=== PATIENT | male | born 1930 | race Caucasian/White ===

== ENCOUNTER 2016-06-18 20:53 | Inpatient (IN) | payer OTHER, BC ==
[~2016-06-18] VITALS: Ht 180.3 cm; Wt 65.9 kg
[~2016-06-18 20:53] MED LIST: ALFU10TA30 PO; ASPEC81 PO; ATEN-173 PO; CLC100 PO; Centrum Silver PO; Ginseng PO; Lorazepam PO; ZINC PO; [UNRECOGNIZED DRUG - OTHER]
[2016-06-19] VITALS (15 sets, daily range): BP systolic 121–199; BP diastolic 72–120; PULSE 76–102; TEMP 36.6–37.1; O2SAT 94–98; Ht 180.3 cm; Wt 65.9 kg
[2016-06-19] MEDS ORDERED: ALUMINUM/MAGNESIUM/SIMETH (MAALOX MAX) 30 ML UDC PO PRN (02:00)
[2016-06-19] MEDS ORDERED: MAGNESIUM HYDROXIDE SUSP 30 ML UDC PO PRN (02:00)
[2016-06-19] MEDS ORDERED: ACETAMINOPHEN 325 MG TAB PO PRN (02:00)
[2016-06-19] MEDS ORDERED: POLYETHYLENE (MIRALAX) 17 GM PACK PO PRN (02:00)
[2016-06-19 02:16] LABS: HEMATOCRIT 25.9 % (42-52); MEAN CELL VOLUME 92.8 fL (80-100); PLATELET COUNT 216 K/uL (130-400); RED BLOOD COUNT 2.79 M/uL (4.7-6.1); WHITE BLOOD COUNT 7.74 K/uL (4.8-10.8)
[2016-06-19 02:25] LABS: INR 1.1 (0.9-1.1); PARTIAL THROMBOPLASTIN RATIO 1.1; PROTHROMBIN TIME (PATIENT) 11.7 SECONDS (9.0-12.0)
[2016-06-19 02:28] LABS: MEAN CORPUSCULAR HGB CONC 31.3 g/dl (32-36)
[2016-06-19 02:34] LABS: BASO % 0.1 %; BASO ABS # 0.01 K/uL (0-0.2); COMPLETE YES; EOS % 0.5 %; IG% 0.3 %; LYMPH ABS # 1.24 K/uL (1.2-3.4); MONO % 7.8 %; NEUT % 75.3 %; POLYCHROMASIA 1+
[2016-06-19] MEDS ORDERED: ONDANSETRON INJ 2 MG/ML 2 ML VIAL ONE (02:41)
[2016-06-19] MEDS: ONDANSETRON INJ 2 MG/ML 2 ML VIAL IV PRN ×2 (02:45→09:36)
[2016-06-19 02:47] LABS: ALB/GLOB RATIO 0.8 (0.9-2); BUN/CREATININE RATIO 20.1 (10-20); CALCIUM 8.2 mg/dl (8.5-10.1); POTASSIUM 4.5 mmol/L (3.5-5.1)
[2016-06-19] MEDS ORDERED: OXYCODONE/ACETAMINOPHEN 5-325 TAB PO PRN (03:00)
[2016-06-19] MEDS ORDERED: HydrALAZINE HCL 20 MG/ML VIAL IV. PRN ×2 (03:00→09:00)
[2016-06-19] MEDS ORDERED: HydrALAZINE HCL 20 MG/ML VIAL ONE (03:12)
[2016-06-19 03:17] LABS: CREATININE 1.9 mg/dl (0.60-1.40)
[2016-06-19] MEDS ORDERED: PANTOprazole INJ 80 MG in DEXTROSE 5% 100ML IV ONE (03:30)
[2016-06-19] MEDS: PANTOprazole INJ 40 MG in DEXTROSE 5% 100ML IV SCH ×5 (03:32→20:24)
[2016-06-19] MEDS: SODIUM CHLORIDE 0.9% 1000ML 1,000 ML IV SCH ×4 (03:32→22:17)
--- NOTE | 2016-06-19 03:57 | History and Physical ---
History & Physical Date & Time of Service: Jun 19, 2016 at 02:58 Chief Complaint: Diarrhea, Gi Bleed Primary Care Physician: Delonte Fragoso M.D. History of Present Illness Source: patient, hospital records ([facility] ER notes) Mr Sylvester is an 85 year old male who is a direct transfer from [facility] for GI bleed due to no colonoscopy suite at [facility]. Yesterday around 3am he started feeling constipated but was able to pass small amounts of formed stool. Around 7am this turned into diarrhea and he had 7 bowel movements from 7-12am. Around midday he noticed blood on wiping and was so weak he couldn't get off of the toilet. He therefore called his daughter in law to call for an ambulance to take him to the ER. He denies any abdominal pain. He is a non smoker, denies NSAIDs, but is on 81mg aspirin (no previous AL or stroke). He was recently admitted as per the [facility] ER notes in april with a duodenal ulcer (Dr Caal) requiring a blood transfusion. He has been having GI issues since Jan 2016. These episode of intermittent diarrhea and constipation last for around 2 days each time. He estimates he has lost about 10lb of weight in this time. He reports 7 admissions to [facility] for GI bleeding but is unsure how many EGDs he has had. He thinks his last colonoscopy was around 20 years previously. He tells me he was very active up until his 2 years previously after having Alzheimer's disease but also these episodes of diarrhea and his blood pressure medication mean he has no energy anymore. Past Medical/Surgical History Renal cell carcinoma s/p nephrectomy (15 year previously) - on Inlyta under Dr Stoner. Recently had iron infusions. Intermittent diarrhea and constipation since Jan 2016 - under Dr Caal, recently found ulcer. As per [facility] ER notes he was admitted there in april with duodenal bulb ulcer requiring a blood transfusion. HTN Anxiety PSHx Right nephrectomy (he report 15 years ago) Spinal surgery - he is unsure about the exact operation but possibly done due to bone mets from renal ca. Social History Smoking Status: Never Smoker Smokeless Tobacco Use: No Alcohol Use: none Drug Use: none Marital Status: Housing status: lives alone Occupational Status: retired Immunizations History of Influenza Vaccine: No Influenza Vaccine Date: Mar 02, 2005 History of Tetanus Vaccine?: Yes Tetanus Immunization Date: Jul 31, 2002 History of Pneumococcal: Yes Pneumococcal Date: Jul 31, 2001 History of Hepatitis B Vaccine: No Multi-Drug Resistant Organisms History of MDRO: No Allergies Coded Allergies: Penicillins (Verified Allergy, Mild, RASH, 05/27/09) Naproxen (Unverified Allergy, ., 10/31/10) Home Medications Scheduled Alfuzosin Hcl (Uroxatral), 10 MG PO DAILY Aspirin Enteric Coated (Ecotrin Or Generic *), 81 MG PO DAILY Atenolol (Tenormin), 25 MG PO DAILY Docusate Sodium (Colace *), 100 MG PO TID [Centrum Silver], 1 TABLET PO DAILY [Ginseng], 100 MG PO DAILY [Lorazepam], 0.5 MG PO PRN [Myrlax], PRN [Zinc], 50 MG PO DAILY Review of Systems Constitutional: No chills, No fever Eyes: No worsening of vision ENT: + hearing loss (chronic) Respiratory: + dyspnea on exertion, No cough, No dyspnea at rest, No hemoptysis , No sputum, No wheezing Cardiovascular: No PND, No chest pain, No claudication, No edema, No orthopnea , No palpitations Abdomen: + GI bleeding, + diarrhea, + nausea, No constipation, No pain, No vomiting Musculoskeletal: No joint pain, No muscle pain Genitourinary - Male: No dysuria, No hematuria, No urinary frequency Psychiatric: + anxiety, + depression symptoms Endocrine: No excessive thirst, No excessive urination Hematologic / Lymphatic: + abnormal bleeding/bruising Integumentary: No itch, No rash Physical Exam Vital Signs Date Time Temp Pulse Resp B/P Pulse Ox O2 Delivery O2 Flow Rate FiO2 06/19/16 02:42 99 171/103 06/19/16 01:20 36.6 91 18 199/120 94 Room Air General Appearance: no apparent distress, + thin Head: normocephalic, atraumatic Eyes: normal inspection, PERRL, EOMI ENT: normal ENT inspection, pharynx normal (dry mucus membranes) Neck: supple, no adenopathy, no JVD, no carotid bruits, trachea midline Respiratory/Chest: chest non-tender, lungs clear, normal breath sounds, no respiratory distress, no accessory muscle use Cardiovascular: regular rate, rhythm, no edema, no murmur, normal peripheral pulses Abdomen/GI: normal bowel sounds, non tender, soft Extremities/Musculoskelatal: no calf tenderness, normal capillary refill, no pedal edema, normal range of motion, + pertinent finding (left lower leg hematoma, (patient report a few weeks old and improving)) 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, no motor/sensory deficits, alert, normal mood/affect Skin: normal color, warm/dry, + pertinent finding (hematoma on left lower limb as above) Diagnostics Laboratory Results Results Past 24 Hours Test 06/19/16 02:05 Range/Units White Blood Count 7.74 4.8-10.8 K/uL Red Blood Count 2.79 4.7-6.1 M/uL Hemoglobin 8.1 14.0-18.0 g/dL Hematocrit 25.9 42-52 % Mean Corpuscular Volume 92.8 80-100 fL Mean Corpuscular Hemoglobin 29.0 25-34 pg Mean Corpuscular Hemoglobin Concent 31.3 32-36 g/dl Platelet Count 216 130-400 K/uL Mean Platelet Volume 9.0 7.4-10.4 fL Neutrophils (%) (Auto) 75.3 % Lymphocytes (%) (Auto) 16.0 % Monocytes (%) (Auto) 7.8 % Eosinophils (%) (Auto) 0.5 % Basophils (%) (Auto) 0.1 % Neutrophils # (Auto) 5.83 1.4-6.5 K/uL Lymphocytes # (Auto) 1.24 1.2-3.4 K/uL Monocytes # (Auto) 0.60 0.11-0.59 K/uL Eosinophils # (Auto) 0.04 0-0.5 K/uL Basophils # (Auto) 0.01 0-0.2 K/uL RDW Standard Deviation 53.1 36.4-46.3 fL RDW Coefficient of Variation 16.0 11.5-14.5 % Immature Granulocyte % (Auto) 0.3 % Immature Granulocyte # (Auto) 0.02 0.00-0.02 K/uL Polychromasia 1+ Prothrombin Time 11.7 9.0-12.0 SECONDS Prothromb Time International Ratio 1.1 0.9-1.1 Activated Partial Thromboplast Time 28.2 21.0-31.0 SECONDS Partial Thromboplastin Ratio 1.1 Sodium Level 143 136-145 mmol/L Potassium Level 4.5 3.5-5.1 mmol/L Chloride Level 106 98-107 mmol/L Carbon Dioxide Level 29 21-32 mmol/L Anion Gap 8.0 3-11 mmol/L Blood Urea Nitrogen 38 7-18 mg/dl BUN/Creatinine Ratio 20.1 10-20 Random Glucose 102 70-99 mg/dl Calcium Level 8.2 8.5-10.1 mg/dl Total Bilirubin 0.3 0.2-1 mg/dl Aspartate Amino Transf (AST/SGOT) 6 15-37 U/L Alanine Aminotransferase (ALT/SGPT) 11 12-78 U/L Alkaline Phosphatase 62 45-117 U/L Total Protein 5.7 6.4-8.2 gm/dl Albumin 2.5 3.4-5.0 gm/dl Globulin 3.2 2.5-4.0 gm/dl Albumin/Globulin Ratio 0.8 0.9-2 Diagnostic Radiology AXR @ [facility] - impression: moderate stool burden. No bowel obstruction. EKG Ordered for the morning Impression Assessment and Plan Documented By: Rajiv Dimas 85 yo male with GI bleed, Hx duodenal ulcer and renal ca. He is unsure about his medical problems and medications and his medication reconciliation from [facility] does not appear to be accurate therefore will request his outpatient records, GI Bleed, Hx duodenal ulcer - Hgb 8.1 - trend H&H - Pantoprazole drip - NPO + IVF @ 125 MLS/HR - Consult GI (previously under Dr Caal @ [facility]) Hx renal cell carcinoma - Hold Inlyta as has association with GI bleeding, perforation and fistula formation + may be cause of diarrhea and nausea - Consult Dr Stoner Anxiety - Continue PRN alprazolam - Continue clonidine 0.1mg BID Hypertension - Currently BP elevated (suspect due to patient not taking usual meds) - Add hydralazine 10 mg Q6H IV PRN for sBP > 180, dBP > 90 - Continue usual medications amlodipine and clonidine - Hold carvedilol 12.5 mg BID as he is having a GI bleed + he notes one of his blood pressure medications is making him feel tired and which may be the carvedilol. Glaucoma - Latanoprost 1 drop each eye daily - I suspect he is on brimonidine in addition but given the reconciled medications from [facility] show this as a powder will await for his outpatient records to prescribe this. Suspect BPH as he is on alfuzosin as per [facility] notes so will continue this pending O/P records Gabapentin 100 mg HS - unsure why he is on this small dose. Will hold currently as unclear indication and increased risk of drowsiness and balance issues. Miscellaneous - Falls risk due to light headedness and weakness secondary to GI bleed VTE prophylaxis - contraindicated chemical prophylaxis - SCDs + TEDs Code - Full, he is unsure about this however and may change his mind Disposition - admit to telemetry, may be able to step down if stable over next 24 hours. Resident Physician Supervision Note: I was present with [Name of resident] during the history and exam. I discussed the case with the resident and agree with the findings and plan as documented in the note. Any exceptions or clarifications are listed here: Ot seen/examined State that he had a GI bleed 6 weeks prior due to PUD and has had increasing bleeding for a few days. Became weak for and [facility] transferred as the endiscopy suite is under renovation O/E AAO x 2 S1,2 CTAB NTND P: Trend Hb Transfuse PRN - pt received 1/2 unit prior to arrival GI consult requested Above discussed with pt and resident Level of Care Telemetry Advanced Directives Existing Living Will: No Existing Power of Armored Service Technician: No Resuscitation Status FULL RESUSCITATION VTE Prophylaxis VTE Risk Assessment Done? Y/N: Yes Risk Level: Moderate Given or contraindicated: T.E.D. Stockings, SCD's, Contraindicated Additional Copies To Delonte Fragoso M.D. Resident Tracking Resident Involvement: Resident Care Provided Care Provided: Adult Hospital Medicine
[2016-06-19 08:27] LABS: HEMATOCRIT 23.4 % (42-52)
[2016-06-19 09:24] LABS: BUN/CREATININE RATIO 20.8 (10-20); CALCIUM 8.1 mg/dl (8.5-10.1); CREATININE 1.8 mg/dl (0.60-1.40); POTASSIUM 4.1 mmol/L (3.5-5.1)
[2016-06-19] MEDS: AMLODIPINE BESYLATE 5 MG TAB PO SCH (09:37)
[2016-06-19] MEDS: ALFUZosin TAB 10 MG TAB PO SCH (09:37)
[2016-06-19] MEDS: CLONIDINE HCL 0.1 MG TAB PO SCH ×2 (09:37→20:25)
--- NOTE | 2016-06-19 11:45 | Family Medicine Progress Note ---
Progress Note Date of Service Jun 19, 2016. Subjective Pt evaluation today including: conversation w/ patient, physical exam, chart review, lab review Pain: Denies PO Intake: NPO Voiding: no voiding problems No acute events overnight. Patient continues to have diarrhea. Had diarrhea this morning and states noticed dark red blood mixed with loose stool. Complains to fatigue and weakness. Denies abdominal pain, nausea, vomiting, chest pain, SOB, dizziness, or any other additional symptoms. Constitutional: + fatigue, + weakness, + weight loss, No chills, No fever Respiratory: No cough, No dyspnea on exertion, No shortness of breath, No sputum, No wheezing Cardiovascular: No chest pain, No edema Abdomen: + diarrhea, No constipation, No nausea, No pain, No vomiting Musculoskeletal: No muscle pain Male : No dysuria Skin: No rash Medications Current Inpatient Medications Medications (Trade) Dose Ordered Sig/Katherine Route Start Time Stop Time Status Last Admin Dose Admin Sodium Chloride (Nss 1000ml) 1,000 ml @ 125 mls/hr Q8H IV 06/19/16 01:53 07/19/16 01:52 06/19/16 03:32 125 MLS/HR Acetaminophen (Tylenol Tab) 650 mg Q4H PRN PO 06/19/16 02:00 07/19/16 01:59 Al Hydrox/Mg Hydrox/Simethicone (Maalox Max Susp) 15 ml Q4H PRN PO 06/19/16 02:00 07/19/16 01:59 Ondansetron HCl (Zofran Inj) 4 mg Q6H PRN IV 06/19/16 02:00 07/19/16 01:59 06/19/16 09:36 4 MG Clonidine HCl (Catapres Tab) 0.1 mg BID PO 06/19/16 09:00 07/19/16 08:59 06/19/16 09:37 0.1 MG Amlodipine Besylate (Norvasc Tab) 2.5 mg QAM PO 06/19/16 09:00 07/19/16 08:59 06/19/16 09:37 2.5 MG Latanoprost (Xalatan Oph Soln) 1 drops QPM OP 06/19/16 21:00 07/19/16 20:59 Alfuzosin HCl (Uroxatral Tab) 10 mg QAM PO 06/19/16 09:00 07/19/16 08:59 06/19/16 09:37 10 MG Alprazolam (Xanax Tab) 0.25 mg Q8H PRN PO 06/19/16 03:00 07/19/16 02:59 Oxycodone/ Acetaminophen 1 tab 1 tab Q4H PRN PO 06/19/16 03:00 07/03/16 02:59 Pantoprazole Sodium/Dextrose (Protonix Inj/D5 100ml) 100 ml @ 20 mls/hr Q5H IV 06/19/16 04:00 07/19/16 03:59 06/19/16 08:56 20 MLS/HR Hydralazine HCl (HydrALAZINE INJ) 5 mg Q6H PRN IV. 06/19/16 09:00 07/19/16 08:59 Objective Vital Signs Date Time Temp Pulse Resp B/P Pulse Ox O2 Delivery O2 Flow Rate FiO2 06/19/16 08:01 37.1 102 16 133/84 97 Room Air 06/19/16 04:00 Room Air 06/19/16 03:45 135/73 06/19/16 03:15 36.8 88 18 171/103 97 Room Air 06/19/16 02:42 99 171/103 06/19/16 01:20 36.6 91 18 199/120 94 Room Air Physical Exam General Appearance: WD/WN, no apparent distress, + cachetic, + thin Neck: supple, trachea midline Respiratory/Chest: chest non-tender, lungs clear, normal breath sounds, no respiratory distress Cardiovascular: regular rate, rhythm, no edema, no murmur Abdomen: normal bowel sounds, non tender, soft Extremities: non-tender, no pedal edema Neurologic/Psychiatric: alert, normal mood/affect, oriented x 3 Skin: normal color, warm/dry Laboratory Results Results Past 24 Hours Test 06/19/16 02:05 06/19/16 08:04 06/19/16 13:55 Range/Units White Blood Count 7.74 4.8-10.8 K/uL Red Blood Count 2.79 4.7-6.1 M/uL Hemoglobin 8.1 7.4 14.0-18.0 g/dL Hematocrit 25.9 23.4 42-52 % Mean Corpuscular Volume 92.8 80-100 fL Mean Corpuscular Hemoglobin 29.0 25-34 pg Mean Corpuscular Hemoglobin Concent 31.3 32-36 g/dl Platelet Count 216 130-400 K/uL Mean Platelet Volume 9.0 7.4-10.4 fL Neutrophils (%) (Auto) 75.3 % Lymphocytes (%) (Auto) 16.0 % Monocytes (%) (Auto) 7.8 % Eosinophils (%) (Auto) 0.5 % Basophils (%) (Auto) 0.1 % Neutrophils # (Auto) 5.83 1.4-6.5 K/uL Lymphocytes # (Auto) 1.24 1.2-3.4 K/uL Monocytes # (Auto) 0.60 0.11-0.59 K/uL Eosinophils # (Auto) 0.04 0-0.5 K/uL Basophils # (Auto) 0.01 0-0.2 K/uL RDW Standard Deviation 53.1 36.4-46.3 fL RDW Coefficient of Variation 16.0 11.5-14.5 % Immature Granulocyte % (Auto) 0.3 % Immature Granulocyte # (Auto) 0.02 0.00-0.02 K/uL Polychromasia 1+ Prothrombin Time 11.7 9.0-12.0 SECONDS Prothromb Time International Ratio 1.1 0.9-1.1 Activated Partial Thromboplast Time 28.2 21.0-31.0 SECONDS Partial Thromboplastin Ratio 1.1 Sodium Level 143 140 136-145 mmol/L Potassium Level 4.5 4.1 3.5-5.1 mmol/L Chloride Level 106 106 98-107 mmol/L Carbon Dioxide Level 29 25 21-32 mmol/L Anion Gap 8.0 9.0 3-11 mmol/L Blood Urea Nitrogen 38 38 7-18 mg/dl Creatinine 1.90 1.80 0.60-1.40 mg/dl Est Creatinine Clear Calc Drug Dose 24.2 26.0 ml/min Estimated GFR () 36.4 38.9 Estimated GFR (Non- 31.4 33.6 BUN/Creatinine Ratio 20.1 20.8 10-20 Random Glucose 102 96 70-99 mg/dl Calcium Level 8.2 8.1 8.5-10.1 mg/dl Total Bilirubin 0.3 0.2-1 mg/dl Aspartate Amino Transf (AST/SGOT) 6 15-37 U/L Alanine Aminotransferase (ALT/SGPT) 11 12-78 U/L Alkaline Phosphatase 62 45-117 U/L Total Protein 5.7 6.4-8.2 gm/dl Albumin 2.5 3.4-5.0 gm/dl Globulin 3.2 2.5-4.0 gm/dl Albumin/Globulin Ratio 0.8 0.9-2 Assessment and Plan 1. GI Bleed with hx of duodenal ulcer - Current Hgb is 7.4 - Continue to trend H&H - C/w Pantoprazole drip - NPO + IVF @ 125 MLS/HR - EGD was done in [facility] on 04/30/2016 and showed 1) A hiatus hernia 2) Normal stomach, biopsy was taken 3) Ulcers found in the distal duodenal bulb, Epinephrine injection therapy was applied to control bleeding. Argon beam coagulation was applied to control bleeding - Colonoscopy was done in [facility] (07/06/2009) and showed 1) Moderately severe diverticulosis found in the sigmoid colon 2) Internal hemorrhoids - Consult GI (previously under Dr Caal @ [facility]) and awaiting for their recommendation and EGD 2. Worsening Anemia - Patient Hgb is trending down - Continue to trend H&H - Transfuse 1 unit of PRBC 3. History of renal cell carcinoma - Continue to hold Inlyta as has association with GI bleeding, perforation and fistula formation + may be cause of diarrhea and nausea - Consult Dr Stoner (Heme/Onc) 4. Anxiety - Continue PRN alprazolam - Continue clonidine 0.1mg BID 5. Hypertension - Currently BP elevated (suspect due to patient not taking usual meds) - Add hydralazine 10 mg Q6H IV PRN for sBP > 180, dBP > 90 - Continue usual medications Amlodipine 2.5mg qam and Clonidine 0.1 BID - Continue to hold carvedilol 12.5 mg BID (GI bleed and he notes one of his blood pressure medications is making him feel tired and which may be the carvedilol). 6. Glaucoma - Latanoprost 1 drop each eye daily - I suspect he is on brimonidine in addition but given the reconciled medications from [facility] show this as a powder will await for his outpatient records to prescribe this. 7. BPH - C/w Alfuzosin 10mg qam 8. Currently holding Gabapentin 100mg given not sure why he is on such small dose. Will continue to hold as unclear indication and increased risk of drowsiness and balance issues. 9. DVT prophylaxis - SCDs and TEDs 10. Code Status - Full code Resident Physician Supervision Note: I interviewed and examined the patient. Discussed with Dr. Sanchez and agree with findings and plan as documented in the note. Any exceptions or clarifications are listed here: 85-year-old male admitted in transfer from [facility] for acute GI bleed. The endoscopy unit at [facility] temporary closed for renovations. I was able to speak with Dr. Orozco, [place] [facility], who had seen the patient previously, most recently for an EGD in April 2016. At that time a bleeding ulcer was found in the distal duodenal bulb. Upon my examination, the patient was tired but without complaints. He denied abdominal pain. At that time he was on intravenous fluids and protonic strip. The patient did have one heme-positive stool. Repeat hemoglobin today showed a continued drop and as such agree with transfusion 1 unit packed red blood cells. Awaiting gastroenterology consultation for EGD. Documented By: Wang Kirkpatrick Continued [facility] stay due to: multiple IV medications needed Discharge planning: uncertain
[2016-06-19 14:35] LABS: HEMATOCRIT 21.1 % (42-52)
[2016-06-19] MEDS ORDERED: SUCR1TAB29 PO (15:56)
[2016-06-19] MEDS ORDERED: AXIT5TAB PO (15:56)
[2016-06-19] MEDS ORDERED: AMLO2.5T PO (15:56)
[2016-06-19] MEDS ORDERED: ALPPOPS5 OPL (15:56)
[2016-06-19] MEDS ORDERED: PARO1TAB27 PO (15:56)
[2016-06-19] MEDS ORDERED: LATA0.5S OP (15:56)
[2016-06-19] MEDS ORDERED: PANT40TA PO (15:56)
[2016-06-19] MEDS ORDERED: ALPR-411 PO (15:56)
[2016-06-19] MEDS ORDERED: BNC/20125 PO (15:56)
[2016-06-19] MEDS ORDERED: MULT-845 PO (15:56)
[2016-06-19] MEDS ORDERED: GABA-112 PO (15:56)
[2016-06-19] MEDS ORDERED: CARV12.52 PO (15:56)
[2016-06-19] MEDS ORDERED: OXYC-643 PO (15:56)
[2016-06-19] MEDS ORDERED: ONDA4TAB46 PO (15:56)
[2016-06-19] MEDS ORDERED: ZINC1CAP PO (15:56)
[2016-06-19] MEDS ORDERED: PROPOFOL IV EMULSION 10 MG/ML 20 ML VIAL IV ONE (16:55)
[2016-06-19] MEDS ORDERED: LIDOCAINE HCL 2% 2 ML VIAL (20MG/ML) ONE (16:55)
[2016-06-19] MEDS ORDERED: FENTANYL CITRATE INJ 50 MCG/1 ML 2 ML VIAL ONE (16:56)
--- NOTE | 2016-06-19 17:03 | Endo History and Physical ---
History & Physical Date of Service: Jun 19, 2016. Chief Complaint: Referring Physician: History of Present Illness melena; diarrhea; acute blood loss anemia Past Surgical History Hx Cardiac Surgery: No Hx Abdominal Surgery: No Hx Post-Op Nausea and Vomiting: No Hx Cancer Surgery: Yes (Right nephrectomy) Hx Thoracic Surgery: Yes (2 lumbar vertebra removed) Hx Orthopedic: No Hx Urinary Tract Surgery: No Social History Smoking Status: Never Smoker Smokeless Tobacco Use: No Hx Substance Use: No Hx Alcohol Use: No Allergies Coded Allergies: Penicillins (Verified Allergy, Mild, RASH, 05/27/09) Naproxen (Unverified Allergy, ., 10/31/10) Current Medications Reported Home Medications Medications Dose Route/Sig Max Daily Dose Days Date Category Carafate (Sucralfate) 1 Gm Tab 1 Tab PO BID 30 06/19/16 Reported Xalatan 0.005% Oph Michelle (Latanoprost) 0.005 % Michelle 1 Drops OP HS 06/19/16 Reported Alphagan P (Brimonidine Tartrate) 75 Drops/5 Ml Soln 1 Drops OPL BID 06/19/16 Reported Zinc Sulfate 220 Mg Cap 50 Mg PO DAILY 06/19/16 Reported Protonix (Pantoprazole Sodium) 40 Mg Tab 80 Mg PO DAILY 06/19/16 Reported Centrum Silver Adult 50+ (Multiple Vitamins W/ Minerals) 1 Tab Tab 1 Tab PO DAILY 06/19/16 Reported Inlyta (Axitinib) 5 Mg Tab 5 Mg PO Q12 06/19/16 Reported Oxycodone/Acetaminophen 5MG/325MG (Oxycodone/Acetaminophen) 1 Tab Tab 2 Tablets PO Q4H PRN 06/19/16 Reported Neurontin (Gabapentin) 100 Mg Cap 100 Mg PO HS 06/19/16 Reported Paxil (Paroxetine HCl) 20 Mg Tab 20 Mg PO DAILY 06/19/16 Reported Xanax (Alprazolam) 0.5 Mg Tab 0.5 Mg PO Q8 PRN 06/19/16 Reported Zofran (Ondansetron HCl) 4 Mg Tab 4 Mg PO Q6H PRN 06/19/16 Reported Coreg (Carvedilol) 12.5 Mg Tab 1 Tab PO DAILY 90 06/19/16 Reported Norvasc (Amlodipine Besylate) 2.5 Mg Tab 2.5 Mg PO DAILY 06/19/16 Reported Benicar Hct 20/12.5 (Olmesartan/HCTZ) Tab 1 Tab PO DAILY 30 06/19/16 Reported Colace * (Docusate Sodium) 100 Mg Cap 100 Mg PO TID 03/01/11 Reported Uroxatral (Alfuzosin HCl) 10 Mg Tab 10 Mg PO DAILY 10/18/10 Reported Ecotrin Or Generic * (Aspirin) 81 Mg Ectab 81 Mg PO DAILY 10/18/10 Reported Vital Signs Weight (Kilograms): 61.200 Height (Feet): 5 Height (Inches): 11.00 Date Time Temp Pulse Resp B/P Pulse Ox O2 Delivery O2 Flow Rate FiO2 06/19/16 16:57 36.7 98 18 143/87 98 Room Air 06/19/16 16:50 36.7 89 18 132/91 98 06/19/16 16:34 36.6 90 19 128/72 97 06/19/16 15:15 36.7 92 18 121/80 96 Room Air 06/19/16 12:17 36.8 94 20 130/77 97 Room Air 06/19/16 12:00 95 Room Air 06/19/16 08:01 37.1 102 16 133/84 97 Room Air 06/19/16 08:00 97 Room Air 06/19/16 04:00 Room Air 06/19/16 03:45 135/73 06/19/16 03:15 36.8 88 18 171/103 97 Room Air 06/19/16 02:42 99 171/103 06/19/16 01:20 36.6 91 18 199/120 94 Room Air Physical Exam AAo x3 Nl S1 S2 Lungs CTA Abd soft NT/ND + BS - CCE Assessment and Plan EGD for melena/diarrhea now
--- NOTE | 2016-06-19 17:59 | GI REPORT ---
Procedure Date: 06/19/2016 5:30 PM Procedure: Upper GI endoscopy Indications: Acute post hemorrhagic anemia, Melena, Acute duodenal ulcer, Suspected acute duodenal ulcer with hemorrhage Medicines: Propofol per Anesthesia Complications: No immediate complications. Estimated blood loss: Minimal. Estimated Blood Loss: Estimated blood loss was minimal. Procedure: Pre-Anesthesia Assessment: - Prior to the procedure, a History and Physical was performed, and patient medications and allergies were reviewed. The patient's tolerance of previous anesthesia was also reviewed. The risks and benefits of the procedure and the sedation options and risks were discussed with the patient. All questions were answered, and informed consent was obtained. Prior Anticoagulants: The patient has taken no previous anticoagulant or antiplatelet agents. ASA Grade Assessment: III - A patient with severe systemic disease. After reviewing the risks and benefits, the patient was deemed in satisfactory condition to undergo the procedure. After obtaining informed consent, the endoscope was passed under direct vision. Throughout the procedure, the patient's blood pressure, pulse, and oxygen saturations were monitored continuously. The On-site loaner was introduced through the mouth, and advanced to the third part of duodenum. The upper GI endoscopy was accomplished without difficulty. The patient tolerated the procedure well. Findings: The examined esophagus was normal. A small hiatus hernia was found. The proximal extent of the gastric folds (end of tubular esophagus) was 39 cm from the incisors. The hiatal narrowing was 41 cm from the incisors. The Z-line was 39 cm from the incisors. A widely patent, non-obstructing and mild Schatzki ring (acquired) was found at the gastroesophageal junction. The entire examined stomach was normal. The gastric body and gastric antrum were normal. Biopsies were taken with a cold forceps for histology. Estimated blood loss was minimal. Verification of patient identification for the specimen was done by the physician and general maintenance technician using the patient's name and medical record number. One non-bleeding cratered duodenal ulcer with no stigmata of bleeding was found in the first part of the duodenum and in the second part of the duodenum. The lesion was 15 mm in largest dimension. This is proximal to ampulla and provided mild resistance ( stenosis) at this site. The 2nd part of the duodenum and 3rd part of the duodenum were normal. Biopsies for histology were taken with a cold forceps for evaluation of celiac disease. Biopsies were taken with a cold forceps for histology. Estimated blood loss was minimal. Verification of patient identification for the specimen was done by the physician and general maintenance technician using the patient's name and medical record number. The cardia and gastric fundus were normal on retroflexion. Retained gastric contents are not identified on this exam. Impression: - Normal esophagus. - Small hiatus hernia. - Widely patent, non-obstructing and mild Schatzki ring. - Normal stomach. - Normal gastric body and antrum. Biopsied. - One non-bleeding duodenal ulcer with no stigmata of bleeding. (see above) - Normal 2nd part of the duodenum and 3rd part of the duodenum. Biopsied. Recommendation: - [facility]. - Clear liquid diet. - Use a proton pump inhibitor IV BID. - Await pathology results. - If bleeding occurs, obtained tagged red cell scan. Also if bleeding recurs and for diarrhea, colonoscopy( once stable0 should be considered to exclude bleeding sources and sources of diarrhea. MD Misha Ahuja MD 06/19/2016 5:58:50 PM This report has been signed electronically. Note Initiated On: 06/19/2016 5:30 PM I attest to the content of the Intraoperative Record and orders documented therein, exceptions below
--- NOTE | 2016-06-19 18:03 | Anesthesiology Progress Note ---
Anesthesia Post Op Note Date & Time Jun 19, 2016 at 18:02 Vital Signs Vital Signs Past 12 Hours Date Time Temp Pulse Resp B/P Pulse Ox O2 Delivery O2 Flow Rate FiO2 06/19/16 18:00 36.6 90 20 120/71 100 Room Air 06/19/16 17:45 36.6 83 20 92/54 100 Mask 06/19/16 17:10 36.6 99 20 142/82 97 Room Air 06/19/16 16:57 36.7 98 18 143/87 98 Room Air 06/19/16 16:50 36.7 89 18 132/91 98 06/19/16 16:34 36.6 90 19 128/72 97 06/19/16 16:00 96 Room Air 06/19/16 15:15 36.7 92 18 121/80 96 Room Air 06/19/16 12:17 36.8 94 20 130/77 97 Room Air 06/19/16 12:00 95 Room Air 06/19/16 08:01 37.1 102 16 133/84 97 Room Air 06/19/16 08:00 97 Room Air Notes Mental Status: alert / awake / arousable, participated in evaluation Pt Amnestic to Procedure: Yes Nausea / Vomiting: adequately controlled Pain: adequately controlled Airway Patency, RR, SpO2: stable & adequate BP & HR: stable & adequate Hydration State: stable & adequate Anesthetic Complications: no major complications apparent
[2016-06-19] MEDS: LATANOPROST 0.005% OP SOLN 2.5 ML BTL OP SCH (20:26)
[2016-06-19 20:37] LABS: HEMATOCRIT 23.9 % (42-52)
[2016-06-19] MEDS ORDERED: GABAPENTIN 100 MG CAP PO SCH (21:00)
[2016-06-20] VITALS (15 sets, daily range): BP systolic 112–146; BP diastolic 71–94; PULSE 70–90; TEMP 36.3–36.8; O2SAT 90–98
[2016-06-20] MEDS: PANTOprazole INJ 40 MG in DEXTROSE 5% 100ML IV SCH (01:30)
[2016-06-20 02:26] LABS: BASO % 0.1 %; BASO ABS # 0.01 K/uL (0-0.2); EOS % 0.9 %; HEMATOCRIT 23.4 % (42-52); IG% 0.4 %; LYMPH % 12.1 %; LYMPH ABS # 0.81 K/uL (1.2-3.4); MEAN CELL VOLUME 90.3 fL (80-100); MEAN CORPUSCULAR HEMOGLOBIN 29.7 pg (25-34); MEAN CORPUSCULAR HGB CONC 32.9 g/dl (32-36); MEAN PLATELET VOLUME 9.1 fL (7.4-10.4); MONO % 6.4 %; NEUT % 80.1 %; PLATELET COUNT 169 K/uL (130-400); RED BLOOD COUNT 2.59 M/uL (4.7-6.1); WHITE BLOOD COUNT 6.69 K/uL (4.8-10.8)
--- NOTE | 2016-06-20 02:49 | GASTROINTESTINAL CONSULTATION ---
DATE OF CONSULTATION: 06/19/2016 REQUESTING PHYSICIAN: Dr. Patino. CHIEF COMPLAINT: Melena, diarrhea, acute GI blood loss. HISTORY OF PRESENT ILLNESS: Mr. Sylvester is an 85-year-old male who was transferred from [facility] for symptoms of GI bleeding. The patient actually had a history of GI bleeding in April for which a large ulcer in the duodenum was apparently treated. The patient received 3-4 units of blood at that time by his history and was discharged on acid-blocking medication. The patient developed symptoms of a bout of diarrhea with several bowel movements and then bloody stools with wiping. The patient denies NSAID use but takes 81 mg of aspirin daily. The patient reports the symptoms of GI issues since the Fall 2015 with a fluctuating diarrhea and constipation. The patient also reports a 10- to 15 -pound weight loss. The patient describes that he has had several admissions to [facility] for GI bleeding. He has not had a recent colonoscopy. PAST MEDICAL HISTORY: Includes renal cell carcinoma with nephrectomy 15 years ago and was on iron infusions. The patient reports intermittent diarrhea and constipation with the ulcer recently identified above. He also has hypertension and anxiety. PAST SURGICAL HISTORY: He had a right nephrectomy in approximately 2001 and spinal surgery. SOCIAL HISTORY: The patient denies tobacco or alcohol use, is , lives alone and is retired. ALLERGIES: TO PENICILLINS AND NAPROXEN. HOME MEDICATIONS: Include alfuzosin, enteric-coated aspirin 81 mg, atenolol, Colace, Centrum Silver, ginseng, lorazepam, MiraLax and zinc. REVIEW OF SYSTEMS: Otherwise noncontributory based on 14-point exam. The patient denies hematemesis, coffee-ground emesis, odynophagia, dysphagia. There is no significant abdominal pain. Only the fluctuating bowel habits which have tended to be more of diarrhea pattern lately. He denies dysuria or hematuria, reports no rashes, significant joint aches, disorders of skin or hair and has no focal neurologic defects such as abnormal gait or tremors. PHYSICAL EXAMINATION: VITAL SIGNS: On admission - afebrile at 36.6, heart rate 91, respirations 18, blood pressure 199/120. He is 94% on room air. GENERAL: The patient is awake, alert and oriented x3. HEENT: The sclerae are anicteric. Conjunctivae are moist. Pupils are round. NECK: There is no cervical or supraclavicular adenopathy. I do not appreciate thyromegaly. NEUROLOGIC: The patient has a slightly wasted appearance in the bitemporal area as well as in the intercostal spaces. HEART: Normal S1, S2 without rubs, gallops or murmurs. LUNGS: Showed decreased distant breath sounds. ABDOMEN: Soft, flat, nontender, nondistended with normal bowel sounds. There is no rebound or guarding. I do not appreciate abdominal bruits or masses, no hepatosplenomegaly. EXTREMITIES: Without clubbing, cyanosis or edema. RECTAL: Deferred at this time. IMAGING DATA: The patient reported a CT scan, perhaps at the outside hospital, but is unaware of the report results or when this was actually done. LABORATORY STUDIES: On admission - white count today 7.7, hemoglobin 8.1, hematocrit 25.9, the MCV is normal at 92, platelets 216,000. INR is 1.1. Potassium 4.5, the BUN and creatinine ratio is 20, and BUN is 38. ALT and AST are normal as is alkaline phosphatase, total protein at 5.7, although the albumin is diminished. Abdominal x-ray at [facility] revealed a stool burden, but no evidence of a bowel obstruction. IMPRESSION: The patient with history of duodenal ulcer with description of melena, diarrhea and a drop in his hemoglobin upon admission. Some of this may have been hydration. It is unclear what his discharge hemoglobin was at [facility] or prior to this admission. PLANS AND RECOMMENDATIONS: I made the following recommendations: Will proceed with upper endoscopy today to exclude an upper GI bleeding source and also to sample the duodenum and small bowel for his symptoms of diarrhea along with weight loss. In addition, samples for H. pylori will be taken. Depending on the results of upper endoscopy at some point colonoscopy, once able, and following bowel preparation is recommended not only to assess for proximal colon bleeding sources as well as the diarrhea and weight loss described ever since the Fall of 2016. Would continue IV PPI therapy. Follow hemoglobins every 12 hours today and then daily thereafter and further recommendations once upper endoscopy is completed. All questions answered. Thank you for allowing me to participate in this pleasant gentleman's care. AIME
[2016-06-20 02:56] LABS: COMPLETE YES; POLYCHROMASIA 1+
--- NOTE | 2016-06-20 06:53 | Clinical Documentation Query ---
CLINICAL DOCUMENTATION QUERY 85 year old male who is a direct transfer from [facility] for GI bleed due to no colonoscopy suite at [facility]. In your clinical opinion is this patient being managed for: ( ) NILO with CKD III in setting of GI bleed, anemia and solitary kidney treated with 1 unit of PRBC's and IVF's. ( ) CKD stage III ( ) Other explanation of clinical findings (Please Explain) ( ) Unable to determine (Please Define) ( ) Need to Discuss ( X) Not Agree The medical record reflects the following clinical findings, treatment, and risk factors. Clinical Indicators: Hgb 6.9, Hct 21.1, BUN 38, Creatinine 1.90, GFR 31.4, Treatment: IVF's, daily PRP's, 1 unit of PRBC's, Risk Factors: Age, HTN, solitary kidney, hx of renal cell carcinoma. Please clarify and document your clinical opinion in the progress notes and discharge summary. Terms such as "probable", "suspected", "likely", "questionable", "possible", or "still to be ruled out" are acceptable. IF IN AGREEMENT, YOU MUST DOCUMENT ABOVE DIAGNOSTIC STATEMENT IN DAILY PROGRESS NOTES AND DISCHARGE SUMMARY. This document is not part of the patient's record. Thank You, Harish Tracy, RN [phone]
[2016-06-20] MEDS: SODIUM CHLORIDE 0.9% 1000ML 1,000 ML IV SCH ×2 (07:17→14:42)
[2016-06-20] MEDS: ALFUZosin TAB 10 MG TAB PO SCH (08:30)
[2016-06-20] MEDS: ONDANSETRON INJ 2 MG/ML 2 ML VIAL IV PRN (08:30)
[2016-06-20] MEDS: AMLODIPINE BESYLATE 5 MG TAB PO SCH (08:31)
[2016-06-20] MEDS: CLONIDINE HCL 0.1 MG TAB PO SCH ×2 (08:31→21:06)
[2016-06-20 08:37] LABS: HEMATOCRIT 23.7 % (42-52)
[2016-06-20 08:41] LABS: INR 1.1 (0.9-1.1); PROTHROMBIN TIME (PATIENT) 12.1 SECONDS (9.0-12.0)
[2016-06-20] MEDS ORDERED: SUCRALFATE 1 GM TAB PO SCH (09:00)
--- NOTE | 2016-06-20 09:04 | Family Medicine Progress Note ---
Progress Note Date of Service Jun 20, 2016. Subjective Pt evaluation today including: conversation w/ patient, physical exam, chart review, lab review Pain: denies PO Intake: clear liquid diet Patient was seen at the bedside. He states that last night he had several bloody diarrhea and this morning had 2 episodes. He is nauseated this morning but denies vomiting. Denies abdominal pain, SOB. chest pain, cough, dizziness or any other additional symptoms. On tele this morning he had 1 episode of Afib (lasted for 6 secs) and SVT. His heart rate was mostly on 80s. Constitutional: + fatigue, + weight loss, No chills, No fever Respiratory: No cough, No dyspnea on exertion, No shortness of breath, No sputum, No wheezing Cardiovascular: No chest pain, No edema Abdomen: + GI bleeding, + diarrhea (bloody diarrhea), + nausea, No constipation, No pain, No vomiting Musculoskeletal: No muscle pain Male : No dysuria Skin: No rash Medications Current Inpatient Medications Medications (Trade) Dose Ordered Sig/Katherine Route Start Time Stop Time Status Last Admin Dose Admin Sodium Chloride (Nss 1000ml) 1,000 ml @ 125 mls/hr Q8H IV 06/19/16 01:53 07/19/16 01:52 06/20/16 07:17 125 MLS/HR Acetaminophen (Tylenol Tab) 650 mg Q4H PRN PO 06/19/16 02:00 07/19/16 01:59 Al Hydrox/Mg Hydrox/Simethicone (Maalox Max Susp) 15 ml Q4H PRN PO 06/19/16 02:00 07/19/16 01:59 Ondansetron HCl (Zofran Inj) 4 mg Q6H PRN IV 06/19/16 02:00 07/19/16 01:59 06/20/16 08:30 4 MG Clonidine HCl (Catapres Tab) 0.1 mg BID PO 06/19/16 09:00 07/19/16 08:59 06/20/16 08:31 0.1 MG Amlodipine Besylate (Norvasc Tab) 2.5 mg QAM PO 06/19/16 09:00 07/19/16 08:59 06/20/16 08:31 2.5 MG Latanoprost (Xalatan Oph Soln) 1 drops QPM OP 06/19/16 21:00 07/19/16 20:59 06/19/16 20:26 1 DROPS Alfuzosin HCl (Uroxatral Tab) 10 mg QAM PO 06/19/16 09:00 07/19/16 08:59 06/20/16 08:30 10 MG Alprazolam (Xanax Tab) 0.25 mg Q8H PRN PO 06/19/16 03:00 07/19/16 02:59 Oxycodone/ Acetaminophen (Percocet 5-325mg Tab) 1 tab Q4H PRN PO 06/19/16 03:00 07/03/16 02:59 Hydralazine HCl 5 mg 5 mg Q6H PRN IV. 06/19/16 09:00 07/19/16 08:59 Pantoprazole Sodium/Syringe (Protonix Inj/ Syringe) 10 ml @ 5 mls/min DAILY@ IV 06/20/16 09:00 07/20/16 08:59 Sucralfate (Carafate Tab) 1 gm BID PO 06/20/16 09:00 07/20/16 08:59 Objective Vital Signs Date Time Temp Pulse Resp B/P Pulse Ox O2 Delivery O2 Flow Rate FiO2 06/20/16 07:42 36.8 84 18 141/88 97 Room Air 06/20/16 04:00 36.5 85 18 123/71 97 Room Air 06/20/16 04:00 Room Air 06/20/16 00:00 36.7 90 17 121/76 96 Room Air 06/19/16 23:59 Room Air 06/19/16 20:00 Room Air 06/19/16 19:10 36.7 84 17 139/91 98 Room Air 06/19/16 18:25 36.7 77 18 126/91 98 Room Air 06/19/16 18:25 36.7 76 18 126/91 98 06/19/16 18:09 88 20 123/79 99 Room Air 06/19/16 18:00 36.6 90 20 120/71 100 Room Air 06/19/16 17:45 36.6 83 20 92/54 100 Mask 06/19/16 17:10 36.6 99 20 142/82 97 Room Air 06/19/16 16:57 36.7 98 18 143/87 98 Room Air 06/19/16 16:50 36.7 89 18 132/91 98 06/19/16 16:34 36.6 90 19 128/72 97 06/19/16 16:00 96 Room Air 06/19/16 15:15 36.7 92 18 121/80 96 Room Air 06/19/16 12:17 36.8 94 20 130/77 97 Room Air 06/19/16 12:00 95 Room Air Physical Exam General Appearance: WD/WN, no apparent distress, + cachetic, + thin Neck: supple, trachea midline Respiratory/Chest: chest non-tender, lungs clear, normal breath sounds, no respiratory distress, no accessory muscle use Cardiovascular: regular rate, rhythm, no edema Abdomen: normal bowel sounds, non tender, soft, no pulsatile mass Extremities: non-tender, no pedal edema Neurologic/Psychiatric: alert, normal mood/affect, oriented x 3 Skin: normal color, warm/dry Laboratory Results Results Past 24 Hours Test 06/19/16 13:55 06/19/16 20:20 06/20/16 01:50 06/20/16 08:16 Range/Units Hemoglobin 6.9 7.8 7.7 7.6 14.0-18.0 g/dL Hematocrit 21.1 23.9 23.4 23.7 42-52 % White Blood Count 6.69 4.8-10.8 K/uL Red Blood Count 2.59 4.7-6.1 M/uL Mean Corpuscular Volume 90.3 80-100 fL Mean Corpuscular Hemoglobin 29.7 25-34 pg Mean Corpuscular Hemoglobin Concent 32.9 32-36 g/dl Platelet Count 169 130-400 K/uL Mean Platelet Volume 9.1 7.4-10.4 fL Neutrophils (%) (Auto) 80.1 % Lymphocytes (%) (Auto) 12.1 % Monocytes (%) (Auto) 6.4 % Eosinophils (%) (Auto) 0.9 % Basophils (%) (Auto) 0.1 % Neutrophils # (Auto) 5.35 1.4-6.5 K/uL Lymphocytes # (Auto) 0.81 1.2-3.4 K/uL Monocytes # (Auto) 0.43 0.11-0.59 K/uL Eosinophils # (Auto) 0.06 0-0.5 K/uL Basophils # (Auto) 0.01 0-0.2 K/uL RDW Standard Deviation 55.0 36.4-46.3 fL RDW Coefficient of Variation 17.0 11.5-14.5 % Immature Granulocyte % (Auto) 0.4 % Immature Granulocyte # (Auto) 0.03 0.00-0.02 K/uL Polychromasia 1+ Prothrombin Time 12.1 9.0-12.0 SECONDS Prothromb Time International Ratio 1.1 0.9-1.1 Activated Partial Thromboplast Time 25.1 21.0-31.0 SECONDS Partial Thromboplastin Ratio 1.0 Microbiology Results 06/19/16 C.difficile Toxin B Gene (PCR) - Final, Complete No C. difficile toxin B gene detected Assessment and Plan 1. GI Bleed with hx of duodenal ulcer - Current Hgb is 7.7 - Continue to trend H&H - D/c Pantoprazole drip per GI recommendation - Start IV Protonix 40mg - IVF @ 125 MLS/HR - Start on liquid diet - EGD was done in [facility] on 04/30/2016 and showed 1) A hiatus hernia 2) Normal stomach, biopsy was taken 3) Ulcers found in the distal duodenal bulb, Epinephrine injection therapy was applied to control bleeding. Argon beam coagulation was applied to control bleeding - Colonoscopy was done in [facility] (07/06/2009) and showed 1) Moderately severe diverticulosis found in the sigmoid colon 2) Internal hemorrhoids - Consult GI (previously under Dr Caal @ [facility]) and awaiting for their recommendation and EGD - EGD (06/19): 1) Normal stomach 2) Normal gastric body and antrum (biopsied) 3) One non-bleeding duodenal ulcer with no stigmata of bleeding 4) Normal 2nd part of the duodenum and 3rd part of the duodenum ( biopsied) - GI was consulted (Dr. Barksdale) and recommended: Clear liquid diet, IV PPI BID, if bleeding occurs, obtained tagged red cell scan. Also if bleeding recurs and for diarrhea colonoscopy once patient is stable. - Possible colonoscopy tomorrow, will wait for GI recommendation 2. Diarrhea - Patient continues to have bloody diarrhea, etiology still unclear - EGD performed on 06/19 showed no bleeding duodenal ulcer - Possible colonoscopy tomorrow, will wait for GI recommendation - Currently on clear liquid diet - C. Diff is negative - GI was consulted and will continue to appreciate their recommendation 3. Worsening Anemia - Continue to trend Hgb - Transfused 1 unit of PRBC on 06/19 - Transfused second unit of blood (06/20) - Continue to monitor 4. Duodenal ulcers - D/c IV Protonix drip - Start IV Protonix 40mg BID - Resume home medication Sucralfate 1gm BID 5. History of renal cell carcinoma - Continue to hold Inlyta as has association with GI bleeding, perforation and fistula formation + may be cause of diarrhea and nausea - Consult Heme/Onc, awaiting for their recommendation about holding Inlyta 6. Anxiety - Continue PRN alprazolam - Continue clonidine 0.1mg BID 7. Hypertension - Currently BP elevated (suspect due to patient not taking usual meds) - Add hydralazine 10 mg Q6H IV PRN for sBP > 180, dBP > 90 - Continue usual medications Amlodipine 2.5mg qam and Clonidine 0.1 BID - Continue to hold carvedilol 12.5 mg BID (GI bleed and he notes one of his blood pressure medications is making him feel tired and which may be the carvedilol). 6. Glaucoma - Latanoprost 1 drop each eye daily - 8. BPH - C/w Alfuzosin 10mg qam 11. DVT prophylaxis - SCDs and TEDs 12. Code Status - Full code (not sure might change later) Currently holding Gabapentin 100mg given not sure why he is on such small dose. Will continue to hold as unclear indication and increased risk of drowsiness and balance issues. Resident Physician Supervision Note: I was present with Dr. Sanchez during the history and exam. I discussed the case with the resident and agree with the findings and plan as documented in the note. Any exceptions or clarifications are listed here: 85 y/o male admitted in transfer from [facility] with suspect acute GI bleed. GI consultation appreciated with EGD last evening with results as noted above. Patient has had continued dark black stools overnight, although remains hemodynamically stable at this point. Recommend transfusing of a second unit of PRBCs this morning. Potential colonoscopy tomorrow. Documented By: Wang Kirkpatrick
[2016-06-20 09:20] LABS: BUN/CREATININE RATIO 25.2 (10-20); CREATININE 1.7 mg/dl (0.60-1.40); POTASSIUM 3.8 mmol/L (3.5-5.1)
[2016-06-20] MEDS: PANTOprazole INJ 40 MG in SYRINGE 0 ML IV SCH ×2 (11:12→21:04)
[2016-06-20 16:11] LABS: HEMATOCRIT 27.9 % (42-52)
[2016-06-20 20:27] LABS: HEMATOCRIT 25.4 % (42-52)
[2016-06-20] MEDS: BRIMONIDINE TARTRATE 0.2% 5ML OPL SCH (21:05)
[2016-06-20] MEDS: LATANOPROST 0.005% OP SOLN 2.5 ML BTL OP SCH (21:05)
[2016-06-20] MEDS: SUCRALFATE 1 GM/10 ML UDC PO SCH (21:05)
[2016-06-20] MEDS: GABAPENTIN 100 MG CAP PO SCH (21:06)
[2016-06-21] VITALS (11 sets, daily range): BP systolic 97–148; BP diastolic 69–87; PULSE 70–127; TEMP 36.3–36.7; O2SAT 96–98
[2016-06-21] MEDS: SODIUM CHLORIDE 0.9% 1000ML 1,000 ML IV SCH ×3 (01:53→18:11)
[2016-06-21] MEDS ORDERED: METOPROLOL TARTRATE 1 MG/ML VIAL IV STA ×2 (05:42→06:29)
[2016-06-21 06:25] LABS: BLOOD UREA NITROGEN 44 mg/dl (7-18); BUN/CREATININE RATIO 29.4 (10-20); CALCIUM 7.4 mg/dl (8.5-10.1); CARBON DIOXIDE 23 mmol/L (21-32); CHLORIDE 114 mmol/L (98-107); MAGNESIUM 1.8 mg/dl (1.8-2.4); PHOSPHORUS 2.9 mg/dl (2.5-4.9); POTASSIUM 3.6 mmol/L (3.5-5.1); SODIUM 146 mmol/L (136-145)
[2016-06-21 06:27] LABS: GLUCOSE 82 mg/dl (70-99)
[2016-06-21] MEDS ORDERED: MAGNESIUM SULFATE 1GM / D5W 1 GM in PREMIXED IN D5W 100 ML IV STA (06:35)
[2016-06-21 06:36] LABS: THYROID STIMULATING HORMONE 2.57 uIu/ml (0.300-4.500)
[2016-06-21] MEDS ORDERED: DILTIAZEM BOLUS / DRIP IV STA (06:47)
[2016-06-21 06:51] LABS: HEMATOCRIT 26.3 % (42-52); MEAN CORPUSCULAR HEMOGLOBIN 28.4 pg (25-34); MEAN CORPUSCULAR HGB CONC 32.3 g/dl (32-36); MEAN PLATELET VOLUME 9.1 fL (7.4-10.4); PLATELET COUNT 169 K/uL (130-400); RED BLOOD COUNT 2.99 M/uL (4.7-6.1); WHITE BLOOD COUNT 5.89 K/uL (4.8-10.8)
[2016-06-21] MEDS ORDERED: DILTIAZEM HCL INJ 125 MG in DEXTROSE 5% 100ML IV PRN (07:15)
[2016-06-21] MEDS ORDERED: DIGOXIN 0.25 MG TAB PO ONE (07:30)
[2016-06-21] MEDS ORDERED: DILTIAZEM HCL 5 MG/ML 5 ML VIAL IV SCH (07:30)
[2016-06-21] MEDS: PANTOprazole INJ 40 MG in SYRINGE 0 ML IV SCH ×2 (08:07→20:42)
[2016-06-21] MEDS: POTASSIUM CHLR 10 MEQ / WTR 10 MEQ in PREMIXED WATER 100 ML IV SCH ×2 (08:07→09:13)
[2016-06-21] MEDS: SUCRALFATE 1 GM/10 ML UDC PO SCH ×2 (08:08→20:43)
[2016-06-21] MEDS: MEGESTROL ACETATE 800 MG/20 ML UDP PO SCH (08:08)
[2016-06-21] MEDS: BRIMONIDINE TARTRATE 0.2% 5ML OPL SCH ×2 (08:08→20:42)
[2016-06-21] MEDS: ALFUZosin TAB 10 MG TAB PO SCH (08:09)
--- NOTE | 2016-06-21 09:36 | ECHOCARDIOGRAM REPORT ---
*NOTICE TO RECEIVING [employer] This information is strictly Confidential and protected under [place] law. [place] law prohibits you from making any further disclosure of this information unless further disclosure is expressly permitted by the written consent of the person to whom it pertains or is authorized by law. A general authorization for the release of medical or other information is not sufficient for this purpose. Hospital accepts no responsibility if the information is made available to any other person, INCLUDING THE PATIENT. Interpretation Summary * Name: BLE HAQ Study Date: 06/21/2016 06:51 AM BP: 95/66 mmHg * Patient Location: C.2E\S\E203\S\1 HR: 135 * : 1930 (M/d/yyyy) Gender: Male Height: 71 in * Age: 85 yrs Ethnicity: CA Weight: 138 lb * Ordering Physician: Rashard Rodríguez * Performed By: Chantelle Bennett * * Reason For Study: A-FIB, NEW ONSET A-FIB * BSA: 1.8 m2 * -- Conclusions -- * Left ventricular systolic function is normal. * Trace pericardial effusion Procedure Details * A complete two-dimensional transthoracic echocardiogram was performed (2D, M-mode, Doppler and color flow Doppler). * The study was technically difficult. * There were technical limitations due to patient'sPoor acoustic windows secondary to severe lung disease. Left Ventricle * The left ventricle is normal in size. * There is mild asymmetric left ventricular hypertrophy. * septal thickening * Ejection Fraction = 65-70%. * Left ventricular systolic function is normal. * The left ventricular wall motion is normal. Right Ventricle * The right ventricle is not well visualized. * The right ventricular systolic function is normal. Atria * The left atrial size is normal. * Right atrial size is normal. Mitral Valve * The mitral valve is grossly normal. * Significant mitral regurgitation is absent. Tricuspid Valve * The tricuspid valve is not well visualized, but is grossly normal. * There is mild tricuspid regurgitation. * Right ventricular systolic pressure is normal. Aortic Valve * The aortic valve is not well visualized. * No hemodynamically significant valvular aortic stenosis. * Trace aortic regurgitation. Pulmonic Valve * The pulmonic valve is not well visualized. Pericardium/Pleural * Trace pericardial effusion Left Ventricular Diastolic Function * Indeterminate MMode 2D Measurements and Calculations IVSd 1.9 cm IVSs 2.4 cm LVIDd 4.0 cm LVIDs 2.6 cm LVPWd 1.3 cm LVPWs 2.2 cm IVS/LVPW 1.5 FS 34.0 % EDV(Teich) 69.7 ml ESV(Teich) 25.4 ml EF(Teich) 63.5 % EDV(cubed) 63.6 ml ESV(cubed) 18.3 ml EF(cubed) 71.2 % % IVS thick 25.2 % % LVPW thick 72.1 % LV mass(C)d 252.7 grams LV mass(C)dI 140.3 grams/m\S\2 LV mass(C)s 295.6 grams LV mass(C)sI 164.1 grams/m\S\2 CO(Teich) 4.9 l/min CI(Teich) 2.7 l/min/m\S\2 SV(Teich) 44.2 ml SI(Teich) 24.6 ml/m\S\2 CO(cubed) 5.0 l/min CI(cubed) 2.8 l/min/m\S\2 SV(cubed) 45.3 ml SI(cubed) 25.2 ml/m\S\2 ACS 0.78 cm LA dimension 2.9 cm LVOT diam 1.9 cm LVOT area 3.0 cm\S\2 LVAd ap4 18.3 cm\S\2 LVLd ap4 6.3 cm EDV(MOD-sp4) 45.8 ml LVAs ap4 9.7 cm\S\2 LVLs ap4 5.7 cm ESV(MOD-sp4) 14.0 ml EF(MOD-sp4) 69.4 % LVAd ap2 23.6 cm\S\2 LVLd ap2 6.9 cm EDV(MOD-sp2) 69.9 ml LVAs ap2 12.4 cm\S\2 LVLs ap2 6.3 cm ESV(MOD-sp2) 21.4 ml EF(MOD-sp2) 69.4 % CO(MOD-sp4) 3.5 l/min CI(MOD-sp4) 2.0 l/min/m\S\2 SV(MOD-sp4) 31.8 ml SI(MOD-sp4) 17.7 ml/m\S\2 CO(MOD-sp2) 5.4 l/min CI(MOD-sp2) 3.0 l/min/m\S\2 SV(MOD-sp2) 48.5 ml SI(MOD-sp2) 26.9 ml/m\S\2 Doppler Measurements and Calculations MV E max abi 86.8 cm/sec MV dec time 0.11 sec Ao V2 max 125.1 cm/sec Ao max PG 6.3 mmHg Ao max PG (full) 0.61 mmHg ADRIEL(V,A) 2.8 cm\S\2 ADRIEL(V,D) 2.8 cm\S\2 AI max abi 301.4 cm/sec AI max PG 36.4 mmHg AI dec slope 312.1 cm/sec\S\2 AI P1/2t 282.9 msec LV V1 max PG 5.6 mmHg LV V1 mean PG 2.3 mmHg LV V1 max 118.8 cm/sec LV V1 mean 67.3 cm/sec LV V1 VTI 18.0 cm SV(LVOT) 53.7 ml SI(LVOT) 29.8 ml/m\S\2 PA V2 max 85.9 cm/sec PA max PG 2.9 mmHg TR max abi 256.5 cm/sec
--- NOTE | 2016-06-21 10:56 | CARDIOLOGY CONSULTATION ---
DATE OF CONSULTATION: 06/21/2016 CHIEF COMPLAINT: Atrial fibrillation. HISTORY OF PRESENT ILLNESS: Mr. Manish Sylvester is an 85-year-old gentleman with no known history of significant cardiac disease. He was admitted to [facility] with symptoms of gastrointestinal hemorrhage. During the course of this hospitalization, the patient was noted to have a rapid heart rate and atrial fibrillation. When speaking with the patient today, he denies any sense of palpitations or rapid heartbeat. He is feeling weak primarily. He states that he has been feeling weak for approximately 1 year. His symptoms of weakness and generalized fatigue have worsened significantly in the days leading up to his recent admission. Normally, he is able to ambulate around his home with minimal symptoms. More recently, he has had difficulty even ambulating to the bathroom due to weakness. He states that on occasion he will have some mild dyspnea associated with activity. He denies symptoms of chest discomfort. He was told by a physician in the past 3 weeks that he may have a heart condition but could not provide more details regarding that evaluation or any subsequent evaluation. Once again, the patient has not experienced symptoms of palpitations as an outpatient. He is not aware of any racing or rapid heartbeats. He generally does not have symptoms of dizziness, lightheadedness, and has not recently had any syncopal episodes. PAST MEDICAL HISTORY: Significant for: 1. Renal cell carcinoma diagnosed in 2005, status post nephrectomy. The patient was noted to have metastatic disease involving the thoracic cavity and spine. He had hemothorax associated with this malady, is currently on outpatient chemotherapy for treatment. 2. Chronic renal insufficiency. 3. History of gastrointestinal hemorrhage due to duodenal ulcers. 4. Hypertension. 5. Anxiety. PAST SURGICAL HISTORY: Includes the aforementioned nephrectomy and a history of spinal surgery. OUTPATIENT MEDICATIONS: Included: 1. Alfuzosin. 2. Daily aspirin. 3. Atenolol. 4. Colace. 5. A variety of supplements. 7. Amlodipine. 8. Gabapentin. 9. Latanoprost. 10. Benicar. 11. Ondansetron. 12. Pantoprazole. 13. Paroxetine. 14. Sucralfate. MEDICAL ALLERGIES: 1. RASH WITH PENICILLIN. 2. NAPROXEN, POSSIBLY ASSOCIATED WITH GASTROINTESTINAL HEMORRHAGE. SOCIAL HISTORY: The patient is a lifelong nonsmoker. He denies significant alcohol use. His approximately 2 years ago. Currently lives alone. FAMILY HISTORY: No family history of premature coronary disease, the remainder being noncontributory. REVIEW OF SYSTEMS: Complete 10-system review of systems was performed. The pertinent positives are noted in the history of present illness. He has felt poorly for up to a year. He has been "sick" over that period of time with profound gastrointestinal symptoms on occasion. He denied any recent fevers or chills; however, he has not noticed any swelling in his lower extremities or development of any rash. PHYSICAL EXAMINATION: GENERAL: The patient did not appear to be in any acute distress. He is a pleasant individual who is alert and oriented. His mood and affect appear normal. Answered all questions appropriately. VITAL SIGNS: Include a blood pressure of 129/85, his pulse is 105. HEENT: Sclerae are anicteric. Pupils are equal, reactive to light and accommodation. Extraocular movements are intact. Palpation of submandibular region did not reveal any significant lymphadenopathy. The carotids are palpable bilaterally. I do not appreciate any bruits on auscultation. There is no evidence of jugular venous distention. The thyroid is not enlarged. LUNGS: Auscultation of both lung cho reveals them to be clear. There are no rales, wheezes or rhonchi. He has normal respiratory effort without use of accessory muscles. CARDIAC: Reveals him to be in an irregularly irregular rhythm. I did not appreciate any murmurs on examination. PMI did not appear to be displaced on palpation. ABDOMEN: Soft. EXTREMITIES: Palpation of both wrists reveals radial pulses that are equal in intensity. There is no evidence of cyanosis or clubbing. Evaluation of lower extremities did not reveal any significant peripheral edema. I did not appreciate any rashes on examination today. LABORATORY STUDIES: Obtained during this admission included a white cell count 5.8, hemoglobin of 8.5, platelet count of 169. Sodium is 146, potassium is 3.6, BUN is 44, creatinine is 1.5. TSH is 2.5. Cardiac biomarkers are less than detectable limit. 12-lead EKG was obtained which revealed atrial fibrillation and rapid ventricular response. There were some nonspecific ST- and T-wave changes. Echocardiogram was performed today and reviewed personally by me. This revealed preserved left ventricular systolic function without significant valvular disease. Pulmonary pressures appear to be normal. There is no significant chamber dilation. ASSESSMENT AND PLAN: 1. Atrial fibrillation. It is unclear whether this is the patient's first episode of atrial fibrillation given the absence of notable symptoms. It is very likely that he has had additional episodes that were asymptomatic. This is likely to be paroxysmal and may have been precipitated by his current illness including associated volume changes, and in the absence of hemodynamic embarrassment or symptoms, rate control as initiated seems most appropriate. The patient has been placed on diltiazem infusion and administered digoxin. He was on a beta kassy as an outpatient as well, which has been held during this admission. It would seem reasonable to continue the infusion and transition him to oral diltiazem based on his response. This could be substituted for some of his other antihypertensives such as amlodipine and possibly his beta kassy. It is very likely that the patient will convert back to normal at some point, will need to monitor his heart rate at that time, adjusting his medical regimen as necessary. One additional alternative would be use of amiodarone for rhythm control. This is generally not advised in the absence of symptoms; however, given the patient's age and additional comorbidities, this could be considered a reasonable treatment and would likely provide additional rate control if that becomes problematic. At this point, it seems premature to recommend antiarrhythmic therapy such as amiodarone. With respect to anticoagulation, appears to have a notable contraindication currently. Do not feel that reinitiation of daily aspirin is necessary, and in the absence of approval by gastroenterology service, initiation of more potent anticoagulants should be deferred to a later date at least. The option of left atrial appendage occlusion exists; however, this would still necessitate a brief period of anticoagulation with dual antiplatelet agents which still may be contraindicated given his history of gastrointestinal hemorrhage. At this point, I think a decision regarding anticoagulation can be deferred until his bleeding issues have resolved. With respect to the etiology of his atrial fibrillation, most likely age related. Thyroid studies are normal, and he has essentially structurally normal heart. I do not believe any additional diagnostic tests are warranted. We will continue to follow his daily progress and make additional recommendations as necessary. AIME
[2016-06-21] MEDS: DIGOXIN 0.25 MG TAB PO SCH ×2 (13:06→18:59)
[2016-06-21] MEDS: DILTIAZEM HCL 30 MG TAB PO SCH ×2 (14:05→20:43)
[2016-06-21 14:11] LABS: HEMATOCRIT 25.3 % (42-52)
--- NOTE | 2016-06-21 16:40 | Family Medicine Progress Note ---
Progress Note Date of Service Jun 21, 2016. Subjective Pt evaluation today including: conversation w/ patient, physical exam, lab review Pain: Denies PO Intake: Clear liquid diet Voiding: no voiding problems Patient was seen at the bedside. He was sleeping when I enter his room, he woke up upon calling his name. He denies any problem today. Continues to have diarrhea with dark stool. Denies chest pain, SOB, dizziness, heart palpitation, nausea, vomiting, abdominal pain or any other additional symptoms. Constitutional: + fatigue, + weakness, + weight loss, No fever Respiratory: No cough, No dyspnea on exertion, No shortness of breath, No sputum, No wheezing Cardiovascular: No chest pain, No edema Abdomen: + GI bleeding, + diarrhea, No constipation, No nausea, No pain, No vomiting Musculoskeletal: No muscle pain Male : No dysuria Skin: No rash Medications Current Inpatient Medications Medications (Trade) Dose Ordered Sig/Katherine Route Start Time Stop Time Status Last Admin Dose Admin Sodium Chloride (Nss 1000ml) 1,000 ml @ 125 mls/hr Q8H IV 06/19/16 01:53 07/19/16 01:52 06/21/16 01:53 125 MLS/HR Acetaminophen (Tylenol Tab) 650 mg Q4H PRN PO 06/19/16 02:00 07/19/16 01:59 Al Hydrox/Mg Hydrox/Simethicone (Maalox Max Susp) 15 ml Q4H PRN PO 06/19/16 02:00 07/19/16 01:59 Ondansetron HCl (Zofran Inj) 4 mg Q6H PRN IV 06/19/16 02:00 07/19/16 01:59 06/20/16 08:30 4 MG Amlodipine Besylate (Norvasc Tab) 2.5 mg QAM PO 06/19/16 09:00 07/19/16 08:59 Future Hold 06/20/16 08:31 2.5 MG Latanoprost (Xalatan Oph Soln) 1 drops QPM OP 06/19/16 21:00 07/19/16 20:59 06/20/16 21:05 1 DROPS Alfuzosin HCl (Uroxatral Tab) 10 mg QAM PO 06/19/16 09:00 07/19/16 08:59 06/21/16 08:09 10 MG Alprazolam (Xanax Tab) 0.25 mg Q8H PRN PO 06/19/16 03:00 07/19/16 02:59 Oxycodone/ Acetaminophen (Percocet 5-325mg Tab) 1 tab Q4H PRN PO 06/19/16 03:00 07/03/16 02:59 Hydralazine HCl 5 mg 5 mg Q6H PRN IV. 06/19/16 09:00 07/19/16 08:59 Pantoprazole Sodium/Syringe (Protonix Inj/ Syringe) 10 ml @ 5 mls/min DAILY@, IV 06/20/16 09:00 07/20/16 08:59 06/21/16 08:07 5 MLS/MIN Sucralfate (Carafate Susp) 1 gm BID PO 06/20/16 21:00 07/20/16 20:59 06/21/16 08:08 1 GM Megestrol Acetate (Megace Susp) 800 mg QAM PO 06/21/16 09:00 07/21/16 08:59 06/21/16 08:08 800 MG Clonidine HCl (Catapres Tab) 0.2 mg BID PO 06/20/16 21:00 07/20/16 20:59 Future Hold 06/20/16 21:06 0.2 MG Gabapentin (Neurontin Cap) 100 mg HS PO 06/20/16 21:00 07/20/16 20:59 06/20/16 21:06 100 MG Brimonidine Tartrate (Alphagan 0.2% Soln) 1 drops BID OPL 06/20/16 21:00 07/20/16 20:59 06/21/16 08:08 1 DROPS Digoxin 0.25 mg 0.25 mg Q6H PO 06/21/16 13:00 06/21/16 19:01 06/21/16 13:06 0.25 MG Diltiazem HCl/ Dextrose (Cardizem Inj/D5 100ml) 125 ml @ 0 mls/hr Q0M PRN IV 06/21/16 07:15 07/21/16 07:14 06/21/16 08:00 5 MLS/HR Diltiazem HCl (Cardizem Tab) 30 mg TID PO 06/21/16 14:00 07/21/16 13:59 06/21/16 14:05 30 MG Objective Vital Signs Date Time Temp Pulse Resp B/P Pulse Ox O2 Delivery O2 Flow Rate FiO2 06/21/16 15:25 36.7 76 18 127/70 97 Room Air 06/21/16 13:06 82 06/21/16 12:21 36.3 102 19 106/70 97 Room Air 06/21/16 12:00 Room Air 06/21/16 09:00 115 102/76 06/21/16 08:45 111 97/75 06/21/16 08:37 36.4 86 18 110/69 96 Room Air 06/21/16 08:30 106 110/69 06/21/16 08:15 111 104/78 06/21/16 08:07 123 06/21/16 08:00 Room Air 06/21/16 08:00 127 97/72 06/21/16 06:29 135 95/66 06/21/16 05:47 140 135/78 06/21/16 04:00 Room Air 06/21/16 03:58 36.7 70 20 129/85 96 Room Air 06/20/16 23:59 95 Room Air 06/20/16 23:43 36.6 70 16 112/78 96 Room Air 06/20/16 20:00 93 Room Air 06/20/16 18:54 36.7 81 16 141/91 97 Room Air Physical Exam General Appearance: WD/WN, no apparent distress, + cachetic, + thin Neck: supple, trachea midline Respiratory/Chest: chest non-tender, lungs clear, normal breath sounds, no respiratory distress Cardiovascular: regular rate, rhythm, no edema, no murmur Abdomen: normal bowel sounds, non tender, soft Extremities: non-tender, no pedal edema Neurologic/Psychiatric: alert, normal mood/affect, oriented x 3 Skin: normal color, warm/dry Laboratory Results Results Past 24 Hours Test 06/20/16 20:20 06/21/16 05:25 06/21/16 11:35 06/21/16 14:05 Range/Units Hemoglobin 8.4 8.5 8.2 14.0-18.0 g/dL Hematocrit 25.4 26.3 25.3 42-52 % White Blood Count 5.89 4.8-10.8 K/uL Red Blood Count 2.99 4.7-6.1 M/uL Mean Corpuscular Volume 88.0 80-100 fL Mean Corpuscular Hemoglobin 28.4 25-34 pg Mean Corpuscular Hemoglobin Concent 32.3 32-36 g/dl RDW Standard Deviation 55.2 36.4-46.3 fL RDW Coefficient of Variation 17.5 11.5-14.5 % Platelet Count 169 130-400 K/uL Mean Platelet Volume 9.1 7.4-10.4 fL Sodium Level 146 136-145 mmol/L Potassium Level 3.6 3.5-5.1 mmol/L Chloride Level 114 98-107 mmol/L Carbon Dioxide Level 23 21-32 mmol/L Anion Gap 9.0 3-11 mmol/L Blood Urea Nitrogen 44 7-18 mg/dl Creatinine 1.50 0.60-1.40 mg/dl Est Creatinine Clear Calc Drug Dose 32.2 ml/min Estimated GFR () 48.5 Estimated GFR (Non- 41.9 BUN/Creatinine Ratio 29.4 10-20 Random Glucose 82 70-99 mg/dl Calcium Level 7.4 8.5-10.1 mg/dl Phosphorus Level 2.9 2.5-4.9 mg/dl Magnesium Level 1.8 1.8-2.4 mg/dl Troponin I < 0.015 0.036 0-0.045 ng/ml Thyroid Stimulating Hormone (TSH) 2.570 0.300-4.500 uIu/ml Free Thyroxine 1.10 0.80-1.60 ng/dl Assessment and Plan This is a 85 y/o male with PMHx of duodenal ulcer and metastatic renal cell carcinoma presented to the with GI bleeding and diarrhea. Today around 5:00am patient had an onset of Afib and was given metoprolol, digoxin, and diltiazem drip. He converted into sinus rhythm this afternoon. 1. GI Bleed with hx of duodenal ulcer - Current Hgb is 8.2 - Continue to trend H&H - D/c Pantoprazole drip per GI recommendation - Start IV Protonix 40mg - IVF @ 125 MLS/HR - Start on liquid diet - EGD was done in [facility] on 04/30/2016 and showed 1) A hiatus hernia 2) Normal stomach, biopsy was taken 3) Ulcers found in the distal duodenal bulb, Epinephrine injection therapy was applied to control bleeding. Argon beam coagulation was applied to control bleeding - Colonoscopy was done in [facility] (07/06/2009) and showed 1) Moderately severe diverticulosis found in the sigmoid colon 2) Internal hemorrhoids - Consult GI (previously under Dr Caal @ [facility]) and awaiting for their recommendation and EGD - EGD (06/19): 1) Normal stomach 2) Normal gastric body and antrum (biopsied) 3) One non-bleeding duodenal ulcer with no stigmata of bleeding 4) Normal 2nd part of the duodenum and 3rd part of the duodenum ( biopsied) - GI was consulted (Dr. Barksdale) and recommended: Clear liquid diet, IV PPI BID, if bleeding occurs, obtained tagged red cell scan. Also if bleeding recurs and for diarrhea colonoscopy once patient is stable. - Patient will need colonoscopy, no plan as of now, will wait for GI recommendation 2. Onset of A. fib - Patient had A fib starting this morning around (5:00am). Could be 2/2 volume depletion and/or anemia in the sitting of chronic bloody diarrhea. - S/p 5mg of Metoprolol, Digoxin 0.5mg and 2 doses of 0.25mg q6h (total 3 doses) - S/p Diltiazem drip - Troponin was normal, TSH and free T4 were also normal - Cardiology was consulted and I spoke with Dr. Madrigal and he agreed with the rate controlled. - Patient converted into normal sinus rhythm in the afternoon - Patient was started on Diltiazem 30mg TID - Continue to monitor in Tele - Will continue to appreciate Cardiology recommendation 2. Diarrhea - Patient continues to have bloody diarrhea, etiology still unclear - EGD performed on 06/19 showed no bleeding duodenal ulcer - Possible colonoscopy tomorrow, will wait for GI recommendation - Currently on clear liquid diet - C. Diff is negative - GI was consulted and will continue to appreciate their recommendation 3. Worsening Anemia - Continue to trend Hgb - Transfused 1 unit of PRBC on 06/19 - Transfused second unit of blood (06/20) - Continue to monitor 4. Duodenal ulcers - D/c IV Protonix drip - Start IV Protonix 40mg BID - Resume home medication Sucralfate 1gm BID 5. History of renal cell carcinoma - Continue to hold Inlyta as has association with GI bleeding, perforation and fistula formation + may be cause of diarrhea and nausea - Consult Heme/Onc, awaiting for their recommendation about holding Inlyta - I spoke with Dr. Roque today (06/21) and briefly discussed the case with him. I informed him that we are currently holding Inlyta and he received 2 units of blood (non irradiated blood). He states that at this moment it is ok to hold Inlyta and wait for further recommendation by Dr. Stoner. - Will wait for Dr. Stoner recommendation 6. Anxiety - Continue PRN alprazolam - Continue clonidine 0.1mg BID 7. Hypertension - Currently BP elevated (suspect due to patient not taking usual meds) - Add hydralazine 10 mg Q6H IV PRN for sBP > 180, dBP > 90 - Continue usual medications Amlodipine 2.5mg qam and Clonidine 0.2 BID - Continue to hold carvedilol 12.5 mg BID (GI bleed and he notes one of his blood pressure medications is making him feel tired and which may be the carvedilol). 6. Glaucoma - Latanoprost 1 drop each eye daily 8. BPH - C/w Alfuzosin 10mg qam 11. DVT prophylaxis - SCDs and TEDs 12. Code Status - Full code (not sure might change later) Resident Physician Supervision Note: I was present with Dr. Sanchez during the history and exam. I discussed the case with the resident and agree with the findings and plan as documented in the note. Any exceptions or clarifications are listed here: 85-year-old male admitted in transfer from [facility] with acute GI bleed. He is hemodynamically stable status post transfusion 2 units of packed red blood cells. His EGD did not reveal a source of active bleeding though he continues to have dark, black stools. Unfortunately this morning, the patient had an onset of atrial fibrillation with rapid ventricular response. He was started on a Cardizem drip and fortunately he converted to normal sinus rhythm. Upon my examination today the patient in discussion with the patient's son, he was comfortable and had no complaints except for the continued loose stools. We 'll wait for the recommendation of gastroenterology. 2 to monitor hemogenic status and hemoglobin. Documented By: Wang Kirkpatrick
[2016-06-21] MEDS ORDERED: LAVAGE SOLUTION 4000ML PO SCH (18:30)
[2016-06-21 20:30] LABS: HEMATOCRIT 27.1 % (42-52)
[2016-06-21] MEDS: LATANOPROST 0.005% OP SOLN 2.5 ML BTL OP SCH (20:42)
[2016-06-21] MEDS: GABAPENTIN 100 MG CAP PO SCH (20:43)
[2016-06-21] MEDS: ALPRAZOLAM 0.25 MG TAB PO PRN (20:53)
[2016-06-21] MEDS ORDERED: LAVAGE SOLUTION 4000ML PO PRN (21:00)
[2016-06-22] VITALS (10 sets, daily range): BP systolic 113–163; BP diastolic 74–99; PULSE 76–102; TEMP 36.3–37; O2SAT 96–99
[2016-06-22] MEDS ORDERED: DILTIAZEM HCL 30 MG TAB PO STA (01:16)
[2016-06-22] MEDS: ONDANSETRON INJ 2 MG/ML 2 ML VIAL IV PRN ×2 (01:30→21:09)
[2016-06-22] MEDS: SODIUM CHLORIDE 0.9% 1000ML 1,000 ML IV SCH ×3 (01:33→16:36)
[2016-06-22 06:10] LABS: HEMATOCRIT 26.4 % (42-52); MEAN CELL VOLUME 87.7 fL (80-100); MEAN CORPUSCULAR HEMOGLOBIN 28.2 pg (25-34); MEAN CORPUSCULAR HGB CONC 32.2 g/dl (32-36); MEAN PLATELET VOLUME 8.8 fL (7.4-10.4); PLATELET COUNT 164 K/uL (130-400); RED BLOOD COUNT 3.01 M/uL (4.7-6.1)
[2016-06-22 06:47] LABS: BUN/CREATININE RATIO 26.7 (10-20); CALCIUM 7.6 mg/dl (8.5-10.1); CREATININE 1.3 mg/dl (0.60-1.40); POTASSIUM 3.3 mmol/L (3.5-5.1)
[2016-06-22] MEDS: PANTOprazole INJ 40 MG in SYRINGE 0 ML IV SCH ×2 (08:42→21:08)
--- NOTE | 2016-06-22 08:51 | GASTROENTEROLOGY PROGRESS NOTE ---
DATE: 06/21/2016 DATE: 06/21/2016. Brief progress note SUBJECTIVE: I spoke with the patient this evening. The patient with continued diarrhea and dark appearing stools. Hemoglobin is overall stable. Will plan for colonoscopy. The patient is agreeable. Will begin bowel prep this evening with anticipation for colonoscopy by Dr. Maldonado tomorrow (Saturday), n.p.o. after midnight except meds. MTDD
[2016-06-22] MEDS: MEGESTROL ACETATE 800 MG/20 ML UDP PO SCH (09:00)
--- NOTE | 2016-06-22 09:40 | Gastroenterology Progress Note ---
Progress Note Date of Service: Jun 22, 2016 Subjective Pt evaluation today including: conversation w/ patient, physical exam, chart review, lab review, review of studies, review of inpatient medication list CC F/u gi bleeding HPI Pt denies abd pain. States prep worked overall but not sure completely. Review of Systems Respiratory: No shortness of breath Cardiac: No chest pain Medications Current Inpatient Medications Medications (Trade) Dose Ordered Sig/Katherine Route Start Time Stop Time Status Last Admin Dose Admin Sodium Chloride (Nss 1000ml) 1,000 ml @ 125 mls/hr Q8H IV 06/19/16 01:53 07/19/16 01:52 06/22/16 01:33 125 MLS/HR Acetaminophen (Tylenol Tab) 650 mg Q4H PRN PO 06/19/16 02:00 07/19/16 01:59 Al Hydrox/Mg Hydrox/Simethicone (Maalox Max Susp) 15 ml Q4H PRN PO 06/19/16 02:00 07/19/16 01:59 Ondansetron HCl (Zofran Inj) 4 mg Q6H PRN IV 06/19/16 02:00 07/19/16 01:59 06/22/16 01:30 4 MG Amlodipine Besylate (Norvasc Tab) 2.5 mg QAM PO 06/19/16 09:00 07/19/16 08:59 Future Hold 06/20/16 08:31 2.5 MG Latanoprost (Xalatan Oph Soln) 1 drops QPM OP 06/19/16 21:00 07/19/16 20:59 06/21/16 20:42 1 DROPS Alfuzosin HCl (Uroxatral Tab) 10 mg QAM PO 06/19/16 09:00 07/19/16 08:59 06/21/16 08:09 10 MG Alprazolam (Xanax Tab) 0.25 mg Q8H PRN PO 06/19/16 03:00 07/19/16 02:59 06/21/16 20:53 0.25 MG Oxycodone/ Acetaminophen (Percocet 5-325mg Tab) 1 tab Q4H PRN PO 06/19/16 03:00 07/03/16 02:59 Hydralazine HCl 5 mg 5 mg Q6H PRN IV. 06/19/16 09:00 07/19/16 08:59 Pantoprazole Sodium/Syringe (Protonix Inj/ Syringe) 10 ml @ 5 mls/min DAILY@, IV 06/20/16 09:00 07/20/16 08:59 06/22/16 08:42 5 MLS/MIN Sucralfate (Carafate Susp) 1 gm BID PO 06/20/16 21:00 07/20/16 20:59 06/21/16 20:43 1 GM Megestrol Acetate (Megace Susp) 800 mg QAM PO 06/21/16 09:00 07/21/16 08:59 06/21/16 08:08 800 MG Clonidine HCl (Catapres Tab) 0.2 mg BID PO 06/20/16 21:00 07/20/16 20:59 Future Hold 06/20/16 21:06 0.2 MG Gabapentin (Neurontin Cap) 100 mg HS PO 06/20/16 21:00 07/20/16 20:59 06/21/16 20:43 100 MG Brimonidine Tartrate 1 drops 1 drops BID OPL 06/20/16 21:00 07/20/16 20:59 06/21/16 20:42 1 DROPS Diltiazem HCl/ Dextrose (Cardizem Inj/D5 100ml) 125 ml @ 0 mls/hr Q0M PRN IV 06/21/16 07:15 07/21/16 07:14 06/21/16 08:00 5 MLS/HR Diltiazem HCl (Cardizem Tab) 30 mg TID PO 06/21/16 14:00 07/21/16 13:59 06/21/16 20:43 30 MG Objective Vital Signs Date Time Temp Pulse Resp B/P Pulse Ox O2 Delivery O2 Flow Rate FiO2 06/22/16 09:09 36.3 80 18 167/95 97 Room Air 06/22/16 08:44 36.6 85 18 147/86 99 Room Air 06/22/16 07:26 36.6 85 18 147/86 99 Room Air 06/22/16 04:05 36.5 76 18 141/83 96 Room Air 06/22/16 04:00 Room Air 06/21/16 23:59 Room Air 06/21/16 23:50 36.4 90 18 148/87 98 06/21/16 20:00 Room Air 06/21/16 19:31 36.6 76 18 136/77 98 Room Air 06/21/16 18:59 77 06/21/16 16:00 Room Air 06/21/16 15:25 36.7 76 18 127/70 97 Room Air 06/21/16 13:06 82 06/21/16 12:21 36.3 102 19 106/70 97 Room Air 06/21/16 12:00 Room Air Physical Exam General Appearance: WD/WN, no apparent distress Cardiovascular: no murmur Abdomen: normal bowel sounds, non tender, soft, no organomegaly Neurologic/Psych: normal mood/affect, oriented x 3 Laboratory Results Last 24 Hours Test 06/21/16 11:35 06/21/16 14:05 06/21/16 20:16 06/22/16 05:20 Troponin I 0.036 ng/ml Hemoglobin 8.2 g/dL 8.8 g/dL 8.5 g/dL Hematocrit 25.3 % 27.1 % 26.4 % White Blood Count 6.20 K/uL Red Blood Count 3.01 M/uL Mean Corpuscular Volume 87.7 fL Mean Corpuscular Hemoglobin 28.2 pg Mean Corpuscular Hemoglobin Concent 32.2 g/dl RDW Standard Deviation 53.4 fL RDW Coefficient of Variation 17.2 % Platelet Count 164 K/uL Mean Platelet Volume 8.8 fL Sodium Level 146 mmol/L Potassium Level 3.3 mmol/L Chloride Level 115 mmol/L Carbon Dioxide Level 22 mmol/L Anion Gap 9.0 mmol/L Blood Urea Nitrogen 35 mg/dl Creatinine 1.30 mg/dl Est Creatinine Clear Calc Drug Dose 38.5 ml/min Estimated GFR () 57.7 Estimated GFR (Non- 49.8 BUN/Creatinine Ratio 26.7 Random Glucose 82 mg/dl Calcium Level 7.6 mg/dl Assessment and Plan recurrent GI bleeding--EGD this admit with non bleeding DU. Colonoscopy today. Procedure and risks explained to patient which include but not limited to medication reaction, bleeding, perforation, aspiration and missed lesions DU--continue PPI. Diarrhea--will do random biopsies at time of colo unless pathology seen to explain diarrhea. Acute blood loss anemia--Hgb stable.
--- NOTE | 2016-06-22 09:47 | ONCOLOGY CONSULTATION ---
DATE OF CONSULTATION: 06/22/2016 CONSULTATION REQUESTED BY: Dr. Rodríguez. REASON FOR CONSULTATION: GI bleeding, renal cancer, on Inlyta, question cause. HISTORY OF PRESENT ILLNESS: Mr. Sylvester is an 85-year-old gentleman whom I have followed since 07/2010. He was diagnosed with a clear cell carcinoma of the right kidney in 07/2005, undergoing nephrectomy. In 2010, his urologist ordered a CT scan of his abdomen and pelvis for followup of his kidney cancer. That scan showed a destructive lesion at L3. I subsequently ordered a PET CT scan which showed a left upper lobe mass in addition to the L3 lesion. He underwent biopsy of the left upper lobe mass which was consistent with metastatic renal cell cancer. He was referred to Dr. Grigsby at [facility] for possible kyphoplasty and was referred to radiation oncology at [facility] for palliative radiation to L3 in case kyphoplasty was not an option. He subsequently was transferred to the [facility] in [place] where he underwent surgery to stabilize the destructive process at L3. Pathology confirmed metastatic renal cell carcinoma. He then underwent palliative radiation therapy to L3. In 03/2011, I saw him in followup and he was essentially pain free. A followup PET CT scan in 09/2011 showed a stable appearance of the pleural based nodule in the left lung. A new small lymph node in the right pretracheal region was noted. I continued to follow him expectantly without systemic therapy. In 01/2012, he was seen as an outpatient. Prior to that visit, he was admitted to [facility] in [place] after undergoing a spontaneous left hemothorax. He underwent surgery with removal and fulguration of a solitary pleural-based metastasis. At that time, his hemoglobin was 8.4. I transfused him with 2 units of packed red blood cells. I then started him on Sutent 50 mg daily for 4 weeks in a row, followed by a 2-week break, and systemic therapy for his metastatic kidney cancer. When seen in 04/2012, he was feeling generally well. A followup PET CT scan in 06/2012 showed continued improvement with no sign of worsening disease. He continued on Sutent. A followup PET CT scan in 05/2013 showed no evidence of cancer. He continued on his Sutent. He continued to do well. Due to slight worsening of disease on followup scanning, I switched his therapy from Sutent to Inlyta in 03/2014. He tolerated the Inlyta well. A followup PET CT scan in 09/2014 showed no evidence of disease. Another PET CT scan in 01/2015 showed no evidence of disease and I held his Inlyta at that time. A subsequent PET CT scan in 07/2015 showed increasing activity in a paratracheal lymph node and progressive destruction in left 4th rib as well as a new right hilar lymph node. He went back on his Inlyta at that time. A followup PET CT scan in 02/2016 showed improvement in his disease. He continued on the Inlyta. Unfortunately, in February, his renal function was noted to be worse. He was referred to nephrology. In 05/2016, I added Procrit for treatment of his anemia which was assumed to be due to his worsening renal function. At that time, his hemoglobin was 8.8. After starting Procrit, his hemoglobin improved to 9.8 on 06/13/2016. He is now admitted to [facility] with melena and diarrhea. Hemoglobin on admission was 8.1. His estimated GFR on admission was 49.8 mL/minute. No iron studies have been obtained during this admission. He was transfused with 2 units of packed red blood cells. I should note that in April a large duodenal ulcer was diagnosed at [facility] and he received 3-4 units of blood at that time. He was seen by gastroenterology after admission to [facility] and underwent a repeat EGD. The EGD done during his admission showed a normal stomach, 1 nonbleeding duodenal ulcer, and an otherwise normal second and third part of the duodenum. He is receiving treatment for his GI bleeding, presumably from his ulcer. A colonoscopy is being planned at some point once he is medically stable. Also, during the admission, he developed atrial fibrillation, requiring medical treatment. The Inlyta is on hold at this time due to concern that it may have contributed to his ulcer formation and GI bleeding. At the present time, I have not seen the patient yet in followup. I do not have any other recommendations regarding his current medical management. His hemoglobin on 06/22/2016 is 8.5. I would consider transfusing him with another 2 units of packed red blood cells at this time. I will check iron studies. I will continue to follow along while he remains hospitalized. Further recommendations are to follow. [facility]
[2016-06-22 09:56] LABS: FERRITIN 99.7 ng/ml (8.0-388.0)
[2016-06-22] MEDS ORDERED: LIDOCAINE HCL 2% 2 ML VIAL (20MG/ML) ONE (10:27)
[2016-06-22] MEDS ORDERED: PROPOFOL IV EMULSION 10 MG/ML 20 ML VIAL IV ONE (10:27)
--- NOTE | 2016-06-22 10:35 | Anesthesiology Progress Note ---
Anesthesia Post Op Note Date & Time Jun 22, 2016 at 10:35 Vital Signs Pain Intensity: 0.0 Vital Signs Past 12 Hours Date Time Temp Pulse Resp B/P Pulse Ox O2 Delivery O2 Flow Rate FiO2 06/22/16 10:28 75 20 165/94 93 Room Air 06/22/16 10:17 81 20 145/83 99 Room Air 06/22/16 09:09 36.3 80 18 167/95 97 Room Air 06/22/16 08:44 36.6 85 18 147/86 99 Room Air 06/22/16 07:26 36.6 85 18 147/86 99 Room Air 06/22/16 04:05 36.5 76 18 141/83 96 Room Air 06/22/16 04:00 Room Air 06/21/16 23:59 Room Air 06/21/16 23:50 36.4 90 18 148/87 98 Notes Mental Status: alert / awake / arousable, participated in evaluation Pt Amnestic to Procedure: Yes Nausea / Vomiting: adequately controlled Pain: adequately controlled Airway Patency, RR, SpO2: stable & adequate BP & HR: stable & adequate Hydration State: stable & adequate Anesthetic Complications: no major complications apparent
[2016-06-22] MEDS: DILTIAZEM HCL 30 MG TAB PO SCH ×3 (12:39→21:07)
[2016-06-22] MEDS: BRIMONIDINE TARTRATE 0.2% 5ML OPL SCH ×2 (12:44→21:14)
[2016-06-22] MEDS: SUCRALFATE 1 GM/10 ML UDC PO SCH ×2 (12:44→21:07)
[2016-06-22] MEDS: ALFUZosin TAB 10 MG TAB PO SCH (12:45)
[2016-06-22] MEDS ORDERED: NURSING VERBAL MED ORDER ONE (13:15)
[2016-06-22] MEDS ORDERED: POTASSIUM CHLORIDE 20 MEQ TABCR PO ONE ×4 (13:30→17:00)
--- NOTE | 2016-06-22 15:35 | Family Medicine Progress Note ---
Progress Note Date of Service Jun 22, 2016. Subjective Pt evaluation today including: conversation w/ patient, physical exam, chart review, lab review Pain: Denies Voiding: no voiding problems Patient was seen at the bedside. He states that he continues to have diarrhea with dark black stool. Denies headache, dizziness, nausea, vomiting, abdominal pain, SOB, chest pain or any other problems. Patient was NPO overnight for colonoscopy today. Patient had multiple of episodes of Afib today with heart rate ranging from 140- 150. BP was elevated also. Patient was asymptomatic. Constitutional: + chills, + fatigue, + weight loss, No fever Respiratory: No cough, No dyspnea at rest, No dyspnea on exertion, No shortness of breath, No sputum, No wheezing Cardiovascular: No chest pain, No edema Abdomen: + GI bleeding, + diarrhea, No constipation, No nausea, No pain, No vomiting Musculoskeletal: No muscle pain Skin: No rash Medications Current Inpatient Medications Medications (Trade) Dose Ordered Sig/Katherine Route Start Time Stop Time Status Last Admin Dose Admin Sodium Chloride (Nss 1000ml) 1,000 ml @ 125 mls/hr Q8H IV 06/19/16 01:53 07/19/16 01:52 06/22/16 12:46 125 MLS/HR Acetaminophen (Tylenol Tab) 650 mg Q4H PRN PO 06/19/16 02:00 07/19/16 01:59 Al Hydrox/Mg Hydrox/Simethicone (Maalox Max Susp) 15 ml Q4H PRN PO 06/19/16 02:00 07/19/16 01:59 Ondansetron HCl (Zofran Inj) 4 mg Q6H PRN IV 06/19/16 02:00 07/19/16 01:59 06/22/16 01:30 4 MG Amlodipine Besylate (Norvasc Tab) 2.5 mg QAM PO 06/19/16 09:00 07/19/16 08:59 Future Hold 06/20/16 08:31 2.5 MG Latanoprost (Xalatan Oph Soln) 1 drops QPM OP 06/19/16 21:00 07/19/16 20:59 06/21/16 20:42 1 DROPS Alfuzosin HCl (Uroxatral Tab) 10 mg QAM PO 06/19/16 09:00 07/19/16 08:59 06/22/16 12:45 10 MG Alprazolam (Xanax Tab) 0.25 mg Q8H PRN PO 06/19/16 03:00 07/19/16 02:59 06/21/16 20:53 0.25 MG Oxycodone/ Acetaminophen (Percocet 5-325mg Tab) 1 tab Q4H PRN PO 06/19/16 03:00 07/03/16 02:59 Hydralazine HCl 5 mg 5 mg Q6H PRN IV. 06/19/16 09:00 07/19/16 08:59 Pantoprazole Sodium/Syringe (Protonix Inj/ Syringe) 10 ml @ 5 mls/min DAILY@ IV 06/20/16 09:00 07/20/16 08:59 06/22/16 08:42 5 MLS/MIN Sucralfate (Carafate Susp) 1 gm BID PO 06/20/16 21:00 07/20/16 20:59 06/22/16 12:44 1 GM Megestrol Acetate (Megace Susp) 800 mg QAM PO 06/21/16 09:00 07/21/16 08:59 06/22/16 09:00 800 MG Clonidine HCl (Catapres Tab) 0.2 mg BID PO 06/20/16 21:00 07/20/16 20:59 Future hold 06/20/16 21:06 0.2 MG Gabapentin (Neurontin Cap) 100 mg HS PO 06/20/16 21:00 07/20/16 20:59 06/21/16 20:43 100 MG Brimonidine Tartrate 1 drops 1 drops BID OPL 06/20/16 21:00 07/20/16 20:59 06/22/16 12:44 1 DROPS Diltiazem HCl/ Dextrose (Cardizem Inj/D5 100ml) 125 ml @ 0 mls/hr Q0M PRN IV 06/21/16 07:15 07/21/16 07:14 06/21/16 08:00 5 MLS/HR Diltiazem HCl (Cardizem Tab) 30 mg TID PO 06/21/16 14:00 07/21/16 13:59 06/22/16 12:39 30 MG Potassium Chloride (Klor-Con Tab) 20 meq 1700 ONCE PO 06/22/16 17:00 06/22/16 17:01 Objective Vital Signs Date Time Temp Pulse Resp B/P Pulse Ox O2 Delivery O2 Flow Rate FiO2 06/22/16 12:49 Room Air 06/22/16 11:51 36.3 87 16 163/93 98 Room Air 06/22/16 10:43 75 20 180/91 97 Room Air 06/22/16 10:28 75 20 165/94 93 Room Air 06/22/16 10:17 81 20 145/83 99 Room Air 06/22/16 09:09 36.3 80 18 167/95 97 Room Air 06/22/16 08:44 36.6 85 18 147/86 99 Room Air 06/22/16 08:00 Room Air 06/22/16 07:26 36.6 85 18 147/86 99 Room Air 06/22/16 04:05 36.5 76 18 141/83 96 Room Air 06/22/16 04:00 Room Air 06/21/16 23:59 Room Air 06/21/16 23:50 36.4 90 18 148/87 98 06/21/16 20:00 Room Air 06/21/16 19:31 36.6 76 18 136/77 98 Room Air 06/21/16 18:59 77 06/21/16 16:00 Room Air Physical Exam General Appearance: WD/WN, no apparent distress, + cachetic, + thin Neck: supple, trachea midline Respiratory/Chest: chest non-tender, lungs clear, normal breath sounds, no respiratory distress Cardiovascular: no edema, no murmur, + irregularly irregular Abdomen: normal bowel sounds, non tender, soft Extremities: non-tender, no pedal edema Neurologic/Psychiatric: alert, normal mood/affect, oriented x 3 Skin: normal color, warm/dry Laboratory Results Results Past 24 Hours Test 06/21/16 20:16 06/22/16 05:20 Range/Units Hemoglobin 8.8 8.5 14.0-18.0 g/dL Hematocrit 27.1 26.4 42-52 % White Blood Count 6.20 4.8-10.8 K/uL Red Blood Count 3.01 4.7-6.1 M/uL Mean Corpuscular Volume 87.7 80-100 fL Mean Corpuscular Hemoglobin 28.2 25-34 pg Mean Corpuscular Hemoglobin Concent 32.2 32-36 g/dl RDW Standard Deviation 53.4 36.4-46.3 fL RDW Coefficient of Variation 17.2 11.5-14.5 % Platelet Count 164 130-400 K/uL Mean Platelet Volume 8.8 7.4-10.4 fL Sodium Level 146 136-145 mmol/L Potassium Level 3.3 3.5-5.1 mmol/L Chloride Level 115 98-107 mmol/L Carbon Dioxide Level 22 21-32 mmol/L Anion Gap 9.0 3-11 mmol/L Blood Urea Nitrogen 35 7-18 mg/dl Creatinine 1.30 0.60-1.40 mg/dl Est Creatinine Clear Calc Drug Dose 38.5 ml/min Estimated GFR () 57.7 Estimated GFR (Non- 49.8 BUN/Creatinine Ratio 26.7 10-20 Random Glucose 82 70-99 mg/dl Calcium Level 7.6 8.5-10.1 mg/dl Iron Level 22 35-175 mcg/dl Total Iron Binding Capacity 125 250-450 mcg/dl Ferritin 99.7 8.0-388.0 ng/ml Assessment and Plan This is a 85 y/o male with PMHx of duodenal ulcer and metastatic renal cell carcinoma presented to the with GI bleeding and diarrhea. Patient had multiple episodes of A fib today with heart rate in 140s and 150s. He remains asymptomatic. 1. GI Bleed with hx of duodenal ulcer - Current Hgb is 8.2 - Continue to trend H&H - D/c Pantoprazole drip per GI recommendation - Start IV Protonix 40mg - IVF @ 125 MLS/HR - Start on liquid diet - EGD was done in [facility] on 04/30/2016 and showed 1) A hiatus hernia 2) Normal stomach, biopsy was taken 3) Ulcers found in the distal duodenal bulb, Epinephrine injection therapy was applied to control bleeding. Argon beam coagulation was applied to control bleeding - Colonoscopy was done in [facility] (07/06/2009) and showed 1) Moderately severe diverticulosis found in the sigmoid colon 2) Internal hemorrhoids - Consult GI (previously under Dr Caal @ [facility]) and awaiting for their recommendation and EGD - EGD (06/19): 1) Normal stomach 2) Normal gastric body and antrum (biopsied) 3) One non-bleeding duodenal ulcer with no stigmata of bleeding 4) Normal 2nd part of the duodenum and 3rd part of the duodenum ( biopsied) - GI was consulted (Dr. Barksdale) and recommended: Clear liquid diet, IV PPI BID, if bleeding occurs, obtained tagged red cell scan. Also if bleeding recurs and for diarrhea colonoscopy once patient is stable. - Patient had colonoscopy (06/22) by Dr. Maldonado today and will wait for the result, treatment will be based on the findings 2. Onset of A. fib - Patient had multiple episodes of Afib today with heart heart ranging between 140-150. - Patient had episode of A fib on 06/21 around 5:00am. Converter to sinus rhythm later in the afternoon. Could be 2/2 volume depletion and/or anemia in the sitting of chronic bloody diarrhea. - S/p 5mg of Metoprolol, Digoxin 0.5mg and 2 doses of 0.25mg q6h (total 3 doses) - S/p Diltiazem drip - Troponin was normal, TSH and free T4 were also normal - Cardiology was consulted and I spoke with Dr. Madrigal and he agreed with the rate controlled. - Patient converted into normal sinus rhythm in the afternoon - Patient was started on Diltiazem 30mg TID - Continue to monitor in Tele - Echo was performed on 06/21 and showed mild asymmetric left ventricular hypertrophy with EF 65-70%. No valvular abnormalities and other significant findings was noted. - Spoke with Dr. Madrigal and he recommended at this point to continue with Diltiazem and monitor. - Given 20meq KCL in the afternoon and 20 meq at dinner. - Continue to monitor in Tele 4. Diarrhea - Patient continues to have bloody diarrhea, etiology still unclear - EGD performed on 06/19 showed no bleeding duodenal ulcer - Possible colonoscopy tomorrow, will wait for GI recommendation - Currently on clear liquid diet - C. Diff is negative - Coloscopy was performed today, result is pending - GI was consulted and will continue to appreciate their recommendation 5. Worsening Anemia - Transfused 1 unit of PRBC today per ID recommendation - Patient received total 3 units of blood - F/u H&H after transfusion today - Continue to monitor 6. Electrolytes abnormalities - Patient had low potassium, given 40 meq KCl - Current Mg level is 1.8, f/u tomorrow Mg and consider supplement if drops more. - BMP tomorrow am 7. Duodenal ulcers - D/c IV Protonix drip - C/w Protonix 40mg BID - Resume home medication Sucralfate 1gm BID 8. History of renal cell carcinoma - Continue to hold Inlyta as has association with GI bleeding, perforation and fistula formation + may be cause of diarrhea and nausea - Consult Heme/Onc, awaiting for their recommendation about holding Inlyta - I spoke with Dr. Roque on 06/21 and briefly discussed the case with him. I informed him that we are currently holding Inlyta and he received 2 units of blood (non irradiated blood). He states that at this moment it is ok to hold Inlyta and wait for further recommendation by Dr. Stoner. - Dr. Stoner saw the patient today and recommended to transfuse 2 unit of blood. He will continue to follow and will appreciate his recommendations. - At this time we will transfuse 1 unit of PRBC and f/u H&H. 9. Anxiety - Continue PRN alprazolam 10. Hypertension - BP is elevated - C/w Diltiazem 30mg TID and adjust accordingly - Resume Clonidine 0.2mg - C/w hydralazine 10 mg Q6H IV PRN for sBP > 180, dBP > 90 - hold Amlodipine 2.5mg since he is already in Diltiazem 30mg TID - Continue to hold carvedilol 12.5 mg BID (GI bleed and he notes one of his blood pressure medications is making him feel tired and which may be the carvedilol). 11. Glaucoma - Latanoprost 1 drop each eye daily 12. BPH - C/w Alfuzosin 10mg qam 13. DVT prophylaxis - SCDs and TEDs - Chemical prophylaxis is contraindicated given GI bleeding 14. Code Status - Changed to DNR - Had long conversation with the patient and his son and they decided they don't want any intervention if anything happens. Resident Physician Supervision Note: I was present with Dr. Sanchez during the history and exam. I discussed the case with the resident and agree with the findings and plan as documented in the note. Any exceptions or clarifications are listed here: 85-year-old male with gastrointestinal bleed now status post EGD and colonoscopy. Coloscopy report is pending, although it sounds as if there is some degree of colitis. The patient has had recurrent atrial fibrillation, although he was asymptomatic. He had some ventricular ectopy on the monitor weight this morning with activity but this has seemed to lessen this afternoon. Upon exam he voices no complaints. He reported eating lunch without difficulty. Oncology consultation appreciated. They recommended initial blood transfusion. PLAN #1 transfuse - as suggested by oncology - additional unit of packed red blood cells and monitor hemoglobin. #2 restart the patient's home dose of clonidine. #3 we can titrate the oral Cardizem, using short acting formulation, and transitioning to a long acting upon discharge. We'll hold the patient's home amlodipine since he is now on the Cardizem. #4 continue IV Protonix #5 replete potassium and check magnesium #6 will keep on telemetry given his atrial dysrhythmias and occasional ventricular ectopy. Documented By: Wang Kirkpatrick
--- NOTE | 2016-06-22 18:47 | GASTROENTEROLOGY PROGRESS NOTE ---
DATE: 06/21/2016 GASTROINTESTINAL INPATIENT PROGRESS NOTE SUBJECTIVE: The patient doing well overall. The patient's hemoglobin is stable. Thyroid level is normal, free T4 1.1, TSH 2.57. Coagulations - INR is 1.1 on June 20. The patient with continued diarrhea and dark stools by his description. He denies any abdominal pain. Historically, he has had weight loss. There is no suspected further brisk upper GI bleeding from the duodenal ulcer identified yesterday. I suspect this is in the process feeling. REVIEW OF SYSTEMS: Otherwise noncontributory PHYSICAL EXAMINATION: VITAL SIGNS: Today - afebrile 36.7, blood pressure 127/70, room air 97%, respirations 18, heart rate 76. GENERAL: The patient is awake and alert, although slightly fatigued. Generally, there is an appearance of wasting. HEENT: His sclerae anicteric. LUNGS: Overall, clear to auscultation, although diminished breath sounds at bases. HEART: Normal S1, S2. ABDOMEN: Soft, flat, nontender, nondistended with good bowel sounds. EXTREMITIES: Without edema. IMPRESSION AND PLAN: The patient with diarrhea and dark stools. Upper endoscopy did not reveal an obvious upper gastrointestinal bleeding source. We will plan to perform a colonoscopy tomorrow with a bowel prep. The patient should be n.p.o. after midnight except meds. Follow hemoglobin serially. Continue proton pump inhibitor for peptic ulcer disease. The biopsies from the 06/19/2016 upper endoscopy during hospitalization shows no evidence for Helicobacter pylori infection, there is evidence of chronic gastritis in the antrum with moderate activity And the duodenal biopsies show no evidence for amyloid and otherwise normal duodenal mucosa.
--- NOTE | 2016-06-22 19:12 | CARDIOLOGY PROGRESS NOTE ---
DATE: 06/22/2016 CARDIOLOGY FOLLOWUP REPORT SUBJECTIVE: I was able to see Mr. Manish Sylvester this evening after he returned from his procedure. He claims to be feeling much better, his appetite has returned, he feels like he has much more energy, he was able to ambulate to the bathroom somewhat independently today. PHYSICAL EXAMINATION: GENERAL: He was alert and oriented. His mood and affect appeared normal. He answered all questions appropriately. VITAL SIGNS: Currently included blood pressure 132/77 with a pulse of 102. CARDIAC: Unremarkable. He had a regular rhythm. There were no murmurs. LUNGS: Clear to auscultation bilaterally. LABORATORY STUDIES: Today included a sodium of 146, potassium of 3.3, BUN was 26 and creatinine was 1.3. Hemoglobin most recently was 8.5, white count was 6.2, and platelet count was 164. DATA: Review of the patient's telemetry reveals generally sinus rhythm with occasional periods of atrial fibrillation. ASSESSMENT AND PLAN: 1. Atrial fibrillation. On generally speaking, the patient's rhythm for most of the day has been sinus rhythm and sinus tachycardia. He has very brief episodes of atrial arrhythmia. He did have some periods of atrial fibrillation earlier in the day with rapid ventricular rate. Overall, he is seemingly to be doing better. At this point, I think I will continue the oral diltiazem, switching to a long-acting preparation, perhaps tomorrow, according to his response and it does not appear to be overtly symptomatic with the atrial fibrillation. The issues surrounding anticoagulation have been addressed and are likely contraindicated at this time.
[2016-06-22] MEDS: LATANOPROST 0.005% OP SOLN 2.5 ML BTL OP SCH (21:05)
[2016-06-22] MEDS: CLONIDINE HCL 0.1 MG TAB PO SCH (21:06)
[2016-06-22] MEDS: GABAPENTIN 100 MG CAP PO SCH (21:07)
[2016-06-23] VITALS (10 sets, daily range): BP systolic 119–144; BP diastolic 75–87; PULSE 64–87; TEMP 36.3–36.7; O2SAT 97–99
--- NOTE | 2016-06-23 00:44 | GI REPORT ---
Procedure Date: 06/22/2016 9:44 AM Procedure: Colonoscopy Indications: Chronic diarrhea, Gastrointestinal bleeding Medicines: Monitored Anesthesia Care Complications: No immediate complications. Estimated Blood Loss: Estimated blood loss was minimal. Procedure: Pre-Anesthesia Assessment: - The risks and benefits of the procedure and the sedation options and risks were discussed with the patient. All questions were answered and informed consent was obtained. - Patient identification and proposed procedure were verified prior to the procedure by the physician, the nurse and the acid tank cleaner. The procedure was verified in the procedure room. After I obtained informed consent, the scope was passed under direct vision. Throughout the procedure, the patient's blood pressure, pulse, and oxygen saturations were monitored continuously. The scope was introduced through the anus and advanced to the terminal ileum, with identification of the appendiceal orifice and IC valve. The colonoscopy was technically difficult and complex due to significant looping and a tortuous colon. Successful completion of the procedure was aided by straightening and shortening the scope to obtain bowel loop reduction. The patient tolerated the procedure well. The quality of the bowel preparation was good. Procedure and risks explained to patient which include but not limited to med reaction, bleeding, perforation, aspiration and missed lesions. Judicious gas insufflation and gas removal done on the way out. The lumen always well visualized when advancing the scope. Washes and suctioning used as needed for good visuzlization of mucosa. Prep was good. Retroflexion in the rectum to look at the distal rectum and anal canal done. Findings: The terminal ileum appeared normal. Multiple small and large-mouthed diverticula were found in the left colon. The ascending colon appeared normal. Biopsies for histology were taken with a cold forceps from the ascending colon for evaluation of microscopic colitis. Estimated blood loss was minimal. Nonbleeding linear ulcerated mucosa were present at the hepatic flexure. Biopsies were taken with a cold forceps for histology. Estimated blood loss was minimal. The exam was otherwise without abnormality on direct and retroflexion views. No fresh nor old blood noted during examination except post biopsy Impression: - The examined portion of the ileum was normal. - Diverticulosis in the left colon. - The ascending colon is normal. Biopsied. - Mucosal ulceration. Biopsied. - The examination was otherwise normal on direct and retroflexion views. Recommendation: - [facility]. - Await path on colon ulceration. This ulceration can cause bleeding. NSAIDs and ASA can cause colon ulceration. Ischemia atypical in this location. Bo Maldonado M.D. Bo Maldonado MD 06/22/2016 10:17:46 AM This report has been signed electronically. Note Initiated On: 06/22/2016 9:44 AM I attest to the content of the Intraoperative Record and orders documented therein, exceptions below
[2016-06-23] MEDS: SODIUM CHLORIDE 0.9% 1000ML 1,000 ML IV SCH ×2 (01:00→09:28)
[2016-06-23 05:55] LABS: HEMATOCRIT 27.4 % (42-52); MEAN CELL VOLUME 88.4 fL (80-100); MEAN CORPUSCULAR HEMOGLOBIN 28.4 pg (25-34); MEAN CORPUSCULAR HGB CONC 32.1 g/dl (32-36); MEAN PLATELET VOLUME 8.9 fL (7.4-10.4); PLATELET COUNT 149 K/uL (130-400); WHITE BLOOD COUNT 5.76 K/uL (4.8-10.8)
[2016-06-23 06:07] LABS: INR 1.2 (0.9-1.1); PARTIAL THROMBOPLASTIN RATIO 1.2; PROTHROMBIN TIME (PATIENT) 12.8 SECONDS (9.0-12.0)
[2016-06-23 06:27] LABS: BUN/CREATININE RATIO 18.1 (10-20); CALCIUM 7.2 mg/dl (8.5-10.1); CREATININE 1.6 mg/dl (0.60-1.40); POTASSIUM 3.8 mmol/L (3.5-5.1)
[2016-06-23] MEDS: PANTOprazole INJ 40 MG in SYRINGE 0 ML IV SCH (09:28)
[2016-06-23] MEDS: BRIMONIDINE TARTRATE 0.2% 5ML OPL SCH ×2 (09:28→20:00)
[2016-06-23] MEDS: DILTIAZEM HCL 30 MG TAB PO SCH ×3 (09:28→20:57)
[2016-06-23] MEDS: SUCRALFATE 1 GM/10 ML UDC PO SCH ×2 (09:28→20:58)
[2016-06-23] MEDS: CLONIDINE HCL 0.1 MG TAB PO SCH ×2 (09:29→20:58)
[2016-06-23] MEDS: ALFUZosin TAB 10 MG TAB PO SCH (09:29)
[2016-06-23] MEDS: MEGESTROL ACETATE 800 MG/20 ML UDP PO SCH (09:29)
--- NOTE | 2016-06-23 14:33 | Family Medicine Progress Note ---
Progress Note Date of Service Jun 23, 2016. Subjective Pt evaluation today including: conversation w/ patient, physical exam, chart review, lab review, review of studies Pain: No pain reported this morning Patient is an 85 year old male with a past medical history of Renal Cell Carcinoma and Bleeding Duodenal Ulcer that presented to [facility] with GI Bleed. Patient states he is doing well today and has no complaints of abdominal pain or diarrhea. States that his appetite is much improved. Patient able to walk around the unit with nurse and heart rate was not excessively tachycardic. Denies fever, chills, shortness of breath, nausea and vomiting. Constitutional: No chills, No fever, No sweats Respiratory: No cough, No sputum, No wheezing Cardiovascular: No chest pain, No edema Abdomen: No diarrhea, No nausea, No pain, No vomiting Male : No dysuria Skin: No rash Medications Current Inpatient Medications Medications (Trade) Dose Ordered Sig/Katherine Route Start Time Stop Time Status Last Admin Dose Admin Sodium Chloride (Nss 1000ml) 1,000 ml @ 125 mls/hr Q8H IV 06/19/16 01:53 07/19/16 01:52 06/23/16 09:28 125 MLS/HR Acetaminophen (Tylenol Tab) 650 mg Q4H PRN PO 06/19/16 02:00 07/19/16 01:59 Al Hydrox/Mg Hydrox/Simethicone (Maalox Max Susp) 15 ml Q4H PRN PO 06/19/16 02:00 07/19/16 01:59 Ondansetron HCl (Zofran Inj) 4 mg Q6H PRN IV 06/19/16 02:00 07/19/16 01:59 06/22/16 21:09 4 MG Amlodipine Besylate (Norvasc Tab) 2.5 mg QAM PO 06/19/16 09:00 07/19/16 08:59 Future Hold 06/20/16 08:31 2.5 MG Latanoprost (Xalatan Oph Soln) 1 drops QPM OP 06/19/16 21:00 07/19/16 20:59 06/22/16 21:05 1 DROPS Alfuzosin HCl (Uroxatral Tab) 10 mg QAM PO 06/19/16 09:00 07/19/16 08:59 06/23/16 09:29 10 MG Alprazolam (Xanax Tab) 0.25 mg Q8H PRN PO 06/19/16 03:00 07/19/16 02:59 06/21/16 20:53 0.25 MG Oxycodone/ Acetaminophen (Percocet 5-325mg Tab) 1 tab Q4H PRN PO 06/19/16 03:00 07/03/16 02:59 Hydralazine HCl 5 mg 5 mg Q6H PRN IV. 06/19/16 09:00 07/19/16 08:59 Pantoprazole Sodium/Syringe (Protonix Inj/ Syringe) 10 ml @ 5 mls/min DAILY@ IV 06/20/16 09:00 07/20/16 08:59 06/23/16 09:28 5 MLS/MIN Sucralfate (Carafate Susp) 1 gm BID PO 06/20/16 21:00 07/20/16 20:59 06/23/16 09:28 1 GM Megestrol Acetate (Megace Susp) 800 mg QAM PO 06/21/16 09:00 07/21/16 08:59 06/23/16 09:29 800 MG Clonidine HCl (Catapres Tab) 0.2 mg BID PO 06/20/16 21:00 07/20/16 20:59 Future hold 06/23/16 09:29 0.2 MG Gabapentin (Neurontin Cap) 100 mg HS PO 06/20/16 21:00 07/20/16 20:59 06/22/16 21:07 100 MG Brimonidine Tartrate 1 drops 1 drops BID OPL 06/20/16 21:00 07/20/16 20:59 06/23/16 09:28 1 DROPS Diltiazem HCl/ Dextrose (Cardizem Inj/D5 100ml) 125 ml @ 0 mls/hr Q0M PRN IV 06/21/16 07:15 07/21/16 07:14 06/21/16 08:00 5 MLS/HR Diltiazem HCl (Cardizem Tab) 30 mg TID PO 06/21/16 14:00 07/21/16 13:59 06/23/16 09:28 30 MG Objective Vital Signs Date Time Temp Pulse Resp B/P Pulse Ox O2 Delivery O2 Flow Rate FiO2 06/23/16 10:57 36.3 71 20 119/75 98 Room Air 06/23/16 08:00 97 Room Air 06/23/16 07:24 36.7 75 20 141/79 97 Room Air 06/23/16 04:00 73 16 128/78 98 Room Air 06/23/16 04:00 Room Air 06/23/16 04:00 Room Air 06/23/16 00:00 97 Room Air 06/23/16 00:00 36.3 87 19 135/87 97 Room Air 06/22/16 20:29 36.7 95 18 138/86 97 Room Air 06/22/16 20:00 97 Room Air 06/22/16 17:25 37.0 102 19 132/77 06/22/16 16:34 36.7 98 18 140/99 97 06/22/16 16:28 36.6 91 20 113/74 97 Room Air 06/22/16 16:19 36.9 94 12 126/91 06/22/16 16:00 Room Air Physical Exam General Appearance: WD/WN, no apparent distress Neck: supple, no JVD, no carotid bruits Respiratory/Chest: chest non-tender, lungs clear, normal breath sounds Cardiovascular: regular rate, rhythm, no edema, no gallop Abdomen: normal bowel sounds, non tender, soft Neurologic/Psychiatric: alert, normal mood/affect, oriented x 3 Skin: no rash Laboratory Results Results Past 24 Hours Test 06/23/16 05:24 Range/Units White Blood Count 5.76 4.8-10.8 K/uL Red Blood Count 3.10 4.7-6.1 M/uL Hemoglobin 8.8 14.0-18.0 g/dL Hematocrit 27.4 42-52 % Mean Corpuscular Volume 88.4 80-100 fL Mean Corpuscular Hemoglobin 28.4 25-34 pg Mean Corpuscular Hemoglobin Concent 32.1 32-36 g/dl RDW Standard Deviation 53.3 36.4-46.3 fL RDW Coefficient of Variation 17.0 11.5-14.5 % Platelet Count 149 130-400 K/uL Mean Platelet Volume 8.9 7.4-10.4 fL Prothrombin Time 12.8 9.0-12.0 SECONDS Prothromb Time International Ratio 1.2 0.9-1.1 Activated Partial Thromboplast Time 30.9 21.0-31.0 SECONDS Partial Thromboplastin Ratio 1.2 Sodium Level 148 136-145 mmol/L Potassium Level 3.8 3.5-5.1 mmol/L Chloride Level 118 98-107 mmol/L Carbon Dioxide Level 20 21-32 mmol/L Anion Gap 10.0 3-11 mmol/L Blood Urea Nitrogen 29 7-18 mg/dl Creatinine 1.60 0.60-1.40 mg/dl Est Creatinine Clear Calc Drug Dose 31.3 ml/min Estimated GFR () 44.9 Estimated GFR (Non- 38.7 BUN/Creatinine Ratio 18.1 10-20 Random Glucose 96 70-99 mg/dl Calcium Level 7.2 8.5-10.1 mg/dl Assessment and Plan Patient is an 85 year old male with a history of Renal Cell Carcinoma with end stage metastasis that was transfered from [facility] on 06/20/16 with a GI bleed 1) GI Bleeding - Colonoscopy: Nonbleeding linear ulcerating mucosa at hepatic flexure as well as multiple diverticula in the left colon - Past history of duodenal ulcer - Patient has received 3 units of transfused blood - EGD: Small hiatal hernia and Duodenal ulcer spanning first and second part of duodenum - Hgb 8.8 today - Protonix 40mg IV Daily - Zofran 4mg q6h PRN - IV NS 125ml/hr - C. Diff toxin assay negative - In April a large duodenal ulcer was diagnosed at [facility] and he received 3-4 units of blood at that time - Holding Inlyta chemotherapy from fear it caused the duodenal ulcer 2) Renal Cell Carcinoma - Currently Holding Inlyta due to concern it may be cause of GI bleed - Heme/Onc on board - Total of 3 Units of Transfused PRBC 3) Atrial Fibrillation - Currently in NSR with HR in 70s-80s - Cardizem 30mg TID, will convert to extended release formulation - Initially treated with Digoxin and Metoprolol - Cardiology Following - Monitoring on tele 4) Hypokalemia - Resolved - K+ 3.8, continue to monitor 5) Hypomagnesemia - Resolved 6) Anemia - Hgb 8.8 - Received 3 units PRBC on current admission - Heme/Onc on board 7) Duodenal Ulcer - Continue PPI Prophylaxis with Protonix 40mg IV - Sucralfate 1gm BID 8) Hypertension - Clonidine 0.2mg BID - Hydralazine 5mg IV q6h PRN - Cardizem 30mg TID --> Holding Amlodipine - Holding Carvedilil 12.5mg BID home dose (some concern it is causing fatigue) 9) Home Medications - Anxiety - Xanax PRN - Glaucoma - Latanoprost 1 drop QAM - BPH - Uroxatal 10mg qAm 10) DVT - SCD - No AC due to GI bleed 11) Code Status - DNR Resident Physician Supervision Note: I was present with Dr. Mcneal during the history and exam. I discussed the case with the resident and agree with the findings and plan as documented in the note. Any exceptions or clarifications are listed here: GI Bleed Best guess is the nonbleeding linear area of ulcerating mucosa at hepatic flexure may have been culprit source, especially in light of no concerning findings on EGD. Will await GI follow up. HgB remains stabl S/P three units PRBCs. Change Protonix to PO. Renal Cell Carcinoma Currently Holding Inlyta due to concern it may be cause of GI bleed Oncology consult appreciated Atrial Fibrillation If does not recur with activity, could be moved to the floor. Continue Cardizem, would D/C on long acting formulation D/C home Norvasc. Documented By: Wang Kirkpatrick
--- NOTE | 2016-06-23 16:41 | Gastroenterology Progress Note ---
Progress Note Date of Service: Jun 23, 2016 Subjective Pt evaluation today including: conversation w/ patient, physical exam, chart review, lab review, review of studies, review of inpatient medication list CC f/u diarrhea, GI bleed, wt loss HPI Pt states appetite good today. No stools since colonoscopy. NO abd pain. Review of Systems Respiratory: No shortness of breath Cardiac: No chest pain Medications Current Inpatient Medications Medications (Trade) Dose Ordered Sig/Katherine Route Start Time Stop Time Status Last Admin Dose Admin Acetaminophen (Tylenol Tab) 650 mg Q4H PRN PO 06/19/16 02:00 07/19/16 01:59 Al Hydrox/Mg Hydrox/Simethicone (Maalox Max Susp) 15 ml Q4H PRN PO 06/19/16 02:00 07/19/16 01:59 Ondansetron HCl (Zofran Inj) 4 mg Q6H PRN IV 06/19/16 02:00 07/19/16 01:59 06/22/16 21:09 4 MG Latanoprost (Xalatan Oph Soln) 1 drops QPM OP 06/19/16 21:00 07/19/16 20:59 06/22/16 21:05 1 DROPS Alfuzosin HCl (Uroxatral Tab) 10 mg QAM PO 06/19/16 09:00 07/19/16 08:59 06/23/16 09:29 10 MG Alprazolam (Xanax Tab) 0.25 mg Q8H PRN PO 06/19/16 03:00 07/19/16 02:59 06/21/16 20:53 0.25 MG Oxycodone/ Acetaminophen (Percocet 5-325mg Tab) 1 tab Q4H PRN PO 06/19/16 03:00 07/03/16 02:59 Hydralazine HCl (HydrALAZINE INJ) 5 mg Q6H PRN IV. 06/19/16 09:00 07/19/16 08:59 Sucralfate (Carafate Susp) 1 gm BID PO 06/20/16 21:00 07/20/16 20:59 06/23/16 09:28 1 GM Megestrol Acetate (Megace Susp) 800 mg QAM PO 06/21/16 09:00 07/21/16 08:59 06/23/16 09:29 800 MG Clonidine HCl (Catapres Tab) 0.2 mg BID PO 06/20/16 21:00 07/20/16 20:59 Future hold 06/23/16 09:29 0.2 MG Gabapentin (Neurontin Cap) 100 mg HS PO 06/20/16 21:00 07/20/16 20:59 06/22/16 21:07 100 MG Brimonidine Tartrate (Alphagan 0.2% Soln) 1 drops BID OPL 06/20/16 21:00 07/20/16 20:59 06/23/16 09:28 1 DROPS Diltiazem HCl (Cardizem Tab) 30 mg TID PO 06/21/16 14:00 07/21/16 13:59 06/23/16 14:16 30 MG Pantoprazole Sodium (Protonix Tab) 40 mg BID PO 06/23/16 21:00 07/23/16 20:59 Objective Vital Signs Date Time Temp Pulse Resp B/P Pulse Ox O2 Delivery O2 Flow Rate FiO2 06/23/16 16:02 36.6 68 20 127/78 98 Room Air 06/23/16 12:00 98 Room Air 06/23/16 10:57 36.3 71 20 119/75 98 Room Air 06/23/16 08:00 97 Room Air 06/23/16 07:24 36.7 75 20 141/79 97 Room Air 06/23/16 04:00 73 16 128/78 98 Room Air 06/23/16 04:00 Room Air 06/23/16 04:00 Room Air 06/23/16 00:00 97 Room Air 06/23/16 00:00 36.3 87 19 135/87 97 Room Air 06/22/16 20:29 36.7 95 18 138/86 97 Room Air 06/22/16 20:00 97 Room Air 06/22/16 17:25 37.0 102 19 132/77 Physical Exam General Appearance: WD/WN, no apparent distress Respiratory/Chest: lungs clear, no respiratory distress Abdomen: normal bowel sounds, non tender, soft, no organomegaly Neurologic/Psych: normal mood/affect, oriented x 3 Laboratory Results Last 24 Hours Test 06/23/16 05:24 White Blood Count 5.76 K/uL Red Blood Count 3.10 M/uL Hemoglobin 8.8 g/dL Hematocrit 27.4 % Mean Corpuscular Volume 88.4 fL Mean Corpuscular Hemoglobin 28.4 pg Mean Corpuscular Hemoglobin Concent 32.1 g/dl RDW Standard Deviation 53.3 fL RDW Coefficient of Variation 17.0 % Platelet Count 149 K/uL Mean Platelet Volume 8.9 fL Prothrombin Time 12.8 SECONDS Prothromb Time International Ratio 1.2 Activated Partial Thromboplast Time 30.9 SECONDS Partial Thromboplastin Ratio 1.2 Sodium Level 148 mmol/L Potassium Level 3.8 mmol/L Chloride Level 118 mmol/L Carbon Dioxide Level 20 mmol/L Anion Gap 10.0 mmol/L Blood Urea Nitrogen 29 mg/dl Creatinine 1.60 mg/dl Est Creatinine Clear Calc Drug Dose 31.3 ml/min Estimated GFR () 44.9 Estimated GFR (Non- 38.7 BUN/Creatinine Ratio 18.1 Random Glucose 96 mg/dl Calcium Level 7.2 mg/dl Assessment and Plan recurrent GI bleeding--EGD this admit with non bleeding DU. Colonoscopy showed ulceration which could be source Colon ulceration---- in hepatic flexure differential medication (Inlyta, ASA), crohns, less likely ischemia given distribution. DU--continue PPI bid po Diarrhea--could be from the colon ulceration wt loss--no definite etiology on scopes unless he had poor appetite as etiology , given kidney cancer diagnosis check CT chest /abdomen/pelvics (no IV contrast since Cr borderline) to look for worsening cancer as explanation Acute blood loss anemia--Hgb stable.
[2016-06-23] MEDS: PANTOprazole SOD 40 MG TAB PO SCH (20:57)
[2016-06-23] MEDS: LATANOPROST 0.005% OP SOLN 2.5 ML BTL OP SCH (20:58)
[2016-06-23] MEDS: GABAPENTIN 100 MG CAP PO SCH (20:58)
[2016-06-24 06:56] LABS: HEMATOCRIT 27.6 % (42-52); MEAN CORPUSCULAR HEMOGLOBIN 29.4 pg (25-34); MEAN PLATELET VOLUME 8.9 fL (7.4-10.4); PLATELET COUNT 140 K/uL (130-400); WHITE BLOOD COUNT 6.01 K/uL (4.8-10.8)
[2016-06-24 07:13] VITALS: BP 130/79; PULSE 64; TEMP 36.7; O2SAT 97
[2016-06-24] MEDS: DILTIAZEM HCL 30 MG TAB PO SCH ×4 (08:00→20:55)
[2016-06-24] MEDS: PANTOprazole SOD 40 MG TAB PO SCH ×2 (08:00→20:55)
[2016-06-24 08:07] LABS: BUN/CREATININE RATIO 15.5 (10-20); CALCIUM 7.8 mg/dl (8.5-10.1); CREATININE 1.7 mg/dl (0.60-1.40); MAGNESIUM 1.7 mg/dl (1.8-2.4); POTASSIUM 3.9 mmol/L (3.5-5.1)
[2016-06-24] MEDS ORDERED: MAGNESIUM SULFATE 1GM / D5W 1 GM in PREMIXED IN D5W 100 ML IV ONE (09:00)
--- NOTE | 2016-06-24 10:27 | DIAGNOSTIC IMAGING REPORT ---
CHEST CT WITHOUT CONTRAST CT DOSE: 960.21 mGy.cm HISTORY: weight loss, hx renal cancer TECHNIQUE: Multiaxial CT images of the chest were performed without contrast. COMPARISON: None. FINDINGS: Fibrotic frame changer the pulmonary apices. Lungs are considered generally clear. There are small bilateral pleural effusions. Findings of mild basilar atelectasis. Atherosclerotic change and ectasia thoracic aorta. No significant or bulky hilar or mediastinal adenopathy. IMPRESSION: 1. Moderate emphysematous change. 2. 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 3. Small bilateral pleural effusions with mild bibasilar atelectatic change. Electronically signed by: Jian Giles M.D. 06/24/2016 10:26 AM Dictated Date/Time: 06/24/2016 10:24 AM
--- NOTE | 2016-06-24 10:28 | Family Medicine Progress Note ---
Progress Note Date of Service Jun 24, 2016. Subjective Pt evaluation today including: conversation w/ patient, physical exam, chart review, lab review, review of studies Pain: No pain reported this morning Voiding: no voiding problems Patient is doing well this morning and has no acute complaints other than his dislike of his liquid diet and request to be on a regular diet. He also mentions how his [id number] will be living with him when he does go home. The patient will be evaluated today for PT/OT and the patient has been in rehab before for knee surgery and is open to going to a SNF for rehab at discharge. Also he would like to get up and move around more today because he has been "sitting in bed" for the last 5 days and wants to move around. Constitutional: No chills, No fever, No sweats Respiratory: No cough, No shortness of breath, No wheezing Cardiovascular: No chest pain, No edema, No palpitations Abdomen: No nausea, No pain, No vomiting Male : No dysuria, No incontinence Medications Current Inpatient Medications Medications (Trade) Dose Ordered Sig/Katherine Route Start Time Stop Time Status Last Admin Dose Admin Acetaminophen (Tylenol Tab) 650 mg Q4H PRN PO 06/19/16 02:00 07/19/16 01:59 Al Hydrox/Mg Hydrox/Simethicone (Maalox Max Susp) 15 ml Q4H PRN PO 06/19/16 02:00 07/19/16 01:59 Ondansetron HCl (Zofran Inj) 4 mg Q6H PRN IV 06/19/16 02:00 07/19/16 01:59 06/22/16 21:09 4 MG Latanoprost (Xalatan Oph Soln) 1 drops QPM OP 06/19/16 21:00 07/19/16 20:59 06/23/16 20:58 1 DROPS Alfuzosin HCl (Uroxatral Tab) 10 mg QAM PO 06/19/16 09:00 07/19/16 08:59 06/23/16 09:29 10 MG Alprazolam (Xanax Tab) 0.25 mg Q8H PRN PO 06/19/16 03:00 07/19/16 02:59 06/21/16 20:53 0.25 MG Oxycodone/ Acetaminophen (Percocet 5-325mg Tab) 1 tab Q4H PRN PO 06/19/16 03:00 07/03/16 02:59 Hydralazine HCl (HydrALAZINE INJ) 5 mg Q6H PRN IV. 06/19/16 09:00 07/19/16 08:59 Sucralfate (Carafate Susp) 1 gm BID PO 06/20/16 21:00 07/20/16 20:59 06/23/16 20:58 1 GM Megestrol Acetate (Megace Susp) 800 mg QAM PO 06/21/16 09:00 07/21/16 08:59 06/23/16 09:29 800 MG Clonidine HCl (Catapres Tab) 0.2 mg BID PO 06/20/16 21:00 07/20/16 20:59 Future hold 06/23/16 20:58 0.2 MG Gabapentin (Neurontin Cap) 100 mg HS PO 06/20/16 21:00 07/20/16 20:59 06/23/16 20:58 100 MG Brimonidine Tartrate (Alphagan 0.2% Soln) 1 drops BID OPL 06/20/16 21:00 07/20/16 20:59 06/23/16 20:00 1 DROPS Diltiazem HCl (Cardizem Tab) 30 mg TID PO 06/21/16 14:00 07/21/16 13:59 06/23/16 20:57 30 MG Pantoprazole Sodium (Protonix Tab) 40 mg BID PO 06/23/16 20:00 07/23/16 20:59 06/23/16 20:57 40 MG Objective Vital Signs Date Time Temp Pulse Resp B/P Pulse Ox O2 Delivery O2 Flow Rate FiO2 06/24/16 09:43 Room Air 06/24/16 07:13 36.7 64 20 130/79 97 Room Air 06/24/16 00:00 Room Air 06/23/16 23:06 36.6 64 18 127/75 98 Room Air 06/23/16 20:00 Room Air 06/23/16 18:43 36.5 74 18 144/82 99 Room Air 06/23/16 18:22 36.6 68 20 98 06/23/16 16:02 36.6 68 20 127/78 98 Room Air 06/23/16 16:00 98 Room Air 06/23/16 12:00 98 Room Air 06/23/16 10:57 36.3 71 20 119/75 98 Room Air Physical Exam General Appearance: WD/WN, no apparent distress Neck: supple, no carotid bruits, trachea midline Respiratory/Chest: chest non-tender, lungs clear, normal breath sounds, no respiratory distress Cardiovascular: regular rate, rhythm, no edema, no gallop, no JVD, no murmur Abdomen: normal bowel sounds, non tender, soft, no organomegaly Extremities: non-tender, no calf tenderness Neurologic/Psychiatric: alert, normal mood/affect, oriented x 3 Laboratory Results Results Past 24 Hours Test 06/24/16 06:04 Range/Units White Blood Count 6.01 4.8-10.8 K/uL Red Blood Count 3.10 4.7-6.1 M/uL Hemoglobin 9.1 14.0-18.0 g/dL Hematocrit 27.6 42-52 % Mean Corpuscular Volume 89.0 80-100 fL Mean Corpuscular Hemoglobin 29.4 25-34 pg Mean Corpuscular Hemoglobin Concent 33.0 32-36 g/dl RDW Standard Deviation 55.8 36.4-46.3 fL RDW Coefficient of Variation 17.3 11.5-14.5 % Platelet Count 140 130-400 K/uL Mean Platelet Volume 8.9 7.4-10.4 fL Sodium Level 146 136-145 mmol/L Potassium Level 3.9 3.5-5.1 mmol/L Chloride Level 116 98-107 mmol/L Carbon Dioxide Level 22 21-32 mmol/L Anion Gap 8.0 3-11 mmol/L Blood Urea Nitrogen 26 7-18 mg/dl Creatinine 1.70 0.60-1.40 mg/dl Est Creatinine Clear Calc Drug Dose 29.6 ml/min Estimated GFR () 41.7 Estimated GFR (Non- 36.0 BUN/Creatinine Ratio 15.5 10-20 Random Glucose 96 70-99 mg/dl Calcium Level 7.8 8.5-10.1 mg/dl Magnesium Level 1.7 1.8-2.4 mg/dl Assessment and Plan Patient is an 85 year old male with a history of Renal Cell Carcinoma with end stage metastasis that was transferred from [facility] on 3/1/17 with a GI bleed 1) GI Bleeding - Colonoscopy: Nonbleeding linear ulcerating mucosa at hepatic flexure as well as multiple diverticula in the left colon - Past history of duodenal ulcer - Patient has received 3 units of transfused blood - EGD: Small hiatal hernia and Duodenal ulcer spanning first and second part of duodenum - Hgb 9.1 today, increased from 8.8 yesterday - Protonix 40mg PO BID Daily - Zofran 4mg q6h PRN - C. Diff toxin assay negative - In April a large duodenal ulcer was diagnosed at [facility] and he received 3-4 units of blood at that time - Holding Inlyta chemotherapy from fear it caused the duodenal ulcer - CT Abd/Pelvis this mornin. Mild/moderate edema in the soft tissues consistent with nonspecific anasarca. 2. Mild generalized nonobstructive ileus. 3. Prior right kidney resection with several left renal parapelvic cyst. 4. Mild perirectal wall thickening with endoscopic evaluation to exclude a lesion is recommended. 5. Bilateral pleural effusions with mild bibasilar atelectatic change. 2) Fluid Status - Patient has gained 4kg since admission, pleural effusions on CT - Cut fluids to IV NS 75ml/hr - Add 20mg Lasix now - Re-evaluate fluid status tomorrow 3) Renal Cell Carcinoma - Currently Holding Inlyta due to concern it may be cause of GI bleed - Heme/Onc on board - Total of 3 Units of Transfused PRBC 4) Atrial Fibrillation - Currently in NSR with HR in 70s-80s - Cardizem 30mg TID, will convert to extended release formulation - Initially treated with Digoxin and Metoprolol - Cardiology Following - Monitoring on tele 5) Hypokalemia - Resolved - K+ 3.9, continue to monitor 6) Hypomagnesemia - Mg 1.7 - Gave 1mg IV Magnesium today - Continue to monitor 7) Anemia - Stable - Hgb 9.1 - Received 3 units PRBC on current admission - Heme/Onc on board 8) Duodenal Ulcer - Continue PPI Prophylaxis with Protonix, Switched to Protonix 40mg PO BID yesterday - Sucralfate 1gm BID 9) Hypertension - Clonidine 0.2mg BID - Hydralazine 5mg IV q6h PRN - Cardizem 30mg TID --> Holding Amlodipine, Convert to ER formulation of Cardizem on d/c - Holding Carvedilol 12.5mg BID home dose (some concern it is causing fatigue) 10) Home Medications - Anxiety - Xanax PRN - Glaucoma - Latanoprost 1 drop QAM - BPH - Uroxatal 10mg qAm 11) DVT - SCD - No AC due to GI bleed 12) Code Status - DNR Resident Physician Supervision Note: I was present with Dr. Mcneal during the history and exam. I discussed the case with the resident and agree with the findings and plan as documented in the note. Any exceptions or clarifications are listed here: [None] GI Bleed Best guess is the nonbleeding linear area of ulcerating mucosa at hepatic flexure may have been culprit source, especially in light of no concerning findings on EGD. HgB remains stabl S/P three units PRBCs. Discharge on Protonix BID. Renal Cell Carcinoma Holding Inlyta due to concern it may be cause of GI bleed Oncology consult appreciated Atrial Fibrillation Remains in NSR Continue Cardizem, would D/C on long acting formulation D/C home Norvasc. Disposition Likely inpatient rehabilitation Documented By: Wang Kirkpatrick
--- NOTE | 2016-06-24 10:33 | DIAGNOSTIC IMAGING REPORT ---
ABDOMEN AND PELVIS CT WITH ORAL CONTRAST CT DOSE: HISTORY: weight loss, hx of renal cancer TECHNIQUE: Multiaxial CT images of the abdomen and pelvis were performed following the use of oral contrast. COMPARISON STUDY: None. FINDINGS: Small bilateral pleural effusions. Mild bibasilar atelectasis. Within limitations of an unenhanced scan liver is grossly unremarkable. Patient status post right fracture. There are several left renal parapelvic cysts. Considerable postoperative changes to the thoracolumbar spine. There is increased fecal load within the a sending colon. There may be a mild nonobstructive ileus. There is no evidence pneumatosis. Findings of mild chronic sigmoid diverticulosis. Mild thickening over the presacral fascial planes is present. Moderate perirectal wall thickening is present. Mild nonspecific edema and/or anasarca of the associated soft tissues. IMPRESSION: 1. Mild/moderate edema in the soft tissues consistent with nonspecific anasarca.] 2. Mild generalized nonobstructive ileus. 3. Prior right kidney resection with several left renal parapelvic cyst. 4. Mild perirectal wall thickening with endoscopic evaluation to exclude a lesion is recommended. 5. Bilateral pleural effusions with mild bibasilar atelectatic change. Electronically signed by: Jian Giles M.D. 06/24/2016 10:32 AM Dictated Date/Time: 06/24/2016 10:29 AM
[2016-06-24] MEDS: SUCRALFATE 1 GM/10 ML UDC PO SCH ×2 (12:00→20:54)
[2016-06-24] MEDS: BRIMONIDINE TARTRATE 0.2% 5ML OPL SCH ×2 (12:00→20:54)
[2016-06-24] MEDS: CLONIDINE HCL 0.1 MG TAB PO SCH (12:01)
[2016-06-24] MEDS: MEGESTROL ACETATE 800 MG/20 ML UDP PO SCH (12:02)
[2016-06-24] MEDS: ALFUZosin TAB 10 MG TAB PO SCH (12:02)
[2016-06-24 14:46] VITALS: BP 93/58; PULSE 78; TEMP 36.8; O2SAT 97
[2016-06-24] MEDS ORDERED: FUROSEMIDE 20 MG TAB PO ONE (15:00)
[2016-06-24 15:33] VITALS: BP 78/56
[2016-06-24] MEDS ORDERED: SODIUM CHLORIDE 0.9% 500ML 500 ML IV SCH (15:45)
--- NOTE | 2016-06-24 16:16 | Gastroenterology Progress Note ---
Progress Note Date of Service: Jun 24, 2016 Subjective Pt evaluation today including: conversation w/ patient, physical exam, chart review, lab review, review of studies, review of inpatient medication list CC F/u GI bleed, diarrhea HPI Pt has chest ct and A/P CT today showed copd, small bilateral pleural effusions, fecal load ascending colon, ? ileus, rectal thickening. Pt just had colonoscopy and no rectal thickening noted. No abd pain. Had oral contrast with CT which may explaine diarrhea this afternoon. NO blood in diarrheal stool per nursing brown. Review of Systems Respiratory: No shortness of breath Cardiac: No chest pain Medications Current Inpatient Medications Medications (Trade) Dose Ordered Sig/Katherine Route Start Time Stop Time Status Last Admin Dose Admin Acetaminophen (Tylenol Tab) 650 mg Q4H PRN PO 06/19/16 02:00 07/19/16 01:59 Al Hydrox/Mg Hydrox/Simethicone (Maalox Max Susp) 15 ml Q4H PRN PO 06/19/16 02:00 07/19/16 01:59 Ondansetron HCl (Zofran Inj) 4 mg Q6H PRN IV 06/19/16 02:00 07/19/16 01:59 06/22/16 21:09 4 MG Latanoprost (Xalatan Oph Soln) 1 drops QPM OP 06/19/16 21:00 07/19/16 20:59 06/23/16 20:58 1 DROPS Alfuzosin HCl (Uroxatral Tab) 10 mg QAM PO 06/19/16 09:00 07/19/16 08:59 06/24/16 12:02 10 MG Alprazolam (Xanax Tab) 0.25 mg Q8H PRN PO 06/19/16 03:00 07/19/16 02:59 06/21/16 20:53 0.25 MG Oxycodone/ Acetaminophen (Percocet 5-325mg Tab) 1 tab Q4H PRN PO 06/19/16 03:00 07/03/16 02:59 Hydralazine HCl (HydrALAZINE INJ) 5 mg Q6H PRN IV. 06/19/16 09:00 07/19/16 08:59 Sucralfate (Carafate Susp) 1 gm BID PO 06/20/16 21:00 07/20/16 20:59 06/24/16 12:00 1 GM Megestrol Acetate (Megace Susp) 800 mg QAM PO 06/21/16 09:00 07/21/16 08:59 06/24/16 12:02 800 MG Clonidine HCl (Catapres Tab) 0.2 mg BID PO 06/20/16 21:00 07/20/16 20:59 Future hold 06/24/16 12:01 0.2 MG Gabapentin (Neurontin Cap) 100 mg HS PO 06/20/16 21:00 07/20/16 20:59 06/23/16 20:58 100 MG Brimonidine Tartrate (Alphagan 0.2% Soln) 1 drops BID OPL 06/20/16 21:00 07/20/16 20:59 06/24/16 12:00 1 DROPS Diltiazem HCl (Cardizem Tab) 30 mg TID PO 06/21/16 14:00 07/21/16 13:59 06/24/16 12:04 30 MG Pantoprazole Sodium 40 mg 40 mg BID PO 06/23/16 20:00 07/23/16 20:59 06/24/16 08:00 40 MG Sodium Chloride (Nss 500ml) 500 ml @ 999 mls/hr Q31M IV 06/24/16 15:45 06/24/16 16:15 06/24/16 15:52 999 MLS/HR Objective Vital Signs Date Time Temp Pulse Resp B/P Pulse Ox O2 Delivery O2 Flow Rate FiO2 06/24/16 15:33 78/56 06/24/16 14:46 36.8 78 20 93/58 97 Room Air 06/24/16 09:43 Room Air 06/24/16 07:13 36.7 64 20 130/79 97 Room Air 06/24/16 00:00 Room Air 06/23/16 23:06 36.6 64 18 127/75 98 Room Air 06/23/16 20:00 Room Air 06/23/16 18:43 36.5 74 18 144/82 99 Room Air 06/23/16 18:22 36.6 68 20 98 Physical Exam General Appearance: WD/WN, no apparent distress Respiratory/Chest: normal breath sounds, no respiratory distress Cardiovascular: no murmur Abdomen: normal bowel sounds, non tender, soft, no organomegaly Laboratory Results Last 24 Hours Test 06/24/16 06:04 06/24/16 15:36 White Blood Count 6.01 K/uL Red Blood Count 3.10 M/uL Hemoglobin 9.1 g/dL Hematocrit 27.6 % Mean Corpuscular Volume 89.0 fL Mean Corpuscular Hemoglobin 29.4 pg Mean Corpuscular Hemoglobin Concent 33.0 g/dl RDW Standard Deviation 55.8 fL RDW Coefficient of Variation 17.3 % Platelet Count 140 K/uL Mean Platelet Volume 8.9 fL Sodium Level 146 mmol/L Potassium Level 3.9 mmol/L Chloride Level 116 mmol/L Carbon Dioxide Level 22 mmol/L Anion Gap 8.0 mmol/L Blood Urea Nitrogen 26 mg/dl Creatinine 1.70 mg/dl Est Creatinine Clear Calc Drug Dose 29.6 ml/min Estimated GFR () 41.7 Estimated GFR (Non- 36.0 BUN/Creatinine Ratio 15.5 Random Glucose 96 mg/dl Calcium Level 7.8 mg/dl Magnesium Level 1.7 mg/dl Assessment and Plan recurrent GI bleeding----resolved-----EGD this admit with non bleeding DU. Colonoscopy showed ulceration which could be source Colon ulceration---- in hepatic flexure differential medication (Inlyta, ASA), crohns, less likely ischemia given distribution. DU--continue PPI bid po Diarrhea--could be from the colon ulceration--diarrhea today could be from oral contrast also wt loss--no obvious cancer on chest CT/ A/P CT. Acute blood loss anemia--Hgb stable.
[2016-06-24 16:22] LABS: HEMATOCRIT 27.2 % (42-52); MEAN CELL VOLUME 91.3 fL (80-100); MEAN CORPUSCULAR HEMOGLOBIN 29.5 pg (25-34); MEAN PLATELET VOLUME 8.8 fL (7.4-10.4); PLATELET COUNT 134 K/uL (130-400); RED BLOOD COUNT 2.98 M/uL (4.7-6.1); WHITE BLOOD COUNT 7.43 K/uL (4.8-10.8)
[2016-06-24 16:36] VITALS: BP 106/64; PULSE 72
[2016-06-24 16:43] LABS: MEAN CORPUSCULAR HGB CONC 32.4 g/dl (32-36)
[2016-06-24 16:48] LABS: BUN/CREATININE RATIO 13.7 (10-20); CALCIUM 7.5 mg/dl (8.5-10.1); CREATININE 1.8 mg/dl (0.60-1.40)
[2016-06-24 16:59] LABS: ANISOCYTOSIS PRESENT; BASO % 0.1 %; BASO ABS # 0.01 K/uL (0-0.2); COMPLETE YES; EOS % 1.1 %; IG% 0.9 %; LYMPH % 8.6 %; LYMPH ABS # 0.64 K/uL (1.2-3.4); MONO % 5.9 %; NEUT % 83.4 %
[2016-06-24 20:53] VITALS: BP 109/69; PULSE 72; O2SAT 97
[2016-06-24] MEDS: GABAPENTIN 100 MG CAP PO SCH (20:56)
[2016-06-24] MEDS: LATANOPROST 0.005% OP SOLN 2.5 ML BTL OP SCH (20:57)
[2016-06-24 23:40] VITALS: BP 103/65; PULSE 74; TEMP 36.7; O2SAT 98
[2016-06-25 07:16] VITALS: BP 152/88; PULSE 67; TEMP 36.7; O2SAT 99
[2016-06-25] MEDS: MEGESTROL ACETATE 800 MG/20 ML UDP PO SCH (07:23)
[2016-06-25] MEDS: DILTIAZEM HCL 30 MG TAB PO SCH ×2 (07:23→13:34)
[2016-06-25] MEDS: ALFUZosin TAB 10 MG TAB PO SCH (07:23)
[2016-06-25] MEDS: PANTOprazole SOD 40 MG TAB PO SCH ×2 (07:24→21:38)
[2016-06-25] MEDS: BRIMONIDINE TARTRATE 0.2% 5ML OPL SCH ×2 (07:24→21:37)
[2016-06-25] MEDS: SUCRALFATE 1 GM/10 ML UDC PO SCH ×2 (07:24→21:38)
[2016-06-25 07:42] LABS: HEMATOCRIT 27.7 % (42-52); MEAN CELL VOLUME 89.4 fL (80-100); MEAN CORPUSCULAR HGB CONC 32.5 g/dl (32-36); MEAN PLATELET VOLUME 8.9 fL (7.4-10.4); PLATELET COUNT 159 K/uL (130-400); WHITE BLOOD COUNT 7.23 K/uL (4.8-10.8)
[2016-06-25] MEDS: CLONIDINE HCL 0.1 MG TAB PO SCH (08:09)
[2016-06-25 08:45] LABS: BUN/CREATININE RATIO 13.8 (10-20); CREATININE 1.9 mg/dl (0.60-1.40); MAGNESIUM 1.9 mg/dl (1.8-2.4); POTASSIUM 4.2 mmol/L (3.5-5.1)
[2016-06-25 08:53] LABS: BASO % 0.1 %; BASO ABS # 0.01 K/uL (0-0.2); COMPLETE YES; EOS % 1.4 %; LYMPH ABS # 1.01 K/uL (1.2-3.4); MONO % 6.5 %
[2016-06-25] MEDS ORDERED: FUROSEMIDE 20 MG TAB PO ONE (10:30)
--- NOTE | 2016-06-25 10:40 | CARDIOLOGY PROGRESS NOTE ---
DATE: 06/25/2016 SUBJECTIVE: This morning, Mr. Manish Sylvestre reports feeling quite well. He reports continued fatigue and weakness, but did not report symptoms of dizziness, lightheadness, shortness of breath, chest pain or palpitations. He has not had any additional bowel movements or bleeding. He has been minimally ambulatory around the room, but does get up to the bathroom with assistance and does not report rosales problems with the exception of the aforementioned weakness. PHYSICAL EXAMINATION: GENERAL: He was alert and oriented, mood and affect appeared normal. He answered all questions appropriately. CURRENT VITAL SIGNS: Include blood pressure of 123/69 with a pulse of 67. LUNGS: Auscultation of both lung cho reveal the apices to be clear. CARDIAC: Noted to be in a regular rhythm and I did not appreciate any murmurs on examination. EXTREMITIES: Evaluation of the lower extremities did reveal marked peripheral edema on both extremities past the knee bilaterally. LABORATORY STUDIES: Obtained included a sodium was 143, potassium of 4.2, BUN was 26, and creatinine was 1.9. White cell count was 7.3, hemoglobin was 9.0, platelet count of 159. ASSESSMENT AND PLAN: 1. Atrial fibrillation, appears to be paroxysmal in nature, currently in a sinus rhythm. The true etiology is likely age related plus possible volume shifts. At this point, it seems reasonable to convert the patient short-acting diltiazem to a long-acting formulation, probably 120 mg daily. As noted in the other records, this will substitute for his amlodipine that he was taking as an outpatient. The patient is also on carvedilol as an outpatient, this has been discontinued due to concerns over fatigue in the event patient is no longer taking carvedilol at the time of discharge. Consideration could be given to increasing the dose of long-acting diltiazem to 180 or 240 mg daily. With respect to his anticoagulation, he seems to have a relative contraindication currently given his history of gastrointestinal hemorrhage; however, in the future this problem appears to be resolved. He should be considered for true prophylaxis with full anticoagulation. I do not think there is any particular efficacy with aspirin in this role, given his comorbidities. 2. Peripheral edema. The patient has generalized anasarca; he has scrotal edema as well as lower extremity edema. His left ventricular systolic function was normal, diastolic function could not be well evaluated; however, given his relatively well controlled heart rate currently and overall normal BP , this would be unlikely to cause a significant edema seen. As noted in the other notes, this may in fact be related to his poor nutritional status and hypoalbuminemia. At this point, cardiology will sign off. Please call with additional questions or concerns. I will make arrangements to see Mr. Sylvester on an outpatient basis. AIME
[2016-06-25 13:31] VITALS: BP 100/65; PULSE 82
--- NOTE | 2016-06-25 14:20 | Gastroenterology Progress Note ---
Progress Note Date of Service: Jun 25, 2016 Subjective Pt evaluation today including: conversation w/ patient, physical exam, chart review, lab review, review of studies, review of inpatient medication list CC f/u diarrhrea, GI bleeding HPI Son with patient. No stools since yesterday. He is eating well. No abd pain Review of Systems Respiratory: No shortness of breath Cardiac: No chest pain Medications Current Inpatient Medications Medications (Trade) Dose Ordered Sig/Katherine Route Start Time Stop Time Status Last Admin Dose Admin Acetaminophen (Tylenol Tab) 650 mg Q4H PRN PO 06/19/16 02:00 07/19/16 01:59 Al Hydrox/Mg Hydrox/Simethicone (Maalox Max Susp) 15 ml Q4H PRN PO 06/19/16 02:00 07/19/16 01:59 Ondansetron HCl (Zofran Inj) 4 mg Q6H PRN IV 06/19/16 02:00 07/19/16 01:59 06/22/16 21:09 4 MG Latanoprost (Xalatan Oph Soln) 1 drops QPM OP 06/19/16 21:00 07/19/16 20:59 06/24/16 20:57 1 DROPS Alfuzosin HCl (Uroxatral Tab) 10 mg QAM PO 06/19/16 09:00 07/19/16 08:59 06/25/16 07:23 10 MG Alprazolam (Xanax Tab) 0.25 mg Q8H PRN PO 06/19/16 03:00 07/19/16 02:59 06/21/16 20:53 0.25 MG Oxycodone/ Acetaminophen (Percocet 5-325mg Tab) 1 tab Q4H PRN PO 06/19/16 03:00 07/03/16 02:59 Hydralazine HCl (HydrALAZINE INJ) 5 mg Q6H PRN IV. 06/19/16 09:00 07/19/16 08:59 Sucralfate (Carafate Susp) 1 gm BID PO 06/20/16 21:00 07/20/16 20:59 06/25/16 07:24 1 GM Megestrol Acetate (Megace Susp) 800 mg QAM PO 06/21/16 09:00 07/21/16 08:59 06/25/16 07:23 800 MG Clonidine HCl (Catapres Tab) 0.2 mg BID PO 06/20/16 21:00 07/20/16 20:59 Future Hold 06/25/16 08:09 0.2 MG Gabapentin (Neurontin Cap) 100 mg HS PO 06/20/16 21:00 07/20/16 20:59 06/24/16 20:56 100 MG Brimonidine Tartrate (Alphagan 0.2% Soln) 1 drops BID OPL 06/20/16 21:00 07/20/16 20:59 06/25/16 07:24 1 DROPS Diltiazem HCl (Cardizem Tab) 30 mg TID PO 06/21/16 14:00 07/21/16 13:59 06/25/16 07:23 30 MG Pantoprazole Sodium (Protonix Tab) 40 mg BID PO 06/23/16 20:00 07/23/16 20:59 06/25/16 07:24 40 MG Objective Vital Signs Date Time Temp Pulse Resp B/P Pulse Ox O2 Delivery O2 Flow Rate FiO2 06/25/16 13:31 82 100/65 06/25/16 08:00 Room Air 06/25/16 07:16 36.7 67 20 152/88 99 Room Air 06/25/16 00:00 Room Air 06/24/16 23:40 36.7 74 20 103/65 98 Room Air 06/24/16 20:53 72 109/69 97 Room Air 06/24/16 20:00 Room Air 06/24/16 16:36 72 106/64 06/24/16 15:33 78/56 06/24/16 15:30 Room Air 06/24/16 14:46 36.8 78 20 93/58 97 Room Air Physical Exam General Appearance: WD/WN, no apparent distress Respiratory/Chest: lungs clear, no respiratory distress Cardiovascular: no murmur Abdomen: normal bowel sounds, non tender, soft, no organomegaly Neurologic/Psych: normal mood/affect, oriented x 3 Laboratory Results Last 24 Hours Test 06/24/16 16:10 06/25/16 06:38 White Blood Count 7.43 K/uL 7.23 K/uL Red Blood Count 2.98 M/uL 3.10 M/uL Hemoglobin 8.8 g/dL 9.0 g/dL Hematocrit 27.2 % 27.7 % Mean Corpuscular Volume 91.3 fL 89.4 fL Mean Corpuscular Hemoglobin 29.5 pg 29.0 pg Mean Corpuscular Hemoglobin Concent 32.4 g/dl 32.5 g/dl Platelet Count 134 K/uL 159 K/uL Mean Platelet Volume 8.8 fL 8.9 fL Neutrophils (%) (Auto) 83.4 % 77.0 % Lymphocytes (%) (Auto) 8.6 % 14.0 % Monocytes (%) (Auto) 5.9 % 6.5 % Eosinophils (%) (Auto) 1.1 % 1.4 % Basophils (%) (Auto) 0.1 % 0.1 % Neutrophils # (Auto) 6.19 K/uL 5.57 K/uL Lymphocytes # (Auto) 0.64 K/uL 1.01 K/uL Monocytes # (Auto) 0.44 K/uL 0.47 K/uL Eosinophils # (Auto) 0.08 K/uL 0.10 K/uL Basophils # (Auto) 0.01 K/uL 0.01 K/uL RDW Standard Deviation 56.8 fL 56.9 fL RDW Coefficient of Variation 17.5 % 17.6 % Immature Granulocyte % (Auto) 0.9 % 1.0 % Immature Granulocyte # (Auto) 0.07 K/uL 0.07 K/uL Anisocytosis PRESENT Sodium Level 143 mmol/L 143 mmol/L Potassium Level 4.0 mmol/L 4.2 mmol/L Chloride Level 113 mmol/L 111 mmol/L Carbon Dioxide Level 20 mmol/L 20 mmol/L Anion Gap 10.0 mmol/L 12.0 mmol/L Blood Urea Nitrogen 25 mg/dl 26 mg/dl Creatinine 1.80 mg/dl 1.90 mg/dl Est Creatinine Clear Calc Drug Dose 28.0 ml/min 26.5 ml/min Estimated GFR () 38.9 36.4 Estimated GFR (Non- 33.6 31.4 BUN/Creatinine Ratio 13.7 13.8 Random Glucose 135 mg/dl 89 mg/dl Calcium Level 7.5 mg/dl 8.0 mg/dl Magnesium Level 1.9 mg/dl Assessment and Plan recurrent GI bleeding----resolved-----EGD this admit with non bleeding DU path negative for H.pylori. Colonoscopy showed ulceration which could be source-- path pending. Colon ulceration---- in hepatic flexure differential medication (Inlyta, ASA), crohns, less likely ischemia given distribution. DU--continue PPI bid po Diarrhea--could be from the colon ulceration--resolved wt loss--no obvious cancer on chest CT/ A/P CT. Pts appetite is good in the hospital. Acute blood loss anemia--Hgb stable as of yesterday. Todays labs cancelled for some reason. OK for DC from GI standpoint. .
[2016-06-25 14:53] VITALS: BP 96/63; PULSE 87; TEMP 36.3; O2SAT 99
--- NOTE | 2016-06-25 15:52 | Family Medicine Progress Note ---
Progress Note Date of Service Jun 25, 2016. Subjective Pt evaluation today including: conversation w/ patient, physical exam, chart review, lab review Voiding: no voiding problems Patient was seen at the bedside. He was comfortably lying down on her bed. He states that today he noticed swelling on his scrotum, he is not sure if he had that yesterday. Denies any pain or urinary incontinence. Tolerating food well. Denies any diarrhea, melena, hematochezia, nausea, vomiting, abdominal pain, SOB , chest pain, palpitation or any other additional symptoms. Constitutional: No fever, No weight loss Respiratory: No cough, No dyspnea on exertion, No shortness of breath, No sputum, No wheezing Cardiovascular: No chest pain, No palpitations Abdomen: No GI bleeding, No diarrhea, No nausea, No pain, No vomiting Musculoskeletal: + problem reported (b/l leg swelling), No muscle pain Male : + problem reported (scrotal swelling), No dysuria Skin: No rash Medications Current Inpatient Medications Medications (Trade) Dose Ordered Sig/Katherine Route Start Time Stop Time Status Last Admin Dose Admin Acetaminophen (Tylenol Tab) 650 mg Q4H PRN PO 06/19/16 02:00 07/19/16 01:59 Al Hydrox/Mg Hydrox/Simethicone (Maalox Max Susp) 15 ml Q4H PRN PO 06/19/16 02:00 07/19/16 01:59 Ondansetron HCl (Zofran Inj) 4 mg Q6H PRN IV 06/19/16 02:00 07/19/16 01:59 06/22/16 21:09 4 MG Latanoprost (Xalatan Oph Soln) 1 drops QPM OP 06/19/16 21:00 07/19/16 20:59 06/24/16 20:57 1 DROPS Alfuzosin HCl (Uroxatral Tab) 10 mg QAM PO 06/19/16 09:00 07/19/16 08:59 06/25/16 07:23 10 MG Alprazolam (Xanax Tab) 0.25 mg Q8H PRN PO 06/19/16 03:00 07/19/16 02:59 06/21/16 20:53 0.25 MG Oxycodone/ Acetaminophen (Percocet 5-325mg Tab) 1 tab Q4H PRN PO 06/19/16 03:00 07/03/16 02:59 Hydralazine HCl (HydrALAZINE INJ) 5 mg Q6H PRN IV. 06/19/16 09:00 07/19/16 08:59 Sucralfate (Carafate Susp) 1 gm BID PO 06/20/16 21:00 07/20/16 20:59 06/25/16 07:24 1 GM Megestrol Acetate (Megace Susp) 800 mg QAM PO 06/21/16 09:00 07/21/16 08:59 06/25/16 07:23 800 MG Clonidine HCl (Catapres Tab) 0.2 mg BID PO 06/20/16 21:00 07/20/16 20:59 Future Hold 06/25/16 08:09 0.2 MG Gabapentin (Neurontin Cap) 100 mg HS PO 06/20/16 21:00 07/20/16 20:59 06/24/16 20:56 100 MG Brimonidine Tartrate (Alphagan 0.2% Soln) 1 drops BID OPL 06/20/16 21:00 07/20/16 20:59 06/25/16 07:24 1 DROPS Diltiazem HCl (Cardizem Tab) 30 mg TID PO 06/21/16 14:00 07/21/16 13:59 06/25/16 07:23 30 MG Pantoprazole Sodium (Protonix Tab) 40 mg BID PO 06/23/16 20:00 07/23/16 20:59 06/25/16 07:24 40 MG Objective Vital Signs Date Time Temp Pulse Resp B/P Pulse Ox O2 Delivery O2 Flow Rate FiO2 06/25/16 14:53 36.3 87 20 96/63 99 Room Air 06/25/16 13:31 82 100/65 06/25/16 08:00 Room Air 06/25/16 07:16 36.7 67 20 152/88 99 Room Air 06/25/16 00:00 Room Air 06/24/16 23:40 36.7 74 20 103/65 98 Room Air 06/24/16 20:53 72 109/69 97 Room Air 06/24/16 20:00 Room Air 06/24/16 16:36 72 106/64 Physical Exam General Appearance: WD/WN, no apparent distress, + cachetic Neck: supple, trachea midline Respiratory/Chest: chest non-tender, lungs clear, normal breath sounds, no respiratory distress Cardiovascular: regular rate, rhythm, no murmur Abdomen: normal bowel sounds, non tender, soft, no pulsatile mass Extremities: non-tender, no calf tenderness, + pedal edema (b/l 1+ pitting edema noted) Neurologic/Psychiatric: alert, normal mood/affect, oriented x 3 Laboratory Results Results Past 24 Hours Test 06/24/16 16:10 06/25/16 06:38 Range/Units White Blood Count 7.43 7.23 4.8-10.8 K/uL Red Blood Count 2.98 3.10 4.7-6.1 M/uL Hemoglobin 8.8 9.0 14.0-18.0 g/dL Hematocrit 27.2 27.7 42-52 % Mean Corpuscular Volume 91.3 89.4 80-100 fL Mean Corpuscular Hemoglobin 29.5 29.0 25-34 pg Mean Corpuscular Hemoglobin Concent 32.4 32.5 32-36 g/dl Platelet Count 134 159 130-400 K/uL Mean Platelet Volume 8.8 8.9 7.4-10.4 fL Neutrophils (%) (Auto) 83.4 77.0 % Lymphocytes (%) (Auto) 8.6 14.0 % Monocytes (%) (Auto) 5.9 6.5 % Eosinophils (%) (Auto) 1.1 1.4 % Basophils (%) (Auto) 0.1 0.1 % Neutrophils # (Auto) 6.19 5.57 1.4-6.5 K/uL Lymphocytes # (Auto) 0.64 1.01 1.2-3.4 K/uL Monocytes # (Auto) 0.44 0.47 0.11-0.59 K/uL Eosinophils # (Auto) 0.08 0.10 0-0.5 K/uL Basophils # (Auto) 0.01 0.01 0-0.2 K/uL RDW Standard Deviation 56.8 56.9 36.4-46.3 fL RDW Coefficient of Variation 17.5 17.6 11.5-14.5 % Immature Granulocyte % (Auto) 0.9 1.0 % Immature Granulocyte # (Auto) 0.07 0.07 0.00-0.02 K/uL Anisocytosis PRESENT Sodium Level 143 143 136-145 mmol/L Potassium Level 4.0 4.2 3.5-5.1 mmol/L Chloride Level 113 111 98-107 mmol/L Carbon Dioxide Level 20 20 21-32 mmol/L Anion Gap 10.0 12.0 3-11 mmol/L Blood Urea Nitrogen 25 26 7-18 mg/dl Creatinine 1.80 1.90 0.60-1.40 mg/dl Est Creatinine Clear Calc Drug Dose 28.0 26.5 ml/min Estimated GFR () 38.9 36.4 Estimated GFR (Non- 33.6 31.4 BUN/Creatinine Ratio 13.7 13.8 10-20 Random Glucose 135 89 70-99 mg/dl Calcium Level 7.5 8.0 8.5-10.1 mg/dl Magnesium Level 1.9 1.8-2.4 mg/dl Assessment and Plan This is a 85 y/o male with PMHx of duodenal ulcer and metastatic renal cell carcinoma presented to the with GI bleeding and diarrhea. Patient had multiple episodes of A fib today with heart rate in 140s and 150s. He remains asymptomatic. 1. GI Bleed with hx of duodenal ulcer (resolved) - Most likely 2/2 colonic ulceration found on Colonoscopy. Ulceration could be secondary to drug induced (Inlyta, ASA) or other GI conditions (Cronh's disease, which is less likely given the location) - Hgb is stable - S/p Pantoprazole drip - C/w PO Protonix 40mg BID - D/c IVF to avoid volume overload - EGD in [facility] (04/30/2016): showed duodenal ulcer, epinephrine injection therapy was applied to control bleeding and argon beam coagulation was applied to control bleeding - Colonoscopy in [facility] (07/06/2009): showed moderately severe diverticulosis found in the sigmoid colon and internal hemorrhoids - EGD here this admission (06/19): showed non bleeding duodenal ulcer and no obvious upper gastrointestinal bleeding source. The biopsies showed no evidence for Helicobacter pylori infection, no evidence of chronic gastritis in the antrum with moderate activity, and the duodenal biopsies showed no evidence for amyloid and otherwise normal duodenal mucosa. - GI was consulted (Dr. Barksdale) and recommended: Clear liquid diet, IV PPI BID, if bleeding occurs, obtained tagged red cell scan. Also if bleeding recurs and for diarrhea colonoscopy once patient is stable. - Colonoscopy (06/22) done by Dr. Maldonado: showed mucosal ulceration in the hepatic flexure and diverticulosis in the left colon. - CT Abd/Pelvis (06/24): 1. Mild/moderate edema in the soft tissues consistent with nonspecific anasarca. 2. Mild generalized nonobstructive ileus. 3. Prior right kidney resection with several left renal parapelvic cyst. 4. Mild perirectal wall thickening with endoscopic evaluation to exclude a lesion is recommended. 5. Bilateral pleural effusions with mild bibasilar atelectatic change. - GI recommended to continue with Protonix 40mg BID 2. A. fib - Patient is currently on sinus rhythm - Patient had episode of A fib on 06/21 around 5:00am. Converter to sinus rhythm later in the afternoon. Could be 2/2 volume depletion and/or anemia in the sitting of chronic bloody diarrhea. - S/p 5mg of Metoprolol, Digoxin 0.5mg and 2 doses of 0.25mg q6h (total 3 doses) - S/p Diltiazem drip - Troponin was normal, TSH and free T4 were also normal - Cardiology was consulted and I spoke with Dr. Madrigal and he agreed with the rate controlled. - Echo was performed on 06/21 and showed mild asymmetric left ventricular hypertrophy with EF 65-70%. No valvular abnormalities and other significant findings was noted. - Spoke with Dr. Madrigal and he recommended at this point to continue with Diltiazem and monitor. - Switch short acting Diltiazem to long acting Diltiazem 120mg daily per Cardio Recommendation - Contraindicated for anticoagulant at this moment given the GI bleeding - Cardio will follow up as outpatient 3. Peripheral edema - Patient has lower extremities and scrotal edema. This is most likely 2/2 to volume overload. Given normal EF and normal left ventricular systolic function, very less likely the etiology is cardiac. Patient is asymptomatic otherwise. - Chest CT (06/24) showed small bilateral pleural effusions with mild bibasilar atelectatic change - Patient gained over 4kg over the course of hospital stay - Given 20mg of Lasix today - Continue to monitor - Chest CT (06/24): 1. Moderate emphysematous change. 2. 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 3. Small bilateral pleural effusions with mild bibasilar atelectatic change. 4. Diarrhea (resolved) - Patient denies any diarrhea today, diarrhea could be 2/2 to colonic ulceration as found on coloscopy - EGD performed on 06/19 showed no bleeding duodenal ulcer - C. Diff is negative - Coloscopy was performed today and showed colonic ulceration - GI recommended to continue with PPI 40mg BID 5. Anemia - Stable - S/p 3 units of PRBC 6. Electrolytes abnormalities - Potassium: replete - Mg: replete 7. Duodenal ulcers - D/c IV Protonix drip - C/w Protonix 40mg BID - C/w Sucralfate 1gm BID 8. History of renal cell carcinoma - Continue to hold Inlyta as has association with GI bleeding, perforation and fistula formation + may be cause of diarrhea and nausea - Consult Heme/Onc, awaiting for their recommendation about holding Inlyta - I spoke with Dr. Roque on 06/21 and briefly discussed the case with him. I informed him that we are currently holding Inlyta and he received 2 units of blood (non irradiated blood). He states that at this moment it is ok to hold Inlyta and wait for further recommendation by Dr. Stoner. - Dr. Stoner saw the patient and recommended to transfuse 2 unit of blood. He will continue to follow and will appreciate his recommendations. 9. Anxiety - Continue PRN alprazolam 10. Hypertension - Switch short acting to long acting Diltiazem 120mg daily - Holding Clonidine 0.2mg given hypotension - C/w hydralazine 10 mg Q6H IV PRN for sBP > 180, dBP > 90 - D/c Amlodipine on discharge, Diltiazem will cover for this - Continue to hold carvedilol 12.5 mg BID (GI bleed and he notes one of his blood pressure medications is making him feel tired and which may be the carvedilol). If hold carvedilol on discharge consider change Diltiazem ER to 180 or 240mg. 11. Glaucoma - Latanoprost 1 drop each eye daily 12. BPH - C/w Alfuzosin 10mg qam 13. DVT prophylaxis - SCDs and TEDs - Chemical prophylaxis is contraindicated given GI bleeding 14. Code Status - DNR Patient was evaluate by PT/OT and they recommended to continue with PT and OT through out the hospital course and discharge with home PT. Case management on board. Patient desires for outpatient physical therapy per case management note. Reviewed: Pt Seen/Exam by Me Respiratory: negative: short of breath Cardiovascular: reports edema (both legs and scrotum), denies chest pain Gastrointestinal/Abdominal: negative: abdominal pain General Appearance: no apparent distress Respiratory: lungs clear, no respiratory distress Cardiovascular: irregularly irregular Neurologic/Psychiatric: alert, oriented x 3 Skin Characteristics: warm/dry Assessment/Plan I have reviewed the medical record and performed a history and physical examination of this patient today. I have discussed the case with Dr. Sanchez. The above note reflects my findings, conclusions, and recommendations.
[2016-06-25] MEDS: LATANOPROST 0.005% OP SOLN 2.5 ML BTL OP SCH (21:37)
[2016-06-25] MEDS: GABAPENTIN 100 MG CAP PO SCH (21:37)
[2016-06-25 23:09] VITALS: BP 127/86; PULSE 89; TEMP 36.8; O2SAT 97
[2016-06-26 06:31] LABS: HEMATOCRIT 29.7 % (42-52); MEAN CELL VOLUME 90.5 fL (80-100); MEAN CORPUSCULAR HEMOGLOBIN 29.3 pg (25-34); MEAN CORPUSCULAR HGB CONC 32.3 g/dl (32-36); MEAN PLATELET VOLUME 9.2 fL (7.4-10.4); PLATELET COUNT 168 K/uL (130-400); RED BLOOD COUNT 3.28 M/uL (4.7-6.1); WHITE BLOOD COUNT 7.89 K/uL (4.8-10.8)
[2016-06-26 07:11] LABS: BUN/CREATININE RATIO 13.6 (10-20); CALCIUM 8.1 mg/dl (8.5-10.1); CREATININE 2.2 mg/dl (0.60-1.40); POTASSIUM 4.6 mmol/L (3.5-5.1)
[2016-06-26 07:16] VITALS: BP 142/90; PULSE 84; TEMP 36.8; O2SAT 98
[2016-06-26] MEDS: SUCRALFATE 1 GM/10 ML UDC PO SCH ×2 (07:47→19:35)
[2016-06-26] MEDS: MEGESTROL ACETATE 800 MG/20 ML UDP PO SCH (07:47)
[2016-06-26] MEDS: ALFUZosin TAB 10 MG TAB PO SCH (07:48)
[2016-06-26] MEDS: PANTOprazole SOD 40 MG TAB PO SCH ×2 (07:48→19:36)
[2016-06-26] MEDS: BRIMONIDINE TARTRATE 0.2% 5ML OPL SCH ×2 (07:48→19:34)
[2016-06-26] MEDS ORDERED: DILTIAZEM HCL 120 MG ER CAP PO SCH (08:00)
[2016-06-26] MEDS ORDERED: FUROSEMIDE 40 MG TAB PO ONE (11:45)
[2016-06-26 14:50] VITALS: BP 105/67; PULSE 100; TEMP 36.2; O2SAT 99
--- NOTE | 2016-06-26 16:38 | GASTROINTESTINAL CONSULTATION ---
DATE OF CONSULTATION: 06/26/2016 HISTORY OF PRESENT ILLNESS: Mr. Sylvester reports that he is doing well. His diarrhea has resolved. He has no rectal bleeding and reports no abdominal pain, nausea, vomiting or hematemesis. His pathology samples from the colonoscopy on Saturday are pending. His upper endoscopy had revealed normal duodenum without evidence of infiltrative amyloid and biopsies from the stomach for H. pylori negative with moderate chronic gastritis. LABORATORY DATA: His hemoglobin is stable at 9.6, white count 7.9, platelets 168,000. BUN and creatinine are 30 and 2.2, which has drifted upward over the last few days. PHYSICAL EXAMINATION: GENERAL: Otherwise unremarkable. HEART: Normal S1, S2. ABDOMEN: Soft, flat, nontender, nondistended with good bowel sounds. EXTREMITIES: Without edema. The patient does have evidence of scrotal swelling which he reports is new. This is nontender in nature. IMPRESSION AND PLAN: Colonoscopy with erosions in the hepatic flexure region and biopsies of the colon are pending at this time. Clinically, the patient's diarrhea has resolved. Await results of the biopsies for further recommendations. Source of scrotal edema is unclear. He may require imaging to exclude venous or vascular congestion.
--- NOTE | 2016-06-26 17:43 | Family Medicine Progress Note ---
Progress Note Date of Service Jun 26, 2016. Subjective Pt evaluation today including: conversation w/ patient, physical exam, lab review Pain: Denies Voiding: no voiding problems Patient was seen at the bedside. He states that he could walk around today because of the scrotal swelling. Denies any scrotal pain, urinary incontinence, or dysuria. Tolerating diet well. Denies any chest pain, SOB, nausea, vomiting, abdominal pain, diarrhea, or any other additional symptoms. Constitutional: No fever Respiratory: No cough, No dyspnea on exertion, No shortness of breath, No sputum, No wheezing Cardiovascular: No chest pain, No edema Abdomen: No GI bleeding, No diarrhea, No nausea, No pain, No vomiting Musculoskeletal: + swelling (b/l lower extremities), No muscle pain Male : + problem reported (scrotal swelling), No dysuria Skin: No rash Medications Current Inpatient Medications Medications (Trade) Dose Ordered Sig/Katherine Route Start Time Stop Time Status Last Admin Dose Admin Acetaminophen (Tylenol Tab) 650 mg Q4H PRN PO 06/19/16 02:00 07/19/16 01:59 Al Hydrox/Mg Hydrox/Simethicone (Maalox Max Susp) 15 ml Q4H PRN PO 06/19/16 02:00 07/19/16 01:59 Ondansetron HCl (Zofran Inj) 4 mg Q6H PRN IV 06/19/16 02:00 07/19/16 01:59 06/22/16 21:09 4 MG Latanoprost (Xalatan Oph Soln) 1 drops QPM OP 06/19/16 21:00 07/19/16 20:59 06/25/16 21:37 1 DROPS Alfuzosin HCl (Uroxatral Tab) 10 mg QAM PO 06/19/16 09:00 07/19/16 08:59 06/26/16 07:48 10 MG Alprazolam (Xanax Tab) 0.25 mg Q8H PRN PO 06/19/16 03:00 07/19/16 02:59 06/21/16 20:53 0.25 MG Oxycodone/ Acetaminophen (Percocet 5-325mg Tab) 1 tab Q4H PRN PO 06/19/16 03:00 07/03/16 02:59 Hydralazine HCl (HydrALAZINE INJ) 5 mg Q6H PRN IV. 06/19/16 09:00 07/19/16 08:59 Sucralfate (Carafate Susp) 1 gm BID PO 06/20/16 21:00 07/20/16 20:59 06/26/16 07:47 1 GM Megestrol Acetate (Megace Susp) 800 mg QAM PO 06/21/16 09:00 07/21/16 08:59 06/26/16 07:47 800 MG Clonidine HCl (Catapres Tab) 0.2 mg BID PO 06/20/16 21:00 07/20/16 20:59 Future Hold 06/25/16 08:09 0.2 MG Gabapentin (Neurontin Cap) 100 mg HS PO 06/20/16 21:00 07/20/16 20:59 06/25/16 21:37 100 MG Brimonidine Tartrate (Alphagan 0.2% Soln) 1 drops BID OPL 06/20/16 21:00 07/20/16 20:59 06/26/16 07:48 1 DROPS Pantoprazole Sodium (Protonix Tab) 40 mg BID PO 06/23/16 20:00 07/23/16 20:59 06/26/16 07:48 40 MG Carvedilol (Coreg Tab) 3.125 mg BID PO 06/26/16 20:00 07/26/16 19:59 Objective Vital Signs Date Time Temp Pulse Resp B/P Pulse Ox O2 Delivery O2 Flow Rate FiO2 06/26/16 16:00 Room Air 06/26/16 14:50 36.2 100 18 105/67 99 Room Air 06/26/16 08:00 Room Air 06/26/16 07:16 36.8 84 20 142/90 98 Room Air 06/26/16 00:00 Room Air 06/25/16 23:09 36.8 89 18 127/86 97 Room Air 06/25/16 20:00 Room Air Physical Exam General Appearance: WD/WN, no apparent distress, + cachetic, + thin Neck: supple, trachea midline Respiratory/Chest: chest non-tender, lungs clear, normal breath sounds, no respiratory distress Cardiovascular: regular rate, rhythm, no murmur Abdomen: normal bowel sounds, non tender, soft Extremities: non-tender, no calf tenderness, + pedal edema (2+ b/l pedal edema) Neurologic/Psychiatric: alert, normal mood/affect Skin: normal color, warm/dry Laboratory Results Results Past 24 Hours Test 06/26/16 06:20 Range/Units White Blood Count 7.89 4.8-10.8 K/uL Red Blood Count 3.28 4.7-6.1 M/uL Hemoglobin 9.6 14.0-18.0 g/dL Hematocrit 29.7 42-52 % Mean Corpuscular Volume 90.5 80-100 fL Mean Corpuscular Hemoglobin 29.3 25-34 pg Mean Corpuscular Hemoglobin Concent 32.3 32-36 g/dl RDW Standard Deviation 57.0 36.4-46.3 fL RDW Coefficient of Variation 17.4 11.5-14.5 % Platelet Count 168 130-400 K/uL Mean Platelet Volume 9.2 7.4-10.4 fL Sodium Level 142 136-145 mmol/L Potassium Level 4.6 3.5-5.1 mmol/L Chloride Level 111 98-107 mmol/L Carbon Dioxide Level 22 21-32 mmol/L Anion Gap 9.0 3-11 mmol/L Blood Urea Nitrogen 30 7-18 mg/dl Creatinine 2.20 0.60-1.40 mg/dl Est Creatinine Clear Calc Drug Dose 22.9 ml/min Estimated GFR () 30.5 Estimated GFR (Non- 26.3 BUN/Creatinine Ratio 13.6 10-20 Random Glucose 90 70-99 mg/dl Calcium Level 8.1 8.5-10.1 mg/dl Assessment and Plan This is a 85 y/o male with PMHx of duodenal ulcer and metastatic renal cell carcinoma presented to the with GI bleeding and diarrhea. 1. GI Bleed with hx of duodenal ulcer (resolved) - Most likely 2/2 erosions in the hepatic flexure region found on Colonoscopy. Ulceration could be secondary to drug induced (Inlyta, ASA) or other GI conditions (Cronh's disease, which is less likely given the location) - Hgb is stable - S/p Pantoprazole drip - C/w PO Protonix 40mg BID - D/c IVF to avoid volume overload - EGD in [facility] (04/30/2016): showed duodenal ulcer, epinephrine injection therapy was applied to control bleeding and argon beam coagulation was applied to control bleeding - Colonoscopy in [facility] (07/06/2009): showed moderately severe diverticulosis found in the sigmoid colon and internal hemorrhoids - EGD here this admission (06/19): showed non bleeding duodenal ulcer and no obvious upper gastrointestinal bleeding source. The biopsies showed no evidence for Helicobacter pylori infection, no evidence of chronic gastritis in the antrum with moderate activity, and the duodenal biopsies showed no evidence for amyloid and otherwise normal duodenal mucosa. - GI was consulted (Dr. Barksdale) and recommended: Clear liquid diet, IV PPI BID, if bleeding occurs, obtained tagged red cell scan. Also if bleeding recurs and for diarrhea colonoscopy once patient is stable. - Colonoscopy (06/22) done by Dr. Maldonado: showed mucosal ulceration in the hepatic flexure and diverticulosis in the left colon. - GI recommended to continue with Protonix 40mg BID 2. A. fib - Patient is currently on sinus rhythm - Patient had episode of A fib on 06/21 around 5:00am. Converter to sinus rhythm later in the afternoon. Could be 2/2 volume depletion and/or anemia in the sitting of chronic bloody diarrhea. - S/p 5mg of Metoprolol, Digoxin 0.5mg and 2 doses of 0.25mg q6h (total 3 doses) - S/p Diltiazem drip - Troponin was normal, TSH and free T4 were also normal - Contraindication of anticoagulant at this moment given GI bleeding - Echo was performed on 06/21 and showed mild asymmetric left ventricular hypertrophy with EF 65-70%. No valvular abnormalities and other significant findings was noted. - Spoke with Dr. Madrigal and at this point we will hold Diltiazem 120mg given possible side effect of edema. - Will start Carvedilol 3.125 BID - Cardio will follow up as outpatient 3. Peripheral edema - Patient has lower extremities and scrotal edema. This is most likely 2/2 to volume overload. Given normal EF and normal left ventricular systolic function, very less likely the etiology is cardiac. Patient is asymptomatic otherwise. - Chest CT (06/24) showed small bilateral pleural effusions with mild bibasilar atelectatic change - Patient gained over 4kg over the course of hospital stay - Continue to monitor - Chest CT (06/24): Moderate emphysematous change. Small bilateral pleural effusions with mild bibasilar atelectatic change. - CT Abd/Pelvis (06/24): 1. Mild/moderate edema in the soft tissues consistent with nonspecific anasarca. 2. Mild generalized nonobstructive ileus. 3. Prior right kidney resection with several left renal parapelvic cyst. 4. Mild perirectal wall thickening with endoscopic evaluation to exclude a lesion is recommended. 5. Bilateral pleural effusions with mild bibasilar atelectatic change. - Given 40mg of Lasix today - Continue to monitor 4. Diarrhea (resolved) - Patient denies any diarrhea today, diarrhea could be 2/2 to colonic ulceration found on coloscopy - EGD performed on 06/19 showed non bleeding duodenal ulcer and no active source of bleeding - C. Diff is negative - Coloscopy showed erosions in the hepatic flexure region, biopsy is pending - GI recommended to continue with PPI 40mg BID 5. Anemia - Stable - S/p 3 units of PRBC 6. Electrolytes abnormalities - Potassium: replete - Mg: replete 7. Duodenal ulcers - D/c IV Protonix drip - C/w Protonix 40mg BID - C/w Sucralfate 1gm BID 8. History of renal cell carcinoma - Continue to hold Inlyta as has association with GI bleeding, perforation and fistula formation + may be cause of diarrhea and nausea - Consult Heme/Onc, awaiting for their recommendation about holding Inlyta - I spoke with Dr. Roque on 06/21 and briefly discussed the case with him. I informed him that we are currently holding Inlyta and he received 2 units of blood (non irradiated blood). He states that at this moment it is ok to hold Inlyta and wait for further recommendation by Dr. Stoner. - Dr. Stoner saw the patient and recommended to transfuse 2 unit of blood. He will continue to follow and will appreciate his recommendations. - Spoke with Dr. Stoner today and he recommended to continue to hold Inlyta on discharge and he will follow up with him as outpatient 9. Anxiety - Continue PRN alprazolam 10. Hypertension - Discontinued long acting Diltiazem 120mg daily given possible side effect is edema - Holding Clonidine 0.2mg given hypotension - C/w hydralazine 10 mg Q6H IV PRN for sBP > 180, dBP > 90 - D/c Amlodipine on discharge - Start on Carvedilol 3.125 mg BID 11. Glaucoma - Latanoprost 1 drop each eye daily 12. BPH - C/w Alfuzosin 10mg qam 13. DVT prophylaxis - SCDs and TEDs - Chemical prophylaxis is contraindicated given GI bleeding 14. Code Status - DNR Dispo: Discharge home tomorrow with home service. Reviewed: Pt Seen/Exam by Me History feeling weak. still has leg swelling Constitutional: denies: fever Respiratory: negative: short of breath Cardiovascular: denies chest pain Musculoskeletal: positive: other (leg swelling) General Appearance: no apparent distress Respiratory: lungs clear, no respiratory distress Cardiovascular: irregularly irregular Extremities: other (leg edema slightly better. ) Neurologic/Psychiatric: alert, oriented x 3 Assessment/Plan I have reviewed the medical record and performed a history and physical examination of this patient today. I have discussed the case with Dr. Sanchez. The above note reflects my findings, conclusions, and recommendations.
[2016-06-26 19:32] VITALS: BP 122/69; PULSE 55; PULSE 87
[2016-06-26] MEDS: CARVEDILOL 3.125 MG TAB PO SCH (19:35)
[2016-06-26] MEDS: LATANOPROST 0.005% OP SOLN 2.5 ML BTL OP SCH (21:41)
[2016-06-26] MEDS: GABAPENTIN 100 MG CAP PO SCH (21:41)
[2016-06-26] MEDS: ALPRAZOLAM 0.25 MG TAB PO PRN (22:27)
[2016-06-27 00:05] VITALS: BP 127/78; PULSE 94; TEMP 37; O2SAT 98
[2016-06-27 06:16] LABS: HEMATOCRIT 30.1 % (42-52); MEAN CELL VOLUME 90.4 fL (80-100); MEAN CORPUSCULAR HEMOGLOBIN 29.1 pg (25-34); MEAN CORPUSCULAR HGB CONC 32.2 g/dl (32-36); MEAN PLATELET VOLUME 9.1 fL (7.4-10.4); PLATELET COUNT 191 K/uL (130-400); RED BLOOD COUNT 3.33 M/uL (4.7-6.1); WHITE BLOOD COUNT 9.17 K/uL (4.8-10.8)
[2016-06-27 06:55] LABS: BUN/CREATININE RATIO 16.8 (10-20); CALCIUM 8.3 mg/dl (8.5-10.1); CREATININE 2.2 mg/dl (0.60-1.40)
[2016-06-27 07:06] VITALS: BP 123/71; PULSE 97; TEMP 36.7; O2SAT 94
[2016-06-27] MEDS: MEGESTROL ACETATE 800 MG/20 ML UDP PO SCH (08:13)
[2016-06-27] MEDS: PANTOprazole SOD 40 MG TAB PO SCH (08:13)
[2016-06-27] MEDS: ALFUZosin TAB 10 MG TAB PO SCH (08:13)
[2016-06-27] MEDS: CARVEDILOL 3.125 MG TAB PO SCH (08:13)
[2016-06-27] MEDS: SUCRALFATE 1 GM/10 ML UDC PO SCH (08:13)
[2016-06-27] MEDS: BRIMONIDINE TARTRATE 0.2% 5ML OPL SCH (08:14)
[2016-06-27] MEDS ORDERED: CRG3125 PO (08:45)
[2016-06-27] MEDS ORDERED: FURO-85 PO (08:45)
--- NOTE | 2016-06-27 08:54 | Discharge Instructions ---
Discharge Instructions Date of Service Jun 27, 2016. Admission Reason for Admission: Diarrhea, Gi Bleed Discharge Discharge Diagnosis / Problem: Diarrhea and GI bleeding secondary to colonic ulceration Discharge Goals Goal(s): Decrease discomfort, Improve disease control, Therapeutic intervention Activity Recommendations Activity Limitations: resume your previous activity . Instructions / Follow-Up Instructions / Follow-Up You were admitted for GI bleeding and diarrhea. Endoscopy was performed and showed non bleeding duodenal ulcer Colonoscopy showed mucosal ulceration on the colon You also had atrial fibrillation while you were in the hospital and Cardiology was consulted for that and you were started on a rate controlled drug. Please follow the following instructions: - Continue taking the Protonix - Stop Carvedilol 12.5 mg(earlier dose you were in). - Prescribed new dose of Carvedilol 3.125mg, please take it as instructed. - Prescribed you a water pill, Lasix 20mg daily to improve the swelling. Please take it for 1-2 weeks and follow up with the primary doctor whether you should continue taking it or not. - Follow up with your primary doctor in 2-3days - Follow up with Cardiology Dr. Madrigal in 1-2 weeks. Call the doctor, as listed on the discharge paper and make appointment. Current Hospital Diet Patient's current hospital diet: AHA Diet (Heart Healthy) Discharge Diet Recommended Diet: Regular Diet Procedures Procedures Performed: Colonoscopy with BX Pending Studies Studies pending at discharge: no Medical Emergencies . Who to Call and When: Medical Emergencies: If at any time you feel your situation is an emergency, please call 911 immediately. . Non-Emergent Contact Non-Emergency issues call your: Primary Care Provider . . "Provider Documentation" section prepared by Silas Sanchez. VTE Core Measure Inpt VTE Proph given/why not?: THerber Stockings, SCD's, Contraindicated
--- NOTE | 2016-06-27 09:38 | Gastroenterology Progress Note ---
Progress Note Date of Service: Jun 27, 2016 Subjective Pt evaluation today including: conversation w/ patient, physical exam, chart review, lab review, review of studies, review of inpatient medication list cc F/u GI bleeding, diarrhea HPI No further diarrhea. Denies abd pain and is eating well. Pt states only one stool since colonoscopy and was yesterday. Path from colonoscopy still pending. Review of Systems Respiratory: No shortness of breath Cardiac: No chest pain Medications Current Inpatient Medications Medications (Trade) Dose Ordered Sig/Katherine Route Start Time Stop Time Status Last Admin Dose Admin Acetaminophen (Tylenol Tab) 650 mg Q4H PRN PO 06/19/16 02:00 07/19/16 01:59 Al Hydrox/Mg Hydrox/Simethicone (Maalox Max Susp) 15 ml Q4H PRN PO 06/19/16 02:00 07/19/16 01:59 Ondansetron HCl (Zofran Inj) 4 mg Q6H PRN IV 06/19/16 02:00 07/19/16 01:59 06/22/16 21:09 4 MG Latanoprost (Xalatan Oph Soln) 1 drops QPM OP 06/19/16 21:00 07/19/16 20:59 06/26/16 21:41 1 DROPS Alfuzosin HCl (Uroxatral Tab) 10 mg QAM PO 06/19/16 09:00 07/19/16 08:59 06/27/16 08:13 10 MG Alprazolam (Xanax Tab) 0.25 mg Q8H PRN PO 06/19/16 03:00 07/19/16 02:59 06/26/16 22:27 0.25 MG Oxycodone/ Acetaminophen (Percocet 5-325mg Tab) 1 tab Q4H PRN PO 06/19/16 03:00 07/03/16 02:59 Hydralazine HCl (HydrALAZINE INJ) 5 mg Q6H PRN IV. 06/19/16 09:00 07/19/16 08:59 Sucralfate (Carafate Susp) 1 gm BID PO 06/20/16 21:00 07/20/16 20:59 06/27/16 08:13 1 GM Megestrol Acetate (Megace Susp) 800 mg QAM PO 06/21/16 09:00 07/21/16 08:59 06/27/16 08:13 800 MG Clonidine HCl (Catapres Tab) 0.2 mg BID PO 06/20/16 21:00 07/20/16 20:59 Future Hold 06/25/16 08:09 0.2 MG Gabapentin (Neurontin Cap) 100 mg HS PO 06/20/16 21:00 07/20/16 20:59 06/26/16 21:41 100 MG Brimonidine Tartrate (Alphagan 0.2% Soln) 1 drops BID OPL 06/20/16 21:00 07/20/16 20:59 06/27/16 08:14 1 DROPS Pantoprazole Sodium (Protonix Tab) 40 mg BID PO 06/23/16 20:00 07/23/16 20:59 06/27/16 08:13 40 MG Carvedilol (Coreg Tab) 3.125 mg BID PO 06/26/16 20:00 07/26/16 19:59 06/27/16 08:13 3.125 MG Objective Vital Signs Date Time Temp Pulse Resp B/P Pulse Ox O2 Delivery O2 Flow Rate FiO2 06/27/16 08:00 Room Air 06/27/16 07:06 36.7 97 20 123/71 94 Room Air 06/27/16 00:05 37.0 94 20 127/78 98 Room Air 06/27/16 00:00 Room Air 06/26/16 20:00 Room Air 06/26/16 19:32 87 122/69 06/26/16 16:00 Room Air 06/26/16 14:50 36.2 100 18 105/67 99 Room Air Physical Exam General Appearance: WD/WN, no apparent distress Respiratory/Chest: lungs clear, no respiratory distress Cardiovascular: no murmur Abdomen: normal bowel sounds, non tender, soft, no organomegaly Neurologic/Psych: normal mood/affect, + abnormal cerebellar tests Laboratory Results Last 24 Hours Test 06/27/16 05:20 06/27/16 05:30 Sodium Level 144 mmol/L Potassium Level 4.0 mmol/L Chloride Level 111 mmol/L Carbon Dioxide Level 22 mmol/L Anion Gap 11.0 mmol/L Blood Urea Nitrogen 37 mg/dl Creatinine 2.20 mg/dl Est Creatinine Clear Calc Drug Dose 22.9 ml/min Estimated GFR () 30.5 Estimated GFR (Non- 26.3 BUN/Creatinine Ratio 16.8 Random Glucose 89 mg/dl Calcium Level 8.3 mg/dl White Blood Count 9.17 K/uL Red Blood Count 3.33 M/uL Hemoglobin 9.7 g/dL Hematocrit 30.1 % Mean Corpuscular Volume 90.4 fL Mean Corpuscular Hemoglobin 29.1 pg Mean Corpuscular Hemoglobin Concent 32.2 g/dl RDW Standard Deviation 57.3 fL RDW Coefficient of Variation 17.5 % Platelet Count 191 K/uL Mean Platelet Volume 9.1 fL Assessment and Plan recurrent GI bleeding----resolved-----EGD this admit with non bleeding DU path negative for H.pylori. Colonoscopy showed ulceration which could be source-- path pending. Colon ulceration---- in hepatic flexure differential medication (Inlyta, ASA), crohns, less likely ischemia given distribution. DU--continue PPI bid po Diarrhea--could be from the colon ulceration--resolved wt loss--no obvious cancer on chest CT/ A/P CT. Pts appetite is good in the hospital. Acute blood loss anemia--Hgb stable. OK for DC from GI standpoint. .
[2016-06-27 10:37] VITALS: BP 123/71; PULSE 97; TEMP 36.7; O2SAT 94
--- NOTE | 2016-06-27 22:00 | Discharge Summary ---
Discharge Summary Date of Service Jun 27, 2016. (Silas Sanchez MD) Discharge Summary Admission Date: Jun 19, 2016 at 01:56 Discharge Date: Jun 27, 2016 Discharge Disposition: Home with services Principal Diagnosis: GI bleeding and diarrhea secondary to colonic ulceration Immunizations: Have You Had Influenza Vaccine: No Influenza Vaccine Date: Mar 02, 2005 History of Tetanus Vaccine?: Yes Tetanus Immunization Date: Jul 31, 2002 History of Pneumococcal: Yes Pneumococcal Date: Jul 31, 2001 History of Hepatitis B Vaccine: No Procedures: Patient Name: BEL HAQ Unit Number: [id number] Dictated: 06/24/16 1024 Transcribed: 06/24/16 1024 MS Printed Date/Time: [~ rep prt dt]/[~ rep prt tm] [~ rep ct labl] - [~ rep ct ivnm] [facility] [place] [place] [address] Dictated: 06/24/16 1024 Transcribed: 06/24/16 1024 MS Printed Date/Time: [~ rep prt dt]/[~ rep prt tm] [~ rep ct labl] - [~ rep ct ivnm] CHEST CT WITHOUT CONTRAST CT DOSE: 960.21 mGy.cm HISTORY: weight loss, hx renal cancer TECHNIQUE: Multiaxial CT images of the chest were performed without contrast. COMPARISON: None. 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 Lungs are considered generally clear. There are small bilateral pleural effusions. Findings of mild basilar atelectasis. Atherosclerotic change and ectasia thoracic aorta. No significant or bulky hilar or mediastinal adenopathy. IMPRESSION: 1. Moderate emphysematous change. 2. 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 3. Small bilateral pleural effusions with mild bibasilar atelectatic change. Electronically signed by: Jian Giles M.D. 06/24/2016 10:26 AM Dictated Date/Time: 06/24/2016 10:24 AM The status of this report is Signed. Draft = Not yet reviewed or approved by Radiologist. Signed = Reviewed and approved by Radiologist. <AttendingPhy>Wang Kirkpatrick D.O.</AttendingPhy> <FamilyPhy>Stacy Lux D.O.</FamilyPhy> <PrimaryPhy>Lux,Stacy B. D.O.</PrimaryPhy> <UnitNumber> [id number]</UnitNumber> <VisitNumber>[id number]</VisitNumber> <PatientName> BEL HAQ</PatientName> <DateOfBirth>1930</DateOfBirth> <Location>[facility]< /Location> <ServiceDate></ServiceDate> <MNE>ESINDI</MNE> <OrderingPhy>Bo Maldonado M.D.</OrderingPhy> <OrderingPhyMNE>f rep ord dr pope</OrderingPhyMNE> < DictatingPhyMNE>f rep dict dr pope</DictatingPhyMNE> <CCListMNE>f rep ct mne</ CCListMNE> <AdmittingPhyMNE>f pt admit dr pope</AdmittingPhyMNE> <AttendingPhyMNE >f pt attend dr pope</AttendingPhyMNE> <ConsultingPhyMNE>f pt consult dr pope</ConsultingPhyMNE> <FamilyPhyMNE>f pt fam dr pope</FamilyPhyMNE> <OtherPhyMNE>f pt other dr pope</OtherPhyMNE> < PrimaryPhyMNE>f pt prim care dr pope</PrimaryPhyMNE> <ReferringPhyMNE>f pt referring dr pope</ReferringPhyMNE> Patient Name: BEL HAQ Unit Number: [id number] Dictated: 06/24/161028 Transcribed: 06/24/161028 MS Printed Date/Time: [~ rep prt dt]/[~ rep prt tm] [~ rep ct labl] - [~ rep ct ivnm] [facility] [place] [place] [address] Dictated: 06/24/161028 Transcribed: 06/24/161028 MS Printed Date/Time: [~ rep prt dt]/[~ rep prt tm] [~ rep ct labl] - [~ rep ct ivnm] ABDOMEN AND PELVIS CT WITH ORAL CONTRAST CT DOSE: HISTORY: weight loss, hx of renal cancer TECHNIQUE: Multiaxial CT images of the abdomen and pelvis were performed following the use of oral contrast. COMPARISON STUDY: None. FINDINGS: Small bilateral pleural effusions. Mild bibasilar atelectasis. Within limitations of an unenhanced scan liver is grossly unremarkable. Patient status post right fracture. There are several left renal parapelvic cysts. Considerable postoperative changes to the thoracolumbar spine. There is increased fecal load within the a sending colon. There may be a mild nonobstructive ileus. There is no evidence pneumatosis. Findings of mild chronic sigmoid diverticulosis. Mild thickening over the presacral fascial planes is present. Moderate perirectal wall thickening is present. Mild nonspecific edema and/or anasarca of the associated soft tissues. IMPRESSION: 1. Mild/moderate edema in the soft tissues consistent with nonspecific anasarca.] 2. Mild generalized nonobstructive ileus. 3. Prior right kidney resection with several left renal parapelvic cyst. 4. Mild perirectal wall thickening with endoscopic evaluation to exclude a lesion is recommended. 5. Bilateral pleural effusions with mild bibasilar atelectatic change. Electronically signed by: Jian Giles M.D. 06/24/2016 10:32 AM Dictated Date/Time: 06/24/2016 10:29 AM The status of this report is Signed. Draft = Not yet reviewed or approved by Radiologist. Signed = Reviewed and approved by Radiologist. <AttendingPhy>Wang Kirkpatrick D.O.</AttendingPhy> <FamilyPhy>Stacy Lux D.O.</FamilyPhy> <PrimaryPhy>Stacy Lux D.O.</PrimaryPhy> <UnitNumber> [id number]</UnitNumber> <VisitNumber>[id number]</VisitNumber> <PatientName> BEL HAQ</PatientName> <DateOfBirth>1930</DateOfBirth> <Location>[facility]< /Location> <ServiceDate></ServiceDate> <MNE>ESINDI</MNE> <OrderingPhy>Bo Maldonado M.D.</OrderingPhy> <OrderingPhyMNE>f rep ord dr pope</OrderingPhyMNE> < DictatingPhyMNE>f rep dict dr pope</DictatingPhyMNE> <CCListMNE>f rep ct tracye</ CCListMNE> <AdmittingPhyMNE>f pt admit dr pope</AdmittingPhyMNE> <AttendingPhyMNE >f pt attend dr pope</AttendingPhyMNE> <ConsultingPhyMNE>f pt consult dr pope</ConsultingPhyMNE> <FamilyPhyMNE>f pt fam dr pope</FamilyPhyMNE> <OtherPhyMNE>f pt other dr pope</OtherPhyMNE> < PrimaryPhyMNE>f pt prim care dr pope</PrimaryPhyMNE> <ReferringPhyMNE>f pt referring dr pope</ReferringPhyMNE> (Silas Sanchez MD) Medication Reconciliation New Medications: Furosemide (Lasix) 20 Mg Tab 1 TAB PO DAILY for 30 Days, #30 TAB 5 Refills Carvedilol (Carvedilol) 3.125 Mg Tab 3.125 MG PO BID for 21 Days, TAB Continued Medications: Alfuzosin Hcl (Uroxatral) 10 Mg Tab 10 MG PO DAILY, 0 Refills Alprazolam (Xanax) 0.5 Mg Tab 0.5 MG PO Q8 PRN for Anxiety/Agitation, TAB Aspirin Enteric Coated (Ecotrin Or Generic *) 81 Mg Ectab 81 MG PO DAILY, 0 Refills Axitinib (Inlyta) 5 Mg Tab 5 MG PO Q12 Brimonidine Tartrate (Alphagan P) 75 Drops/5 Ml Soln 1 DROPS OPL BID, #5 ML 2 Refills Docusate Sodium (Colace *) 100 Mg Cap 100 MG PO TID, 0 Refills Gabapentin (Neurontin) 100 Mg Cap 100 MG PO HS, CAP Latanoprost (Xalatan 0.005% Oph Michelle) 0.005 % Michelle 1 DROPS OP HS, #7.5 ML 3 Refills Multiple Vitamins W/ Minerals (Centrum Silver Adult 50+) 1 Tab Tab 1 TAB PO DAILY Olmesartan/Hctz (Benicar Hct 20/12.5) Tab 1 TAB PO DAILY for 30 Days, #30 TAB 5 Refills Ondansetron Hcl (Zofran) 4 Mg Tab 4 MG PO Q6H PRN for Nausea, TAB Oxycodone/Acetaminophen 5MG/325MG (Oxycodone/Acetaminophen 5MG/325MG) 1 Tab Tab 2 TABLETS PO Q4H PRN for Pain, TAB Pantoprazole (Protonix) 40 Mg Tab 80 MG PO DAILY, #30 TAB Paroxetine (Paxil) 20 Mg Tab 20 MG PO DAILY, TAB Sucralfate (Carafate) 1 Gm Tab 1 TAB PO BID for 30 Days, #60 TAB 1 Refill Zinc Sulfate (Zinc Sulfate) 220 Mg Cap 50 MG PO DAILY, CAP Discontinued Medications: Amlodipine (Norvasc) 2.5 Mg Tab 2.5 MG PO DAILY, TAB Carvedilol (Coreg) 12.5 Mg Tab 1 TAB PO DAILY for 90 Days, #90 TAB 1 Refill Referrals At Discharge Follow up Referrals: Clinical Lab Assistant Referral - Within 1-2 Weeks @ [facility] [place]Cardiology with Ahmet Madrigal MD Discharge Exam Patient was seen at the bedside during discharged. He states that he is feeling better. Denies any diarrhea, melena, hematochezia, nausea, vomiting or any other additional problems. He is tolerating food well. He still have b/l leg edema and scrotal swelling but it is improving. Review of Systems: Constitutional: + weakness, No chills, No fever Respiratory: No cough, No dyspnea at rest, No dyspnea on exertion, No shortness of breath, No sputum, No wheezing Cardiovascular: No chest pain, No claudication, No palpitations Abdomen: No GI bleeding, No constipation, No diarrhea, No nausea, No pain, No vomiting Musculoskeletal: + swelling (b/l leg and scrotal swelling), No joint pain, No muscle pain Genitourinary - Male: No dysuria, No hematuria, No urinary frequency, No urinary urgency Integumentary: No rash Physical Exam: General Appearance: WD/WN, no apparent distress Neck: supple, no carotid bruits, trachea midline Respiratory/Chest: chest non-tender, lungs clear, normal breath sounds, no respiratory distress, no accessory muscle use Cardiovascular: regular rate, rhythm, no edema, no murmur, normal peripheral pulses Abdomen / GI: normal bowel sounds, non tender, soft Extremities: no calf tenderness, non-tender, + pedal edema, + swelling, + pertinent finding (1+ pitting edema noted on b/l lower extremities) Neurologic/Psychiatric: alert, normal mood/affect, oriented x 3 Skin: normal color, warm/dry, no rash (Silas Sanchez MD) Review of Systems: Constitutional: No fever Respiratory: No shortness of breath Cardiovascular: No chest pain Abdomen: No pain Physical Exam: General Appearance: no apparent distress Respiratory/Chest: lungs clear, no respiratory distress Cardiovascular: + irregularly irregular Abdomen / GI: normal bowel sounds, non tender, soft Extremities: + pedal edema Neurologic/Psychiatric: alert, oriented x 3 (Jesusita Saba M.D.) Hospital Course This is a 85 y/o male who is a direct transfer from [facility] for GI bleed and diarrhea because the endoscopy suite there is under renovation. Per patient he was constipated for 1 day and then he start having diarrhea the day he came to the hospital. He noticed dark red blood mixed with stool. He didn't have any abdominal pain. He was recently admitted as per the [facility] ER notes in mid April with a duodenal ulcer (Dr Caal) requiring a blood transfusion. Patient states that he has been having GI issues since Jan 2016. These episode of intermittent diarrhea and constipation last for around 2 days each time. He estimates he has lost about 10lb of weight in this time. He reports 7 admissions to [facility] for GI bleeding but is unsure how many EGDs he has had. He thinks his last colonoscopy was around 20 years previously. 1. GI Bleed/diarrhea secondary to colonic ulceration - Most likely 2/2 erosions in the hepatic flexure region found on Colonoscopy. Ulceration could be secondary to drug induced (Inlyta, ASA) or other GI conditions (Cronh's disease, which is less likely given the location). Hgb was stable on discharge (9.7), s/p 3 units of PRBC. Patient was initially started on Protonix drip then switched to IV and later PO Protonix 40mg BID. EGD in [facility] (04/30/2016) showed duodenal ulcer, epinephrine injection therapy was applied to control bleeding and argon beam coagulation was applied to control bleeding. Colonoscopy in [facility] (07/06/2009) showed moderately severe diverticulosis found in the sigmoid colon and internal hemorrhoids. EGD here this admission (06/19) showed non bleeding duodenal ulcer and no obvious upper gastrointestinal bleeding source. The biopsies showed no evidence for Helicobacter pylori infection, no evidence of chronic gastritis in the antrum with moderate activity, and the duodenal biopsies showed no evidence for amyloid and otherwise normal duodenal mucosa. Colonoscopy (06/22) done by Dr. Maldonado showed mucosal ulceration in the hepatic flexure and diverticulosis in the left colon. On discharge patient was recommended to continue with Protonix per GI recommendation. 2. A. fib - new onset given no documented previous episodes - Patient had episode of A fib on 06/21 around 5:00am. Converter to sinus rhythm later in the afternoon. Could be 2/2 volume depletion and/or anemia in the sitting of chronic bloody diarrhea. Patient had multiple episodes of Afib on tele afterward, which would convert to sinus rhythm shortly. Patient was started on Diltiazem drip for Afib and was switched to PO diltiazem 30mg TID after he converted to sinus rhythm. His home medication amlodipine was held given he was on diltiazem and no need for two CCB. Anticoagulant was contraindicated given GI bleeding. Echo was performed on 06/21 and showed mild asymmetric left ventricular hypertrophy with EF 65-70%. No valvular abnormalities and other significant findings was noted. Given his peripheral edema and possible side effects of CCB I spoke with Cardiology Dr. Madrigal and he agreed to hold Diltiazem on discharge. At home he was on 12.5mg of Carvedilol. Given hypotension during discharge 12.5mg of Carvedilol was discontinued and started him on 3.125mg of Carvedilol. Dr. Madrigal will follow up with him as outpatient in 1-2 weeks. 3. Peripheral edema - Patient has lower extremities and scrotal edema, which wasn't present during admission. This is most likely 2/2 to volume overload from the IVF. Given normal EF and normal left ventricular systolic function, very less likely the etiology is cardiac. Patient was asymptomatic otherwise. Chest CT (06/24) showed small bilateral pleural effusions with mild bibasilar atelectatic change. CT Abd/Pelvis showed mild/moderate edema in the soft tissues consistent with nonspecific anasarca. Patient was given Lasix and monitored his I/O. On discharge he was given 20mg Lasix and instructed to follow up with the PCP in 2- 3 days to reassess the need for Lasix. 8. History of renal cell carcinoma - Inlyta was hold on discharge given that it has association with GI bleeding, perforation and fistula formation + may be cause of diarrhea and nausea. Consult Heme/Onc and spoke with Dr. Madison. He recommended to continue to hold Inlyta on discharge and he will follow up with him as outpatient Patient was discharge with home physical therapy as recommended by PT/OT. Total Time Spent: Greater than 30 minutes This includes examination of the patient, discharge planning, medication reconciliation, and communication with other providers. (Silas Sanchez MD) I have reviewed the medical record and performed a history and physical examination of this patient today. I have discussed the case with Dr. Sanchez. The above note reflects my findings, conclusions, and recommendations. Total Time Spent: Greater than 30 minutes (Jesusita Saba M.D.) Discharge Instructions Please refer to the electronic Patient Visit Report (Discharge Instructions) for additional information. (Silas Sanchez MD) Additional Copies To Stacy Lux D.O.
== END 2016-06-27 11:40 | disposition home or self-care (01) | DRG 394 ==
LOC: ENRESERVDT → ENRESERVTM → ENRESERV → C.2E 06-19 01:26 → UNDOADMIN 06-19 01:26 → C.2E 06-19 01:56 → C.MS4W 06-23 18:37
PROVIDERS: ADMIT Internal Medicine; ATTEND Family Medicine
PROC: 0DB68ZX Excision of Stomach, Via Natural or Artificial Opening Endoscopic, Diagnostic (ICD-10-PCS; principal; 2016-06-19 17:19)
PROC: 0DB98ZX Excision of Duodenum, Via Natural or Artificial Opening Endoscopic, Diagnostic (ICD-10-PCS; principal; 2016-06-19 17:19)
PROC: 0DBK8ZX Excision of Ascending Colon, Via Natural or Artificial Opening Endoscopic, Diagnostic (ICD-10-PCS; 2016-06-22)
DX: K63.3 Ulcer of intestine (principal); K92.2 Gastrointestinal hemorrhage, unspecified; D62 Acute posthemorrhagic anemia; C64.9 Malignant neoplasm of unspecified kidney, except renal pelvis; K50.10 Crohn's disease of large intestine without complications; K92.1 Melena; H40.9 Unspecified glaucoma; F41.9 Anxiety disorder, unspecified; K26.9 Duodenal ulcer, unspecified as acute or chronic, without hemorrhage or perforation; K44.9 Diaphragmatic hernia without obstruction or gangrene; R63.4 Abnormal weight loss; K52.9 Noninfective gastroenteritis and colitis, unspecified; I12.9 Hypertensive chronic kidney disease with stage 1 through stage 4 chronic kidney disease, or unspecified chronic kidney disease; N18.9 Chronic kidney disease, unspecified; Z66 Do not resuscitate; K59.00 Constipation, unspecified; K22.2 Esophageal obstruction; N40.0 Benign prostatic hyperplasia without lower urinary tract symptoms; K57.30 Diverticulosis of large intestine without perforation or abscess without bleeding; K29.50 Unspecified chronic gastritis without bleeding; T45.1X5A Adverse effect of antineoplastic and immunosuppressive drugs, initial encounter; T39.015A Adverse effect of aspirin, initial encounter; I48.0 Paroxysmal atrial fibrillation; E87.6 Hypokalemia; E83.42 Hypomagnesemia; E86.9 Volume depletion, unspecified; E87.8 Other disorders of electrolyte and fluid balance, not elsewhere classified; N50.89 Other specified disorders of the male genital organs; R60.0 Localized edema; R60.1 Generalized edema; Z87.19 Personal history of other diseases of the digestive system; Z90.5 Acquired absence of kidney; Z98.890 Other specified postprocedural states; Z79.82 Long term (current) use of aspirin; Z79.899 Other long term (current) drug therapy